=== PATIENT | male | born 1930 | race Caucasian/White ===

== ENCOUNTER 2016-12-19 16:44 | Emergency (ER) | payer OTHER ==
[~2016-12-19] VITALS: Ht 170.2 cm; Wt 72.7 kg
[~2016-12-19 16:44] MED LIST: CALC0.5C4 PO; CLOP75TA27 PO; DOCU-144 PO; GABA300C16 PO; MELO-110 PO; METO50TA16 PO; TAMS0.4C2 PO
[2016-12-19 17:08] VITALS: Ht 170.2 cm; Wt 72.7 kg
[2016-12-19] MEDS ORDERED: CARV12.579 PO (19:47)
[2016-12-19] MEDS ORDERED: CLON-379 PO (19:51)
[2016-12-19] MEDS ORDERED: ZOLP5TAB6 PO (19:51)
[2016-12-19] MEDS ORDERED: HYDR-3671 PO (19:53)
[2016-12-19] MEDS ORDERED: AMLO-147 PO (19:54)
[2016-12-19] MEDS ORDERED: FAMO20TA18 PO (19:55)
[2016-12-19] MEDS ORDERED: BICA50TA4 PO (19:55)
[2016-12-19 21:00] VITALS: BP 145/72; PULSE 77; RESP 19; TEMP 99.3
[2016-12-19] MEDS ORDERED: NITROFURANTOIN (SR) 100 MG CAP PO ONE (21:00)
[2016-12-19 21:04] LABS: ADD UMIC YES; URINE BILIRUBIN (Dip) 1+ (NEGATIVE); URINE BLOOD (Dip) 3+ (NEGATIVE); URINE GLUCOSE (Dip) NEGATIVE (NEGATIVE); URINE KETONES (Dip) NEGATIVE (NEGATIVE); URINE LEUKOCYTE ESTERASE (Dip) 2+ (NEGATIVE); URINE NITRITE (Dip) NEGATIVE (NEGATIVE); URINE TOTAL PROTEIN (Dip) 4+ (NEGATIVE); URINE UROBILINOGEN (Dip) 0.2 E.U./dL (0.1-1.0)
[2016-12-19 21:06] LABS: URINE COLOR RED (YELLOW)
--- NOTE | 2016-12-19 21:10 | ERD ---
ER Documentation Chief Complaint Date/Time DATE: 12/19/16 TIME: 21:08 Chief Complaint urine cath is loose and causing pain HPI This is an 86-year-old male who presents to the emergency room for evaluation of a malfunctioning urinary catheter. This patient does have a catheter in place for benign prostatic hypertrophy. The patient states that his catheter is "loose and causing him some pain". The patient denies any fevers, chills or back pain at this time ROS All systems reviewed and are negative except as per history of present illness. Medications Home Meds Reported Medications Bicalutamide* (Bicalutamide*) 50 Mg Tablet, 50 MG PO DAILY, TAB 12/19/16 Famotidine* (Famotidine*) 20 Mg Tablet, 20 MG PO QHS, #30 TAB 12/19/16 Amlodipine Besylate* (Amlodipine Besylate*) 10 Mg Tablet, 10 MG PO DAILY, #30 TAB 12/19/16 Hydralazine Hcl* (Hydralazine Hcl*) 25 Mg Tab, 25 MG PO TID, #90 TAB HOLD IF SBP<110 12/19/16 Zolpidem Tartrate* (Zolpidem Tartrate*) 5 Mg Tablet, 5 MG PO QHS Y for INSOMNIA , #30 TAB 12/19/16 Clonidine Hcl* (Clonidine Hcl*) 0.1 Mg Tab, 0.1 MG PO Q6, TAB 12/19/16 Carvedilol* (Carvedilol*) 12.5 Mg Tablet, 12.5 MG PO BID, #60 TAB HOLD IF SBP<110,HR<60 12/19/16 Discontinued Reported Medications Meloxicam* (Mobic*) 15 Mg Tablet, 15 MG PO DAILY, TAB 07/25/15 Docusate Sodium* (Colace*) 100 Mg Capsule, 100 MG PO BID Y for CONSTIPATION, CAP 07/25/15 Tamsulosin Hcl* (Tamsulosin Hcl*) 0.4 Mg Cap.er.24h, 0.4 MG PO HS, CAP 07/25/15 Clopidogrel Bisulfate (Clopidogrel) 75 Mg Tablet, 75 MG PO DAILY, TAB 07/25/15 Calcitriol* (Calcitriol*) 0.5 Mcg Capsule, 0.5 MCG PO DAILY, CAP 07/25/15 Gabapentin* (Gabapentin*) 300 Mg Capsule, 300 MG PO BID, CAP 07/25/15 Metoprolol Succinate* (Toprol XL*) 50 Mg Tab.er.24h, 50 MG PO DAILY, TAB 07/25/15 Allergies Allergies: Coded Allergies: No Known Allergy (Verified , 12/19/16) PMhx/Soc History of Surgery: No Anesthesia Reaction: No Hx Neurological Disorder: Yes (syncope,CVA w/ LLE residual) Hx Respiratory Disorders: Yes (COPD) Hx Cardiac Disorders: Yes (HTN) Hx Psychiatric Problems: No Hx Miscellaneous Medical Probl: Yes (CKD, anemia,BPH W/ Nascimento cath) Hx Alcohol Use: Yes (rarely) Hx Substance Use: No Hx Tobacco Use: Yes Smoking Status: Former smoker Physical Exam Vitals Vital Signs Date Time Temp Pulse Resp B/P Pulse Ox O2 Delivery O2 Flow Rate FiO2 12/19/16 19:14 87 13 165/90 99 Room Air 12/19/16 17:08 99.3 87 18 160/75 96 Physical Exam Const: No acute distress Head: Atraumatic Eyes: Normal Conjunctiva ENT: Normal External Ears, Nose and Mouth. Neck: Full range of motion..~ No meningismus. Resp: Clear to auscultation bilaterally Cardio: Regular rate and rhythm, no murmurs Abd: Soft, non tender, non distended. Normal bowel sounds Skin: No petechiae or rashes Back: No midline or flank tenderness Ext: No cyanosis, or edema : Nascimento catheter in place Neur: Awake and alert Psych: Normal Mood and Affect Results 24 hrs Laboratory Tests Test 12/19/16 20:15 Urine Bilirubin 1+ Urine Clarity CLOUDY Urine Color RED Urine Glucose NEGATIVE% Urine Hemoglobin 3+ Urine Ictotest Pending Urine Ketones NEGATIVE Urine Leukocyte Esterase 2+ Urine Microscopic RBC Pending Urine Microscopic WBC Pending Urine Nitrite NEGATIVE Urine Specific [place] 1.025 Urine Total Protein 4+ Urine Urobilinogen 0.2 E.U./dL Urine pH 5.5 Current Medications Medications (Trade) Dose Ordered Sig/Scarlet Route PRN Reason Start Time Stop Time Status Last Admin Dose Admin Nitrofurantoin Macrocrystals (Macrobid) 100 mg ONCE ONCE PO 12/19/16 21:00 12/19/16 21:01 DC Procedures/MDM This 86-year-old male presents to the ER for evaluation of malfunctioning Nascimento catheter. We evaluated the Nascimento catheter was determined that the patient's Nascimento catheter did not have enough saline in the balloon. His catheter was replaced. The patient did have cloudy urine which does show acute urinary tract infection. Urine culture was sent. This patient was given Macrobid in the emergency room will be discharged home with a prescription for Macrobid. Departure Diagnosis: Primary Impression: Acute cystitis Additional Impression: Complication of catheter Condition: Stable ADRIAN GONZALEZ DO Dec 19, 2016 21:10
[2016-12-19] MEDS ORDERED: NITR-58 PO (21:11)
[2016-12-19 21:16] LABS: URINE RBCS >200 /HPF (0)
[2016-12-19 21:17] LABS: ICTOTEST NEGATIVE (NEGATIVE); SQUAMOUS EPITHELIAL CELL,UR FEW
[2016-12-19 21:18] LABS: BACTERIA,URINE MANY
== END 2016-12-19 22:10 | disposition home or self-care (01) ==
LOC: E/R 16:44
DX: N30.00 Acute cystitis without hematuria (principal); I12.9 Hypertensive chronic kidney disease with stage 1 through stage 4 chronic kidney disease, or unspecified chronic kidney disease; J44.9 Chronic obstructive pulmonary disease, unspecified; N18.9 Chronic kidney disease, unspecified; R40.2142 Coma scale, eyes open, spontaneous, at arrival to emergency department; R40.2252 Coma scale, best verbal response, oriented, at arrival to emergency department; R40.2362 Coma scale, best motor response, obeys commands, at arrival to emergency department; Y73.3 Surgical instruments, materials and gastroenterology and urology devices (including sutures) associated with adverse incidents; Z87.891 Personal history of nicotine dependence
CPT/HCPCS: 51702; 81001; 87086; Z7502; Z7610; 81003

== ENCOUNTER 2016-12-21 08:46 | Emergency (ER) | payer OTHER ==
[~2016-12-21] VITALS: Wt 72.4 kg
[~2016-12-21 08:46] MED LIST changes: +AMLO-147 PO; +BICA50TA4 PO; -CALC0.5C4 PO; +CARV12.579 PO; +CLON-379 PO; -CLOP75TA27 PO; -DOCU-144 PO; +FAMO20TA18 PO; -GABA300C16 PO; +HYDR-3671 PO; -MELO-110 PO; -METO50TA16 PO; +NITR-58 PO; -TAMS0.4C2 PO; +ZOLP5TAB6 PO
[2016-12-21 09:36] LABS: ADD SCAN DIFF NO
[2016-12-21 09:42] LABS: BASOPHILS % 0.2 % (0.0-2.0); EOSINOPHILS % 0.4 % (0.0-7.0); HEMATOCRIT 32.2 % (42.0-52.0); HEMOGLOBIN 10.3 g/dl (14.0-18.0); LYMPHOCYTES # 1.5 10^3/ul (0.8-2.9); LYMPHOCYTES % 13.5 % (15.0-51.0); MEAN CORPUSCULAR HEMOGLOBIN 30.6 pg (29.0-33.0); MEAN CORPUSCULAR VOLUME 95.5 fl (82.0-101.0); MONOCYTE # 1.1 10^3/ul (0.3-0.9); NEUTROPHIL # 8.3 10^3/ul (1.6-7.5); NEUTROPHILS % 75.5 % (39.0-77.0); PLATELET COUNT 203 10^3/UL (140-415); RED BLOOD COUNT 3.37 10^6/ul (4.70-6.10); RED CELL DISTRIBUTION WIDTH 12.2 % (11.5-14.5); WHITE BLOOD COUNT 10.9 10^3/ul (4.8-10.8)
[2016-12-21 09:47] LABS: MEAN PLATELET VOLUME 10.2 fl (7.4-10.4)
[2016-12-21 09:48] LABS: INR 1.07; POTASSIUM 4.4 mmol/L (3.5-5.1); PROTIME 13.9 Sec (12.2-14.2); PT RATIO 1.1
[2016-12-21 09:49] LABS: PARTIAL THROMBOPLASTIN TIME 28.8 Sec (25.0-35.0)
[2016-12-21 09:51] LABS: CREATININE 2.1 mg/dl (0.61-1.24)
[2016-12-21 09:52] LABS: CALCIUM 10.7 mg/dl (8.4-10.2)
[2016-12-21 09:57] LABS: ADD UMIC YES; URINE BILIRUBIN (Dip) NEGATIVE (NEGATIVE); URINE BLOOD (Dip) 3+ (NEGATIVE); URINE GLUCOSE (Dip) NEGATIVE (NEGATIVE); URINE KETONES (Dip) NEGATIVE (NEGATIVE); URINE LEUKOCYTE ESTERASE (Dip) 3+ (NEGATIVE); URINE NITRITE (Dip) NEGATIVE (NEGATIVE); URINE TOTAL PROTEIN (Dip) 2+ (NEGATIVE); URINE UROBILINOGEN (Dip) 0.2 E.U./dL (0.1-1.0)
[2016-12-21 10:01] LABS: URINE COLOR RED (YELLOW)
[2016-12-21 10:02] LABS: BACTERIA,URINE FEW; SQUAMOUS EPITHELIAL CELL,UR FEW; URINE RBCS >200 /HPF (0)
--- NOTE | 2016-12-21 10:35 | ERD ---
ER Documentation Chief Complaint Date/Time DATE: 12/21/16 TIME: 10:32 Chief Complaint low ap with pressure , kim not draining well since last night. no n/v. HPI Pleasant 86-year-old male. 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 Patient describes lower abdominal fullness. He feels that his Kim catheter is not draining since yesterday evening. The patient has an indwelling Kim catheter. He was recently started on Macrobid for UTI 3 days ago. No fevers or chills, no flank pain, no nausea vomiting or diarrhea. ROS All systems reviewed and are negative except as per history of present illness. Medications Home Meds Active Scripts Nitrofurantoin Monohyd Macrocr* (Macrobid*) 100 Mg Capsr, 100 MG PO BID for 14 Days, CAP Prov:ADRIAN GONZALEZ DO 12/19/16 Reported Medications Bicalutamide* (Bicalutamide*) 50 Mg Tablet, 50 MG PO DAILY, TAB 12/19/16 Famotidine* (Famotidine*) 20 Mg Tablet, 20 MG PO QHS, #30 TAB 12/19/16 Amlodipine Besylate* (Amlodipine Besylate*) 10 Mg Tablet, 10 MG PO DAILY, #30 TAB 12/19/16 Hydralazine Hcl* (Hydralazine Hcl*) 25 Mg Tab, 25 MG PO TID, #90 TAB HOLD IF SBP<110 12/19/16 Zolpidem Tartrate* (Zolpidem Tartrate*) 5 Mg Tablet, 5 MG PO QHS Y for INSOMNIA , #30 TAB 12/19/16 Clonidine Hcl* (Clonidine Hcl*) 0.1 Mg Tab, 0.1 MG PO Q6, TAB 12/19/16 Carvedilol* (Carvedilol*) 12.5 Mg Tablet, 12.5 MG PO BID, #60 TAB HOLD IF SBP<110,HR<60 12/19/16 Discontinued Reported Medications Meloxicam* (Mobic*) 15 Mg Tablet, 15 MG PO DAILY, TAB 07/25/15 Docusate Sodium* (Colace*) 100 Mg Capsule, 100 MG PO BID Y for CONSTIPATION, CAP 07/25/15 Tamsulosin Hcl* (Tamsulosin Hcl*) 0.4 Mg Cap.er.24h, 0.4 MG PO HS, CAP 07/25/15 Clopidogrel Bisulfate (Clopidogrel) 75 Mg Tablet, 75 MG PO DAILY, TAB 07/25/15 Calcitriol* (Calcitriol*) 0.5 Mcg Capsule, 0.5 MCG PO DAILY, CAP 07/25/15 Gabapentin* (Gabapentin*) 300 Mg Capsule, 300 MG PO BID, CAP 07/25/15 Metoprolol Succinate* (Toprol XL*) 50 Mg Tab.er.24h, 50 MG PO DAILY, TAB 07/25/15 Allergies Allergies: Coded Allergies: No Known Allergy (Verified , 12/19/16) PMhx/Soc History of Surgery: No Anesthesia Reaction: No Hx Neurological Disorder: Yes (syncope,CVA w/ LLE residual) Hx Respiratory Disorders: Yes (COPD) Hx Cardiac Disorders: Yes (HTN) Hx Psychiatric Problems: No Hx Miscellaneous Medical Probl: Yes (CKD, anemia,BPH W/ Kim cath) Hx Alcohol Use: Yes (rarely) Hx Substance Use: No Hx Tobacco Use: Yes Smoking Status: Current every day smoker FmHx Family History: No diabetes Physical Exam Vitals Vital Signs Date Time Temp Pulse Resp B/P Pulse Ox O2 Delivery O2 Flow Rate FiO2 12/21/16 09:30 98.6 78 20 130/77 100 Room Air 12/21/16 08:49 98.6 68 20 130/77 100 Physical Exam General: Well developed, well nourished, no acute distress Head: Normocephalic, atraumatic. Eyes: Pupils equally reactive, EOM intact ENT: Moist mucous membranes Neck: Supple, no lymphadenopathy Respiratory: Lungs clear bilaterally, no distress Cardiovascular: RRR, no murmurs, rubs, or gallops Abdominal: Soft, bladder distention, no focal tenderness no pulsatile mass : Deferred MSK: No edema, no unilateral swelling, 5/5 strength Neurologic: Alert and oriented, moving all extremities, normal speech, no focal weakness, no cerebellar signs Skin: No rash Psych: Normal mood Result Diagram: 12/21/1630 12/21/16 0930 Results 24 hrs Laboratory Tests Test 12/21/16 09:25 12/21/16 09:30 Urine Bacteria FEW Urine Bilirubin NEGATIVE Urine Clarity CLOUDY Urine Color RED Urine Glucose NEGATIVE% Urine Hemoglobin 3+ Urine Ketones NEGATIVE Urine Leukocyte Esterase 3+ Urine Microscopic RBC >200/HPF Urine Microscopic WBC 25-50/HPF Urine Nitrite NEGATIVE Urine Specific [place] 1.025 Urine Squamous Epithelial Cells FEW Urine Total Protein 2+ Urine Urobilinogen 0.2 E.U./dL Urine pH 5.5 Activated Partial Thromboplast Time 28.8Sec Anion Gap 18 Basophils # 0.010^3/ul Basophils % 0.2% Blood Urea Nitrogen 32mg/dl Calcium Level 10.7mg/dl Carbon Dioxide Level 23mmol/L Chloride Level 102mmol/L Creatinine 2.10mg/dl Eosinophils # 0.010^3/ul Eosinophils % 0.4% Glucose Level 169mg/dl Hematocrit 32.2% Hemoglobin 10.3g/dl INR International Normalized Ratio 1.07 Lymphocytes # 1.510^3/ul Lymphocytes % 13.5% Mean Corpuscular Hemoglobin 30.6pg Mean Corpuscular Hemoglobin Concent 32.0g/dl Mean Corpuscular Volume 95.5fl Mean Platelet Volume 10.2fl Monocytes # 1.110^3/ul Monocytes % 10.0% Neutrophils # 8.310^3/ul Neutrophils % 75.5% Nucleated Red Blood Cells # 0.010^3/ul Nucleated Red Blood Cells % 0.0/100WBC Platelet Count 61639^3/UL Potassium Level 4.4mmol/L Prothrombin Time 13.9Sec Prothrombin Time Ratio 1.1 Red Blood Count 3.3710^6/ul Red Cell Distribution Width 12.2% Sodium Level 139mmol/L White Blood Count 10.910^3/ul Procedures/MDM LAB INTERPRETATION: No coagulopathy. Creatinine consistent with baseline MEDICAL DECISION MAKING: The patient presents to the emergency room complaining of abdominal fullness. The patient has an indwelling Kim catheter, there is likely blockage. The patient exhibits no signs or symptoms concerning for alternative acute intra- abdominal process. Given that the patient did have some hematuria with Kim catheter changed laboratory testing will be initiated. Patient is currently taking Macrobid for presumed UTI. ER COURSE: The patient had gross hematuria. A Kim catheter was changed. The patient had good output and alleviation of symptoms completely. His laboratory testing shows no evidence of coagulopathy. The patient is currently on Macrobid. Urine culture sent. The patient is safe for discharge at this point. Follow- up with primary care physician and urologist is reasonable. I kept the patient and/or family informed of laboratory and diagnostic imaging results throughout the emergency room course. DISPOSITION PLAN: We discussed follow up with the patient's primary care doctor within 24 to 48 hours as needed. We also discussed return to the emergency room for worsening symptoms or worsening condition. Departure Diagnosis: Primary Impression: Urinary retention Additional Impression: Hematuria Condition: Stable Patient Instructions: Hematuria, Urinary Retention, Male Referrals: ALEXX BAKER MD [facility] () Usted se adams hecho un examen mdico de control que le indica que no est en eduar condicin que requiera tratamiento urgente en el Departamento de Emergencia. Un estudio ms profundo y el tratamiento de lake condicin pueden esperar sin ningn riesgo hasta que usted sea atendida/o en el consultorio de lake mdico o eduar cl millie. Es responsabilidad suya arreglar eduar roberth para el seguimiento del jaspreet. MANEJO DE CONDICIONES NO URGENTES EN EL FUTURO 1) Si usted tiene un mdico de atencin primaria: Usted debera llamar a lake mdico de atencin primaria antes de venir al departamento de emergencia. Despus de las horas de consultorio, lake doctor o lake asociado/a est disponible por telfono. El mdico o enfermero de aura en el servicio telefnico puede asesorarle por aurea medio para atender el problema, o jaspreet contrario se puede programar eduar roberth. 2) Si usted no tiene un mdico de atencin primaria: Llame al mdico o clnica de referencia que aparece abajo mounika las horas de consultorio para hacer eduar roberth para que le vean. CLINICAS: [facility] [phone] [facility] [phone] [address] [facility] 166 [phone] [address] [facility] 597 [phone] [address] [facility] 326 [phone] [address] [facility] [phone] [facility] () [place] se adams hecho un examen mdico de control que le indica que no est en eduar condicin que requiera tratamiento urgente en el Departamento de Emergencia. Un estudio ms profundo y el tratamiento de lake condicin pueden esperar sin ningn riesgo hasta que usted sea atendida/o en el consultorio de lake mdico o eduar cl millie. Es responsabilidad suya arreglar eduar roberth para el seguimiento del jaspreet. MANEJO DE CONDICIONES NO URGENTES EN EL FUTURO 1) Si usted tiene un mdico de atencin primaria: Usted debera llamar a lake mdico de atencin primaria antes de venir al departamento de emergencia. Despus de las horas de consultorio, lake doctor o lake asociado/a est disponible por telfono. El mdico o enfermero de aura en el servicio telefnico puede asesorarle por aurea medio para atender el problema, o jaspreet contrario se puede programar eduar roberth. 2) Si usted no tiene un mdico de atencin primaria: Llame al mdico o condado institucions de referencia que aparece abajo mounika las horas de consultorio para hacer eduar roberth para que le vean. SI USTED NO PUEDE PAGAR PARA NATALIIA UN MEDICO puede ir a: [facility] [address] [place] [address] [facility] [address] [place] [address] [facility] [address] [place] [address] [facility] [facility] [address] [place] [address] Additional Instructions: Llame al doctor nombrado abajo (Referral Sources) MAANA y chelsea eduar ROBERTH PARA DENTRO DE EDUAR SEMANA. Dgale a la secretaria que nosotros le instruimos hacer esta roberth.Avise o llame si lake condicin se empeora antes de la roberth. ISIDORO HOWELL MD Dec 21, 2016 10:35
[2016-12-21 11:26] VITALS: BP 107/75; PULSE 75; RESP 20; TEMP 98.6
== END 2016-12-21 12:07 | disposition home or self-care (01) ==
LOC: E/R 08:46
DX: R33.9 Retention of urine, unspecified (principal); R31.9 Hematuria, unspecified; I12.9 Hypertensive chronic kidney disease with stage 1 through stage 4 chronic kidney disease, or unspecified chronic kidney disease; N18.9 Chronic kidney disease, unspecified; J44.9 Chronic obstructive pulmonary disease, unspecified; F17.210 Nicotine dependence, cigarettes, uncomplicated; R40.2142 Coma scale, eyes open, spontaneous, at arrival to emergency department; R40.2252 Coma scale, best verbal response, oriented, at arrival to emergency department; R40.2362 Coma scale, best motor response, obeys commands, at arrival to emergency department
CPT/HCPCS: 51702; 80048; 81001; 85025; 85610; 85730; 87086; Z7502; 81003

== ENCOUNTER 2016-12-30 08:18 | Emergency (ER) | END 2016-12-30 10:40 | disposition home or self-care (01) | DX: Z46.6 Encounter for fitting and adjustment of urinary device (principal); J44.9 Chronic obstructive pulmonary disease, unspecified; I12.9 Hypertensive chronic kidney disease with stage 1 through stage 4 chronic kidney disease, or unspecified chronic kidney disease; N18.9 Chronic kidney disease, unspecified; F17.210 Nicotine dependence, cigarettes, uncomplicated ==

== ENCOUNTER 2017-01-06 08:33 | Emergency (ER) | payer OTHER ==
[~2017-01-06] VITALS: Wt 69.0 kg
[2017-01-06] MEDS ORDERED: ONDANSETRON 4 MG INJ IV STA (09:04)
[2017-01-06] MEDS ORDERED: morphine 2 MG INJ IV STA (09:04)
--- NOTE | 2017-01-06 09:24 | ERD ---
ER Documentation Chief Complaint Date/Time DATE: 01/06/17 TIME: 09:14 Chief Complaint malfunctioning kim catheter since last night. mild leaking no pain HPI This is an 86-year-old Nepali-speaking male with a known history of hypertension, chronic kidney disease and congestive heart failure with an ejection fraction 45% as well as urinary retention with an indwelling Kim catheter. The patient indicates he started developing urinary retention thought to be secondary to benign prostatic hypertrophy roughly 3 months prior to arrival. He indicates since that time he has had an indwelling Kim catheter. The patient presents to the emergency department today as he noticed some leaking around the catheter site. He has had no gross hematuria. Indicates there is minimal tenderness around the Kim catheter insertion site and in both of his testicles. He had been placed on Macrobid which she states he completed roughly 1 week ago. He has not seen the urologist as he was instructed. He denies any abdominal pain. ROS All systems reviewed and are negative except as per history of present illness. Medications Home Meds Active Scripts Cephalexin* (Keflex*) 500 Mg Capsule, 500 MG PO QID for 10 Days, CAP Prov:NIRAJ TONEY 01/06/17 Reported Medications Bicalutamide* (Bicalutamide*) 50 Mg Tablet, 50 MG PO DAILY, TAB 12/19/16 Famotidine* (Famotidine*) 20 Mg Tablet, 20 MG PO QHS, #30 TAB 12/19/16 Amlodipine Besylate* (Amlodipine Besylate*) 10 Mg Tablet, 10 MG PO DAILY, #30 TAB 12/19/16 Hydralazine Hcl* (Hydralazine Hcl*) 25 Mg Tab, 25 MG PO TID, #90 TAB HOLD IF SBP<110 12/19/16 Zolpidem Tartrate* (Zolpidem Tartrate*) 5 Mg Tablet, 5 MG PO QHS Y for INSOMNIA , #30 TAB 12/19/16 Clonidine Hcl* (Clonidine Hcl*) 0.1 Mg Tab, 0.1 MG PO Q6, TAB 12/19/16 Carvedilol* (Carvedilol*) 12.5 Mg Tablet, 12.5 MG PO BID, #60 TAB HOLD IF SBP<110,HR<60 12/19/16 Discontinued Scripts Nitrofurantoin Monohyd Macrocr* (Macrobid*) 100 Mg Capsr, 100 MG PO BID for 14 Days, CAP Prov:ADRIAN GONZALEZ DO 12/19/16 Allergies Allergies: Coded Allergies: No Known Allergy (Verified , 01/06/17) PMhx/Soc History of Surgery: No Anesthesia Reaction: No Hx Neurological Disorder: Yes (syncope,CVA w/ LLE residual) Hx Respiratory Disorders: Yes (COPD) Hx Cardiac Disorders: Yes (HTN) Hx Psychiatric Problems: No Hx Miscellaneous Medical Probl: Yes (CKD, anemia,BPH W/ Kim cath) Hx Alcohol Use: Yes (rarely) Hx Substance Use: No Hx Tobacco Use: Yes Physical Exam Vitals Vital Signs Date Time Temp Pulse Resp B/P Pulse Ox O2 Delivery O2 Flow Rate FiO2 01/06/17 11:50 68 18 139/89 99 Room Air 01/06/17 08:36 98.6 83 21 155/77 97 Physical Exam Constitutional:Well-developed. Well-nourished. HEENT:Normocephalic. Atraumatic.Pupils were equal round reactive to light. Moist mucous membranes.No tonsillar exudates. Respiratory: Not using accessory muscles of respiration.Lungs were clear to auscultation bilaterally. No rhonchi. No rales. No wheezing. Cardiovascular: Regular rate regular rhythm.No murmurs. No rubs were appreciated.S1, S2 normal. Distal pulses are palpable 2+ bilaterally. GI: Abdomen was soft. Nontender. Non Distended. No pulsatile abdominal masses or bruits. No rebound. No guarding. Bowel sounds were present and normal. Bladder was not palpable : Kim catheter in place. Patient is circumcised there is no evidence of phimosis or paraphimosis. Bilateral testicular tenderness with no testicular masses. Normal light of both testicles. Cremaster reflex intact bilaterally. Swelling and tenderness of the glans penis. Urinary meatus localized on the upper right side of the penis consistent with epispadia. Purulent drainage around the urethra site with Kim catheter in place. On dorsal left aspect of the glans penis with a well-circumscribed area of granulation tissue 1 cm in diameter. No necrotic tissue and no pain out of proportion to physical exam. Muscle skeletal: Full range of motion of both the upper and lower extremities bilaterally.Normal muscle tone.No assymetrical calf tenderness or swelling. Skin: No petechia, no purpura. No lesions on the palms or the soles of the feet. No maculopapular rash. NEURO: Patient was alert, awake, orientated x3.No facial droop. Gait observed and normal with no ataxia.Speech had regular rate and rhythm. No focal neurological deficits. Result Diagram: 01/06/17 0930 01/06/17 0930 Results 24 hrs Laboratory Tests Test 01/06/17 09:30 01/06/17 10:30 White Blood Count 6.710^3/ul Red Blood Count 3.2910^6/ul Hemoglobin 10.1g/dl Hematocrit 31.1% Mean Corpuscular Volume 94.5fl Mean Corpuscular Hemoglobin 30.7pg Mean Corpuscular Hemoglobin Concent 32.5g/dl Red Cell Distribution Width 12.2% Platelet Count 26161^3/UL Mean Platelet Volume 10.3fl Neutrophils % 62.4% Lymphocytes % 25.1% Monocytes % 9.6% Eosinophils % 2.1% Basophils % 0.6% Nucleated Red Blood Cells % 0.0/100WBC Neutrophils # 4.210^3/ul Lymphocytes # 1.710^3/ul Monocytes # 0.610^3/ul Eosinophils # 0.110^3/ul Basophils # 0.010^3/ul Nucleated Red Blood Cells # 0.010^3/ul Prothrombin Time 13.2Sec Prothrombin Time Ratio 1.0 INR International Normalized Ratio 1.00 Activated Partial Thromboplast Time 27.1Sec Sodium Level 139mmol/L Potassium Level 4.0mmol/L Chloride Level 103mmol/L Carbon Dioxide Level 26mmol/L Anion Gap 14 Blood Urea Nitrogen 21mg/dl Creatinine 2.17mg/dl Glucose Level 147mg/dl Calcium Level 10.5mg/dl Total Bilirubin 0.2mg/dl Direct Bilirubin 0.00mg/dl Indirect Bilirubin 0.2mg/dl Aspartate Amino Transf (AST/SGOT) 28IU/L Alanine Aminotransferase (ALT/SGPT) 10IU/L Alkaline Phosphatase 67IU/L Total Protein 7.9g/dl Albumin 3.7g/dl Globulin 4.20g/dl Albumin/Globulin Ratio 0.88 Urine Color LT. YELLOW Urine Clarity CLEAR Urine pH 6.0 Urine Specific [place] 1.010 Urine Ketones NEGATIVE Urine Nitrite NEGATIVE Urine Bilirubin NEGATIVE Urine Urobilinogen 0.2 E.U./dL Urine Leukocyte Esterase 1+ Urine Microscopic RBC 0-2/HPF Urine Microscopic WBC 10-25/HPF Urine Epithelial Cells FEW Urine Bacteria FEW Urine Hemoglobin TRACE Urine Glucose NEGATIVE% Urine Total Protein 1+ Current Medications Medications (Trade) Dose Ordered Sig/Scarlet Route PRN Reason Start Time Stop Time Status Last Admin Dose Admin Morphine Sulfate (morphine) 2 mg ONCE STAT IV 01/06/17 09:04 01/06/17 09:07 DC 01/06/17 09:35 Ondansetron HCl (Zofran Inj) 4 mg ONCE STAT IV 01/06/17 09:04 01/06/17 09:07 DC 01/06/17 09:34 Procedures/MDM This is a very pleasant 86-year-old male with a known history of urinary retention and indwelling Kim catheter. The catheter had been replaced by nursing staff and myself in the emergency department given that it had been there for roughly 2-3 months. Urine sample had been sent from the urine obtained from the placement of new Kim catheter that indicated the patient did have a urinary tract infection. There is no leukocytosis. The patient was afebrile. Urine culture was sent and the patient was given a dose of IV ceftriaxone. 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 The patient's BUN and creatinine were elevated at 21 and 2.17 however this is improvement from his previous renal function test taken December 21, 2016 roughly 2 weeks prior to arrival with a BUN was 32 and creatinine was 2.10. The patient does have a known history of chronic kidney disease. The patient's daughter had come to pick the patient up. I indicated that they need to follow-up on an outpatient basis with the urologist. He will be sent home with Keflex. The patient was discharged home in fair condition. They were instructed to return to the emergency department at any time if there was any worsening of their condition. The patient stated they would follow up with their PCP in the next 24-48 hours to initiate a suitable medication regimen under the care of their PCP as well as to allow their PCP to monitor any drug reactions. The patient was discharged home with prescriptions after they gave informed consent to the new medication. They were also fully informed by myself on the adverse effects and adverse drug interactions in order to provide adequate safeguards to prevent possible adverse reactions to medications. Observation Note: Time: 4 hours Family Hx: No Hypertension Evaluation: Multiple exams showed improving symptoms and no evidence of urinary retention or obstructive uropathy. Was obtained a testicular ultrasound reviewed by myself and the radiologist which showed no evidence of a testicular mass or torsion Departure Diagnosis: Primary Impression: Encounter for urinary catheter Additional Impression: Urinary tract infection Urinary tract infection type: acute cystitis Hematuria presence: without hematuria Qualified Code: N30.00 - Acute cystitis without hematuria Condition: NIRAJ Mcnally Jan 06, 2017 09:24
[2017-01-06 09:52] LABS: ADD SCAN DIFF NO
[2017-01-06 09:56] LABS: BASOPHILS % 0.6 % (0.0-2.0); EOSINOPHILS # 0.1 10^3/ul (0.0-0.5); EOSINOPHILS % 2.1 % (0.0-7.0); HEMATOCRIT 31.1 % (42.0-52.0); HEMOGLOBIN 10.1 g/dl (14.0-18.0); LYMPHOCYTES # 1.7 10^3/ul (0.8-2.9); LYMPHOCYTES % 25.1 % (15.0-51.0); MEAN CORPUSCULAR HEMOGLOBIN 30.7 pg (29.0-33.0); MEAN CORPUSCULAR HGB CONC 32.5 g/dl (32.0-37.0); MEAN CORPUSCULAR VOLUME 94.5 fl (82.0-101.0); MEAN PLATELET VOLUME 10.3 fl (7.4-10.4); MONOCYTE # 0.6 10^3/ul (0.3-0.9); MONOCYTES % 9.6 % (0.0-11.0); NEUTROPHIL # 4.2 10^3/ul (1.6-7.5); NEUTROPHILS % 62.4 % (39.0-77.0); PLATELET COUNT 307 10^3/UL (140-415); RED BLOOD COUNT 3.29 10^6/ul (4.70-6.10); RED CELL DISTRIBUTION WIDTH 12.2 % (11.5-14.5); WHITE BLOOD COUNT 6.7 10^3/ul (4.8-10.8)
[2017-01-06 10:07] LABS: ALBUMIN 3.7 g/dl (3.3-4.9)
[2017-01-06 10:10] LABS: ALBUMIN/GLOBULIN RATIO 0.88; BILIRUBIN,INDIRECT 0.2 mg/dl (0-1.1); BILIRUBIN,TOTAL 0.2 mg/dl (0.2-1.3); CREATININE 2.17 mg/dl (0.61-1.24); TOTAL PROTEIN 7.9 g/dl (6.1-8.1)
[2017-01-06 10:11] LABS: CALCIUM 10.5 mg/dl (8.4-10.2)
[2017-01-06 10:16] LABS: PARTIAL THROMBOPLASTIN TIME 27.1 Sec (25.0-35.0); PROTIME 13.2 Sec (12.2-14.2)
[2017-01-06 10:50] LABS: ADD UMIC YES; URINE BILIRUBIN (Dip) NEGATIVE (NEGATIVE); URINE BLOOD (Dip) TRACE (NEGATIVE); URINE COLOR LT. YELLOW (YELLOW); URINE GLUCOSE (Dip) NEGATIVE (NEGATIVE); URINE KETONES (Dip) NEGATIVE (NEGATIVE); URINE LEUKOCYTE ESTERASE (Dip) 1+ (NEGATIVE); URINE NITRITE (Dip) NEGATIVE (NEGATIVE); URINE TOTAL PROTEIN (Dip) 1+ (NEGATIVE); URINE UROBILINOGEN (Dip) 0.2 E.U./dL (0.1-1.0)
--- NOTE | 2017-01-06 11:04 | RADRPT ---
PROCEDURE: Scrotal ultrasound CLINICAL INDICATION: Bilateral testicular tenderness TECHNIQUE: Scrotal ultrasound was performed with sagittal and transverse views. Fajardo scale and co gina imaging was performed. Images were reviewed on high resolution PACS monitors. COMPARISON: None available FINDINGS: The right testicle measures 2.9 cm in length. There is normal size and echogenicity and morphology o f the right testicle with normal blood flow. The right epididymis is normal. The left testicle measures 2.9 cm in length. There is normal size and echogenicity and morphology of the left testicle with normal blood flow. The left epididymis is normal. No hydrocele or varicocele is seen. IMPRESSION: 1. Unremarkable scrotal ultrasound. No evidence of testicular torsion or mass is identified. RPTAT: PP .Vladimir Wolfe MD, Date Time Electronically viewed and signed by .Vladimir Wolfe MD, on 01/06/2017 11:04 .R/
[2017-01-06 11:05] LABS: BACTERIA,URINE FEW; URINE RBCS 0-2 /HPF ([, 0])
[2017-01-06] MEDS ORDERED: CEPH-443 PO (12:21)
[2017-01-06] MEDS ORDERED: SOD CHLORIDE 0.9% 1,000 ML IV STA (12:38)
[2017-01-06 12:40] VITALS: BP 129/88; PULSE 68; RESP 18; TEMP 98.4
== END 2017-01-06 12:49 | disposition home or self-care (01) ==
LOC: E/R 08:33
DX: Z46.6 Encounter for fitting and adjustment of urinary device (principal); N30.00 Acute cystitis without hematuria; I12.9 Hypertensive chronic kidney disease with stage 1 through stage 4 chronic kidney disease, or unspecified chronic kidney disease; N18.9 Chronic kidney disease, unspecified; J44.9 Chronic obstructive pulmonary disease, unspecified; Z87.891 Personal history of nicotine dependence
CPT/HCPCS: 51702; 76870; 80053; 81001; 84153; 84154; 85025; 85610; 85730; 87070; 87086; J2270; J2405; 81003; 96374; 96375

== ENCOUNTER 2017-02-13 13:26 | Inpatient (IN) | payer BC, OTHER ==
[~2017-02-13] VITALS: Ht 162.6 cm; Wt 68.5 kg
[~2017-02-13 13:26] MED LIST changes: +CEPH-443 PO; -NITR-58 PO; -ZOLP5TAB6 PO; +ZOLP5TAB7 PO
[2017-02-13 17:53] LABS: ADD UMIC YES; URINE BILIRUBIN (Dip) NEGATIVE (NEGATIVE); URINE BLOOD (Dip) 3+ (NEGATIVE); URINE COLOR LT. YELLOW (YELLOW); URINE GLUCOSE (Dip) NEGATIVE (NEGATIVE); URINE KETONES (Dip) NEGATIVE (NEGATIVE); URINE LEUKOCYTE ESTERASE (Dip) 2+ (NEGATIVE); URINE NITRITE (Dip) NEGATIVE (NEGATIVE); URINE TOTAL PROTEIN (Dip) 1+ (NEGATIVE); URINE UROBILINOGEN (Dip) 0.2 E.U./dL (0.1-1.0)
[2017-02-13 18:02] LABS: ADD SCAN DIFF NO
[2017-02-13 18:16] LABS: BASOPHILS % 0.4 % (0.0-2.0); EOSINOPHILS # 0.2 10^3/ul (0.0-0.5); EOSINOPHILS % 3.4 % (0.0-7.0); HEMATOCRIT 34.7 % (42.0-52.0); HEMOGLOBIN 11.1 g/dl (14.0-18.0); LYMPHOCYTES # 1.8 10^3/ul (0.8-2.9); LYMPHOCYTES % 26.6 % (15.0-51.0); MEAN CORPUSCULAR HEMOGLOBIN 30.1 pg (29.0-33.0); MEAN PLATELET VOLUME 10.5 fl (7.4-10.4); MONOCYTE # 0.6 10^3/ul (0.3-0.9); MONOCYTES % 8.8 % (0.0-11.0); NEUTROPHILS % 60.5 % (39.0-77.0); PLATELET COUNT 287 10^3/UL (140-415); RED BLOOD COUNT 3.69 10^6/ul (4.70-6.10); WHITE BLOOD COUNT 6.7 10^3/ul (4.8-10.8)
[2017-02-13 18:22] LABS: POTASSIUM 4.3 mmol/L (3.5-5.1)
[2017-02-13 18:25] LABS: CREATININE 2.29 mg/dl (0.61-1.24)
[2017-02-13 18:26] LABS: CALCIUM 10.5 mg/dl (8.4-10.2)
[2017-02-13 18:37] LABS: URINE RBCS >200 /HPF (0)
[2017-02-13 18:38] LABS: BACTERIA,URINE MODERATE; SQUAMOUS EPITHELIAL CELL,UR FEW
[2017-02-13] MEDS ORDERED: SOD CHLORIDE 0.9% 1,000 ML IV SCH ×2 (20:39→21:19)
[2017-02-13] MEDS ORDERED: PIPER-TAZO 3.375 GM IV (PMX) 100 ML IVPB STA (20:40)
--- NOTE | 2017-02-13 20:45 | ERA ---
ER Documentation Chief Complaint Date/Time DATE: 02/13/17 TIME: 20:42 Chief Complaint URINE CATH PROBLEM STATES ITS RED AND SWOLLEN AROUND THE AREA HPI This 86-year-old male with a history of epispadias and indwelling Nascimento catheter who is here because he has decrease in urine output in his Nascimento catheter. He also is complaining of some discharge for the past 3-4 days from the penis that is very malodorous, states he has no fever or abdominal pain no vomiting or diarrhea. ROS All systems reviewed and are negative except as per history of present illness. Medications Home Meds Reported Medications Bicalutamide* (Bicalutamide*) 50 Mg Tablet, 50 MG PO DAILY, TAB 12/19/16 Famotidine* (Famotidine*) 20 Mg Tablet, 20 MG PO QHS, #30 TAB 12/19/16 Amlodipine Besylate* (Amlodipine Besylate*) 10 Mg Tablet, 10 MG PO DAILY, #30 TAB 12/19/16 Hydralazine Hcl* (Hydralazine Hcl*) 25 Mg Tab, 25 MG PO TID, #90 TAB HOLD IF SBP<110 12/19/16 Zolpidem Tartrate* (Zolpidem Tartrate*) 5 Mg Tablet, 5 MG PO QHS Y for INSOMNIA , #30 TAB 12/19/16 Clonidine Hcl* (Clonidine Hcl*) 0.1 Mg Tab, 0.1 MG PO Q6, TAB 12/19/16 Carvedilol* (Carvedilol*) 12.5 Mg Tablet, 12.5 MG PO BID, #60 TAB HOLD IF SBP<110,HR<60 12/19/16 Discontinued Scripts Cephalexin* (Keflex*) 500 Mg Capsule, 500 MG PO QID for 10 Days, CAP Prov:NIRAJ TONEY 01/06/17 Allergies Allergies: Coded Allergies: No Known Allergy (Verified , 02/13/17) PMhx/Soc History of Surgery: No Anesthesia Reaction: No Hx Neurological Disorder: Yes (syncope,CVA w/ LLE residual) Hx Respiratory Disorders: Yes (COPD) Hx Cardiac Disorders: Yes (HTN) Hx Psychiatric Problems: No Hx Miscellaneous Medical Probl: Yes (CKD, anemia,BPH W/ Nascimento cath) Hx Alcohol Use: Yes (rarely) Hx Substance Use: No Hx Tobacco Use: Yes Smoking Status: Unknown if ever smoked FmHx Family History: No coronary disease Physical Exam Vitals Vital Signs Date Time Temp Pulse Resp B/P Pulse Ox O2 Delivery O2 Flow Rate FiO2 02/13/17 19:30 98.7 80 14 145/78 98 02/13/17 13:28 98.8 66 20 150/68 98 Physical Exam Const: Well-developed, well-nourished Head: Atraumatic, normocephalic Eyes: Normal Conjunctiva, PERRLA, EOMI, normal sclera, no nystagmus ENT: Normal External Ears, Nose and Mouth, moist mucus membranes. Neck: Full range of motion. No meningismus, no lymphadenopathy. Resp: Clear to auscultation bilaterally, no wheezing, rhonchi, rales Cardio: Regular rate and rhythm, no murmurs, S1 S2 present Abd: Soft, non tender x 4, non distended. Normal bowel sounds, no guarding or rebound, no pulsitile abdominal masses or bruits : Patient has epispadias with a Nascimento catheter, the ventral surface of the penis where the glans and distal third of the penis is raw skin with a Nascimento catheter passing through the skin, there is an extensive amount of discharge in his diaper and around his penis is extremely malodorous, no signs of foreign ears or abscess, the glans of the penis has a large nearly circumferential hard/ calcified mass. The patient denies having penile cancer Skin: No petechiae or rashes, no ecchymosis , no maculopapular rash Back: No midline or flank tenderness Ext: No cyanosis, or edema, FROM x 4, normal inspection, neurovascularly intact x 4 Neur: Awake and alert, STR 5/5 x 4, sensation intact x 4, no focal findings, cerebellum intact Psych: Normal Mood and Affect Result Diagram: 02/13/17 1730 02/13/17 1730 Results 24 hrs Laboratory Tests Test 02/13/17 17:30 White Blood Count 6.710^3/ul Red Blood Count 3.6910^6/ul Hemoglobin 11.1g/dl Hematocrit 34.7% Mean Corpuscular Volume 94.0fl Mean Corpuscular Hemoglobin 30.1pg Mean Corpuscular Hemoglobin Concent 32.0g/dl Red Cell Distribution Width 12.0% Platelet Count 65358^3/UL Mean Platelet Volume 10.5fl Neutrophils % 60.5% Lymphocytes % 26.6% Monocytes % 8.8% Eosinophils % 3.4% Basophils % 0.4% Nucleated Red Blood Cells % 0.0/100WBC Neutrophils # 4.010^3/ul Lymphocytes # 1.810^3/ul Monocytes # 0.610^3/ul Eosinophils # 0.210^3/ul Basophils # 0.010^3/ul Nucleated Red Blood Cells # 0.010^3/ul Urine Color LT. YELLOW Urine Clarity CLEAR Urine pH 6.0 Urine Specific Alvin 1.015 Urine Ketones NEGATIVE Urine Nitrite NEGATIVE Urine Bilirubin NEGATIVE Urine Urobilinogen 0.2 E.U./dL Urine Leukocyte Esterase 2+ Urine Microscopic RBC >200/HPF Urine Microscopic WBC >50/HPF Urine Squamous Epithelial Cells FEW Urine Bacteria MODERATE Urine Hemoglobin 3+ Urine Glucose NEGATIVE% Urine Total Protein 1+ Sodium Level 140mmol/L Potassium Level 4.3mmol/L Chloride Level 103mmol/L Carbon Dioxide Level 25mmol/L Anion Gap 16 Blood Urea Nitrogen 22mg/dl Creatinine 2.29mg/dl Glucose Level 91mg/dl Calcium Level 10.5mg/dl Current Medications Medications (Trade) Dose Ordered Sig/Scarlet Route PRN Reason Start Time Stop Time Status Last Admin Dose Admin Sodium Chloride (NS) 1,000 ml @ 80 mls/hr [id number] IV 02/13/17 20:39 02/14/17 09:08 Ondansetron HCl (Zofran Inj) 4 mg BRIDGE ORDER PRN IV NAUSEA AND/OR VOMITING 02/13/17 21:00 02/14/17 20:59 Acetaminophen (Tylenol Tab) 650 mg ER BRIDGE PRN PO MILD PAIN/FEVER 02/13/17 21:00 02/14/17 20:59 Procedures/MDM Patient is urinary tract infection white count is normal. We will admit to the hospital for external penile infection Nascimento catheter has been changed. His receive Zosyn and vancomycin. Consult to Dr. Conway of urology Departure Diagnosis: Primary Impression: Infection of penis Additional Impression: Urinary tract infection Qualified Code: N39.0 - Urinary tract infection without hematuria, site unspecified Condition: Stable ALOK REYES DO February 13, 2017 20:45
[2017-02-13] MEDS ORDERED: ACETAMINOPHEN 325 MG TAB PO PRN ×3 (21:00→22:00)
[2017-02-13] MEDS ORDERED: VANCOMYCIN 1 GM (PMX) 250 ML IVPB SCH (21:00)
[2017-02-13] MEDS ORDERED: ONDANSETRON 4 MG INJ IV PRN ×3 (21:00→22:00)
[2017-02-13] MEDS ORDERED: NACL 0.9% 3 ML SYG IV SCH (22:00)
[2017-02-13] MEDS ORDERED: VANCOMYCIN IV PER PHARMACY XX SCH (22:00)
[2017-02-13] MEDS ORDERED: morphine 2 MG INJ IV PRN (22:00)
[2017-02-13 22:25] VITALS: TEMP 98.7
[2017-02-14] VITALS: BP 133/66; PULSE 67; RESP 18
[2017-02-14 00:24] VITALS: Ht 162.6 cm; Wt 68.5 kg
[2017-02-14] MEDS ORDERED: VANCOMYCIN 750 MG in SOD CHLORIDE 0.9% 150 ML IVPB ONE (01:30)
[2017-02-14] MEDS: PIPER-TAZO 2.25 GM (PMX) 50 ML IVPB SCH ×3 (05:24→21:25)
[2017-02-14 06:32] LABS: ADD SCAN DIFF NO
[2017-02-14 06:42] LABS: BASOPHILS % 0.7 % (0.0-2.0); EOSINOPHILS # 0.3 10^3/ul (0.0-0.5); EOSINOPHILS % 5.7 % (0.0-7.0); HEMATOCRIT 32.2 % (42.0-52.0); HEMOGLOBIN 10.3 g/dl (14.0-18.0); LYMPHOCYTES # 1.6 10^3/ul (0.8-2.9); LYMPHOCYTES % 34.4 % (15.0-51.0); MEAN CORPUSCULAR HEMOGLOBIN 29.8 pg (29.0-33.0); MEAN CORPUSCULAR VOLUME 93.1 fl (82.0-101.0); MEAN PLATELET VOLUME 9.6 fl (7.4-10.4); MONOCYTE # 0.5 10^3/ul (0.3-0.9); MONOCYTES % 11.8 % (0.0-11.0); NEUTROPHIL # 2.2 10^3/ul (1.6-7.5); NEUTROPHILS % 47.2 % (39.0-77.0); PLATELET COUNT 299 10^3/UL (140-415); RED BLOOD COUNT 3.46 10^6/ul (4.70-6.10); RED CELL DISTRIBUTION WIDTH 12.2 % (11.5-14.5); WHITE BLOOD COUNT 4.6 10^3/ul (4.8-10.8)
[2017-02-14 07:13] LABS: ALBUMIN 3.3 g/dl (3.3-4.9); ALBUMIN/GLOBULIN RATIO 0.94; BILIRUBIN,INDIRECT 0.3 mg/dl (0-1.1); BILIRUBIN,TOTAL 0.3 mg/dl (0.2-1.3); CALCIUM 9.6 mg/dl (8.4-10.2); CREATININE 2.23 mg/dl (0.61-1.24); POTASSIUM 3.9 mmol/L (3.5-5.1); TOTAL PROTEIN 6.8 g/dl (6.1-8.1)
[2017-02-14 08:05] VITALS: BP 151/84; RESP 17
[2017-02-14] MEDS: ENOXAPARIN 30 MG/0.3 ML SYG SC SCH (08:54)
[2017-02-14] MEDS ORDERED: FAMOTIDINE 20 MG INJ IV SCH (09:00)
[2017-02-14] MEDS ORDERED: ZOLPIDEM 5 MG TAB PO PRN (11:00)
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
[2017-02-14] MEDS: AMLODIPINE 10 MG TAB PO SCH (11:56)
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
[2017-02-14] MEDS: BICALUTAMIDE 50 MG TAB PO SCH (15:13)
[2017-02-14 20:54] VITALS: BP 132/66; RESP 18
[2017-02-14] MEDS: FAMOTIDINE 20 MG TAB PO SCH (21:25)
[2017-02-15 00:24] VITALS: BP 121/65; RESP 18
--- NOTE | 2017-02-15 05:24 | CONS ---
DATE OF ADMISSION: 02/13/2017 DATE OF CONSULTATION: 02/14/2017 REQUESTING PHYSICIAN: Dr. Hood. HISTORY OF PRESENT ILLNESS: This is an 86-year-old male who has a chronic indwelling Nascimento catheter and was admitted to the hospital because of discharge around the Nascimento catheter and penile edema. The patient lives at home with his daughter, Dimple. The patient was admitted to the hospital here [facility] in August of 2016. At that time, he had syncope, was found to have a stroke and positive trop onin and at that time also he had urinary retention with the bladder distended up to the umbilicus a nd bilateral hydronephrosis and renal failure. With the Nascimento catheter put in, the patient's renal function improved and therefore he was kept on the Nascimento catheter. The patient has improved from hi s stroke and is now able to walk a little bit with a walker and also he is able to move all of his e xtremities. At that time, he was aphasic and now he is able to talk. He states that since that time , he has been coming to the emergency room every month to have the Nascimento catheter changed. No attem pts have been made to discontinue the Nascimento catheter and see if he voids. When he was here in [facility] er, he had a CT scan which showed an enlarged prostate as well, but probably his retention could hav e been secondary to his stroke rather than because of his prostate. At the present, the patient is alert and is able to give history. In addition, I did call his daughter and talk to her. Basically , the reason I was concerned is that his PSA was elevated before and he has been on bicalutamide whi ch is usually given for prostate cancer. I asked his daughter if he ever had a prostate biopsy and the answer was no. Every time he came into the emergency room, they kept saying that he is on bicalu tamide and he has been taking it. PAST MEDICAL HISTORY: In addition to what is mentioned above, the patient has a history of hyperten kori and has been on medications for it that include: 1. Hydralazine. 2. Amlodipine. 3. Clonidine .4 The patient has been on Pepcid. ALLERGIES: THE PATIENT HAS NO KNOWN DRUG ALLERGIES REVIEW OF SYSTEMS: Unremarkable. PHYSICAL EXAMINATION: GENERAL: Reveals an elderly male. He weighs 68.5 kilograms, 64 inches tall. VITAL SIGNS: Temperature is 98.0, pulse 63, respiration 18, blood pressure 132/66. HEENT: The head and neck are unremarkable. ABDOMEN: Soft. There is no abdominal mass palpable. He does have a line of pigmentation across hi s abdomen, probably from somehow poor hygiene probably. EXTERNAL GENITALIA: The penis does have an indwelling Nascimento catheter. The urethra has been eroded down from the glans to the mid penis and he does have a scab on the glans penis that is dry old skin which I removed. He also does have edema of the foreskin. Apparently this patient most likel y had paraphimosis and that was never reduced, so he had a chronic swelling and edema of the foreski n and over time that became thick skin. RECTAL: Examination revealed a soft, large prostate. EXTREMITIES: Reveal no edema. LABORATORY DATA: His CBC shows a white count of 4.6, hemoglobin 10.3, hematocrit 32.2, BUN 21, crea tinine 2.23. Sodium 140, potassium 3.9, chloride 110, CO2 26. Urine culture shows Staph aureus. MEDICATIONS: He is presently on: 1. Famotidine. 2. Hydralazine. 3. Clonidine. 4. Amlodipine. 5. Bicalutamide. 6. Carvedilol. 7. Ambien p.r.n. 8. Lovenox. 9. Zosyn. 10. Tylenol. 11. Vancomycin. 12. Morphine sulfate p.r.n. IMPRESSION: 1. Urinary tract infection. 2. 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 3. Paraphimosis chronic. The foreskin became very thick and swollen and cannot reduce it now. 4. The patient questioned whether he has prostate cancer since he has been on bicalutamide.. RECOMMENDATION: To continue his antibiotic, tape the Nascimento catheter on the abdomen. Elevate the sc rotum and penis on a towel all the time to allow the swelling to subside, also to prevent further er osion of the urethra. I ordered a PSA on him to see how much is his PSA now. Once the infection is treated, one may try again to remove the Nascimento catheter and see if he voids now that he has recover ed fairly well from his stroke. If he does not urinate, then we could always insert the Nascimento cathet er in while he is here in the hospital. I will follow his urological problem with you. I do thank you for allowing me to help in his care. Dictated By: GALE SAMUEL MD BB/NTS Conf#: [id number] DID#: [id number] CC: MONTY HOOD MD;*EndCC*
[2017-02-15] MEDS: PIPER-TAZO 2.25 GM (PMX) 50 ML IVPB SCH ×2 (05:47→14:13)
[2017-02-15 07:47] VITALS: BP 123/66; RESP 19
[2017-02-15] MEDS: ENOXAPARIN 30 MG/0.3 ML SYG SC SCH (09:41)
[2017-02-15] MEDS: AMLODIPINE 10 MG TAB PO SCH (09:42)
[2017-02-15] MEDS: BICALUTAMIDE 50 MG TAB PO SCH (09:43)
--- NOTE | 2017-02-15 12:00 | PN ---
DATE: 02/15/2017 SUBJECTIVE: Penile edema, urinary tract infection, with methicillin-resistant Staphylococcus aureus . History of urinary retention, bilateral hydronephrosis and elevated PSA. The patient has been on and there was no biopsy proven CA of the prostate, but he has had an elevated PSA before. The patient himself this morning feels comfortable and denies having any pain. OBJECTIVE FINDINGS: VITAL SIGNS: Temperature is 98.0, pulse is 55, respirations 19, blood pressure 123/66. ABDOMEN: Soft. GENITALIA: The penis still has some edema, but the scrotum is less edematous. The Nascimento is draining clear urine. LABORATORY DATA: His urine culture showed 100,000 colonies per mL of methicillin-resistant Staphylo coccus aureus. It is sensitive; however, to trimethoprim sulfa, to vancomycin, rifampin, and also to doxycycline. The patient received vancomycin IV and he did receive Zosyn, which was also stopped. The PSA is 2.1. IMPRESSION: Urinary tract infection, a history of urinary retention, bilateral hydronephrosis that was at the time thought to be most likely secondary to the stroke that. He also does have an enlarge d prostate, so he was started on Flomax yesterday. The plan is to treat his urinary tract infection , continue him on the Flomax, elevate the scrotum on a towel, tape the catheter on the abdomen, and after a few days will discontinue the Nascimento catheter and see if he is able to urinate on his own. Dictated By: GALE SHEN/THOMAS Conf#: [id number] DID#: [id number]
--- NOTE | 2017-02-15 16:14 | PN ---
Date/Time of Note Date/Time of Note DATE: 02/15/17 TIME: 16:12 Assessment/Plan VTE Prophylaxis VTE Prophylaxis Intervention: other Lines/Catheters IV Catheter Type (from Nrs): Saline Lock Urinary Cath still in place: Yes Reason Cath still needed: urinary retention Assessment/Plan Assessment/Plan 1. Urinary tract infection with hematuria. We will continue patient on broad spectrum antibiotics. Follow up on urine culture. - per Dr. Shah in urology - mitzi Dr. Glass in infectious disease consultation. 2. Chronic urinary retention. 3. Benign prostatic hypertrophy. 4. Hypertension. Continue patient on amlodipine. 5. Systolic congestive heart failure. Continue patient on Coreg. 6. History of stroke with right-sided weakness. 7. Acute kidney injury on chronic kidney disease. -monitor BUN and creatinine and continue IV fluids. 8. sequential compression device for deep venous thrombosis prophylaxis 9. Pepcid for peptic ulcer disease prophylaxis. Further recommendations based on clinical course. Plan of care discussed with Dr. Hood. Exam/Review of Systems Vital Signs Vitals Vital Signs Date Time Temp Pulse Resp B/P Pulse Ox O2 Delivery O2 Flow Rate FiO2 02/15/17 07:47 98.0 55 19 123/66 98 02/14/17 00:00 Room Air Intake and Output 02/14/17 02/14/17 02/15/17 15:00 23:00 07:00 Intake Total 50 ml 690 ml 410 ml Output Total 700 ml 600 ml Balance 50 ml -10 ml -190 ml Exam Constitutional: alert Psych: nl mood/affect Eyes: nl sclera ENMT: nl external ears & nose Neck: non-tender Respiratory: clear to auscultation Cardiovascular: nl pulses Gastrointestinal: non-tender, soft Musculoskeletal: muscle weakness Extremities: normal pulses Neurological: other Skin: other Lymph: nontender Results Result Diagram: 02/14/17 0500 02/14/17 0500 Results 24 hrs Laboratory Tests Test 02/15/17 05:10 Prostate Specific Antigen 2.1 Medications Medications Current Medications Ondansetron HCl (Zofran Inj) 4 mg Q6H PRN IV NAUSEA AND/OR VOMITING; Start 02/13 at 22:00 Acetaminophen (Tylenol Tab) 650 mg Q6H PRN PO PAIN LEVEL 1-3 OR FEVER; Start at 22:00 Morphine Sulfate (morphine) 2 mg Q4H PRN IV SEVERE PAIN LEVEL 7-10; Start at 22:00 Enoxaparin Sodium 30 mg 30 mg DAILY SC Last administered on 02/15/17 09:41; Admin Dose 30 MG; Start 02/14/17 at 09:00 Piperacillin Sod/ Tazobactam Sod (Zosyn 2.25gm/ 50ml (Pmx)) 50 ml @ 200 mls/hr Q8 IVPB Last administered on 02/15/17 14:13; Admin Dose 200 MLS/HR; Start at 06:00 Amlodipine Besylate (Norvasc) 10 mg DAILY PO Last administered on 02/15/17 09: 42; Admin Dose 10 MG; Start 02/14/17 at 11:30 Bicalutamide (Casodex) 50 mg DAILY PO Last administered on 02/15/17 09:43; Admin Dose 50 MG; Start 02/14/17 at 11:30 Carvedilol (Coreg) 12.5 mg BID PO Last administered on 02/15/17 09:42; Admin Dose 12.5 MG; Start 02/14/17 at 11:30 Clonidine (Catapres) 0.1 mg Q6 PO Last administered on 02/15/17 05:47; Admin Dose 0.1 MG; Start 02/14/17 at 12:00 Famotidine (Pepcid) 20 mg QHS PO Last administered on 02/14/17 21:25; Admin Dose 20 MG; Start 02/14/17 at 21:00 Hydralazine HCl (Apresoline) 25 mg TID PO Last administered on 02/15/17 14:12; Admin Dose 25 MG; Start 02/14/17 at 13:00 Zolpidem Tartrate (Ambien) 5 mg QHS PRN PO INSOMNIA; Start 02/14/17 at 11:00 Tamsulosin HCl (Flomax) 0.4 mg HS PO ; Start 02/15/17 at 21:00 Miscellaneous Information (*Rx Drug Level Order Reminder*) RANDOM VANCOMYCIN LEVEL ... ONCE ONCE XX ; Start 02/16/17 at 05:00; Stop 02/16/17 at 05:01 EVERARDO OLIVEROS February 15, 2017 16:14
[2017-02-15] MEDS: FAMOTIDINE 20 MG TAB PO SCH (20:18)
[2017-02-15] MEDS: TAMSULOSIN (SR) 0.4 MG CAP PO SCH (20:18)
[2017-02-15 22:25] VITALS: BP 139/66; RESP 18
[2017-02-16 00:41] VITALS: BP 128/61; PULSE 57
--- NOTE | 2017-02-16 03:01 | PN ---
DATE: SUBJECTIVE: No acute changes overnight. No fevers. The patient is awake, lying comfortably in bed . No labs this morning. MICROBIOLOGY: Urine culture growing MRSA. ANTIMICROBIALS: The patient is on: 1. Zosyn. 2. Vancomycin. PHYSICAL EXAMINATION: GENERAL: This is a well-developed reaction, fragile, elderly man who is awake, in no distress. HEENT: Head atraumatic, normocephalic. Sclerae anicteric. Buccal mucosa dry. NECK: Supple, trachea midline. CHEST: Rise symmetrical. Breath sounds diminished to bases. HEART: S1, S2. ABDOMEN: Soft. Bowel tones present. EXTREMITIES: Without cyanosis. ASSESSMENT: 1. Methicillin-resistant Staphylococcus aureus urinary tract infection. 2. Systemic inflammatory response syndrome. 3. Benign prostatic hypertrophy. 4. Anemia. 5. Acute kidney injury possible on chronic kidney disease. PLAN: The patient remains stable. We are going to discontinue Zosyn, continue vancomycin, follow u rology recommendations, monitor renal function closely. Dictated By: NAYELI CASSIDY SUPERVISOR RECLAMATION for CASE ALCARAZ/THOMAS Conf#: [id number] DID#: [id number]
[2017-02-16 06:01] VITALS: BP 128/66; PULSE 57
[2017-02-16 06:08] LABS: ADD SCAN DIFF NO
[2017-02-16 06:13] LABS: BASOPHILS % 0.8 % (0.0-2.0); EOSINOPHILS # 0.3 10^3/ul (0.0-0.5); EOSINOPHILS % 6.4 % (0.0-7.0); HEMATOCRIT 31.4 % (42.0-52.0); HEMOGLOBIN 10.2 g/dl (14.0-18.0); LYMPHOCYTES # 1.6 10^3/ul (0.8-2.9); LYMPHOCYTES % 32.5 % (15.0-51.0); MEAN CORPUSCULAR HEMOGLOBIN 30.1 pg (29.0-33.0); MEAN CORPUSCULAR HGB CONC 32.5 g/dl (32.0-37.0); MEAN CORPUSCULAR VOLUME 92.6 fl (82.0-101.0); MEAN PLATELET VOLUME 9.5 fl (7.4-10.4); MONOCYTE # 0.5 10^3/ul (0.3-0.9); MONOCYTES % 10.2 % (0.0-11.0); NEUTROPHIL # 2.5 10^3/ul (1.6-7.5); NEUTROPHILS % 49.9 % (39.0-77.0); PLATELET COUNT 319 10^3/UL (140-415); RED BLOOD COUNT 3.39 10^6/ul (4.70-6.10); RED CELL DISTRIBUTION WIDTH 11.7 % (11.5-14.5)
[2017-02-16 06:35] LABS: CREATININE 2.37 mg/dl (0.61-1.24)
[2017-02-16 06:36] LABS: CALCIUM 9.5 mg/dl (8.4-10.2)
[2017-02-16 08:15] VITALS: BP 139/68; RESP 18
[2017-02-16] MEDS: BICALUTAMIDE 50 MG TAB PO SCH (08:35)
[2017-02-16] MEDS: ENOXAPARIN 30 MG/0.3 ML SYG SC SCH (08:36)
[2017-02-16] MEDS: AMLODIPINE 10 MG TAB PO SCH (08:36)
[2017-02-16] MEDS ORDERED: VANCOMYCIN 1.25 GM in SOD CHLORIDE 0.9% 250 ML IVPB SCH (12:00)
--- NOTE | 2017-02-16 16:10 | CONS ---
Date/Time of Note Date/Time of Note DATE: 02/16/17 TIME: 16:09 Assessment/Plan Assessment/Plan Chief Complaint/Hosp Course SUBJECTIVE: No acute changes overnight. No fevers. The patient is awake, lying comfortably in bed. MICROBIOLOGY: Urine culture growing MRSA. ANTIMICROBIALS: Vancomycin. PHYSICAL EXAMINATION: GENERAL: This is a well-developed reaction, fragile, elderly man who is awake, in no distress. HEENT: Head atraumatic, normocephalic. Sclerae anicteric. Buccal mucosa dry. NECK: Supple, trachea midline. CHEST: Rise symmetrical. Breath sounds diminished to bases. HEART: S1, S2. ABDOMEN: Soft. Bowel tones present. EXTREMITIES: Without cyanosis. ASSESSMENT: 1. Methicillin-resistant Staphylococcus aureus urinary tract infection. 2. Systemic inflammatory response syndrome. 3. Benign prostatic hypertrophy. 4. Anemia. 5. Acute kidney injury possible on chronic kidney disease. PLAN: The patient remains stable. We are going to change abx to oral Doxycycline, follow urology recommendations [facility] staff Problems: Consultation Date/Type/Reason Admit Date/Time February 13, 2017 at 21:20 Initial Consult Date Type of Consultation: id Exam/Review of Systems Vital Signs Vitals Vital Signs Date Time Temp Pulse Resp B/P Pulse Ox O2 Delivery O2 Flow Rate FiO2 02/16/17 08:15 98.0 55 18 139/68 97 02/14/17 00:00 Room Air Intake and Output 02/15/17 02/15/17 02/16/17 15:00 23:00 07:00 Intake Total 200 ml 680 ml 220 ml Output Total 1500 ml 1450 ml Balance 200 ml -820 ml -1230 ml Results Result Diagram: 02/16/17 0511 02/16/17 0511 Results 24 hrs Laboratory Tests Test 02/16/17 05:11 White Blood Count 5.0 Red Blood Count 3.39 L Hemoglobin 10.2 L Hematocrit 31.4 L Mean Corpuscular Volume 92.6 Mean Corpuscular Hemoglobin 30.1 Mean Corpuscular Hemoglobin Concent 32.5 Red Cell Distribution Width 11.7 Platelet Count 319 Mean Platelet Volume 9.5 Neutrophils % 49.9 Lymphocytes % 32.5 Monocytes % 10.2 Eosinophils % 6.4 Basophils % 0.8 Nucleated Red Blood Cells % 0.0 Neutrophils # 2.5 Lymphocytes # 1.6 Monocytes # 0.5 Eosinophils # 0.3 Basophils # 0.0 Nucleated Red Blood Cells # 0.0 Sodium Level 141 Potassium Level 4.0 Chloride Level 105 Carbon Dioxide Level 25 Anion Gap 15 Blood Urea Nitrogen 28 H Creatinine 2.37 H Glucose Level 98 Calcium Level 9.5 Random Vancomycin Level 8.2 Medications Medications Current Medications Ondansetron HCl (Zofran Inj) 4 mg Q6H PRN IV NAUSEA AND/OR VOMITING; Start 02/13 at 22:00 Acetaminophen (Tylenol Tab) 650 mg Q6H PRN PO PAIN LEVEL 1-3 OR FEVER; Start at 22:00 Morphine Sulfate (morphine) 2 mg Q4H PRN IV SEVERE PAIN LEVEL 7-10; Start at 22:00 Enoxaparin Sodium (Lovenox) 30 mg DAILY SC Last administered on 02/16/17 08:36 ; Admin Dose 30 MG; Start 02/14/17 at 09:00 Amlodipine Besylate (Norvasc) 10 mg DAILY PO Last administered on 02/16/17 08: 36; Admin Dose 10 MG; Start 02/14/17 at 11:30 Bicalutamide (Casodex) 50 mg DAILY PO Last administered on 02/16/17 08:35; Admin Dose 50 MG; Start 02/14/17 at 11:30 Carvedilol (Coreg) 12.5 mg BID PO Last administered on 02/15/17 20:18; Admin Dose 12.5 MG; Start 02/14/17 at 11:30 Clonidine (Catapres) 0.1 mg Q6 PO Last administered on 02/16/17 12:12; Admin Dose 0.1 MG; Start 02/14/17 at 12:00 Famotidine (Pepcid) 20 mg QHS PO Last administered on 02/15/17 20:18; Admin Dose 20 MG; Start 02/14/17 at 21:00 Hydralazine HCl (Apresoline) 25 mg TID PO Last administered on 02/16/17 14:41; Admin Dose 25 MG; Start 02/14/17 at 13:00 Zolpidem Tartrate (Ambien) 5 mg QHS PRN PO INSOMNIA; Start 02/14/17 at 11:00 Tamsulosin HCl 0.4 mg 0.4 mg HS PO Last administered on 02/15/17 20:18; Admin Dose 0.4 MG; Start 02/15/17 at 21:00 Vancomycin HCl/ Sodium Chloride (Vancocin/NS) 250 ml @ 83.333 mls/ hr Q48H IVPB Last administered on 02/16/17 12:39; Admin Dose 83.333 MLS/HR; Start at 12:00 NAYELI CASSIDY NP February 16, 2017 16:10
[2017-02-16] MEDS: FAMOTIDINE 20 MG TAB PO SCH (20:42)
[2017-02-16] MEDS: DOXYCYCLINE 100 MG TAB PO SCH (20:42)
[2017-02-16] MEDS: TAMSULOSIN (SR) 0.4 MG CAP PO SCH (20:43)
[2017-02-16 21:19] VITALS: BP 125/58; RESP 20
--- NOTE | 2017-02-17 03:23 | PN ---
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 The patient has a history of urinary retention secondary to a stroke that he sustained last year. Also, he does have an enlargement of the prostate, but I do not think that is the only reason for his urinary retention. The patient also does have swelling of the foreskin because of what appears to be a paraphimosis that was not reduced in the past and then became thick foreskin. OBJECTIVE VITAL SIGNS: His temperature is 98.0, blood pressure 139/68, pulse is 55, respiration 18. GENERAL: The patient is comfortable. GENITOURINARY: The Nascimento catheter that he has is draining clear urine. He still has some swelling and edema of the penis. LABORATORY DATA: Urine culture did show MRSA, and he is on antibiotics for that. He has received v ancomycin and now is on doxycycline. The CBC shows a white count of 5.0, hemoglobin 10.2, hematocri t 31.4. BUN is 28, creatinine 2.37. Electrolytes: Sodium 141, potassium 105, CO2 of 25. IMPRESSION: 1. Neurogenic bladder. 2. Benign prostatic hypertrophy. 3. Urinary tract infection. 4. 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 PLAN: Continue the antibiotic and the Flomax. Then, we will discontinue the Nascimento catheter and see if he is able to urinate. Hopefully he does, and then he will not need an indwelling Nascimento cathete r, and he would have less risk of infections. Dictated By: GALE SHEN/THOMAS Conf#: [id number] DID#: [id number]
[2017-02-17 07:35] VITALS: BP 147/72; RESP 18
[2017-02-17] MEDS: AMLODIPINE 10 MG TAB PO SCH (08:57)
[2017-02-17] MEDS: DOXYCYCLINE 100 MG TAB PO SCH ×2 (08:57→21:37)
[2017-02-17] MEDS: ENOXAPARIN 30 MG/0.3 ML SYG SC SCH (08:59)
--- NOTE | 2017-02-17 12:38 | CONS ---
Date/Time of Note Date/Time of Note DATE: 02/17/17 TIME: 12:37 Assessment/Plan Assessment/Plan Chief Complaint/Hosp Course SUBJECTIVE: No acute changes overnight. No fevers. The patient is awake, lying comfortably in bed. MICROBIOLOGY: Urine culture growing MRSA. ANTIMICROBIALS: Doxycycline PHYSICAL EXAMINATION: GENERAL: This is a well-developed reaction, fragile, elderly man who is awake, in no distress. HEENT: Head atraumatic, normocephalic. Sclerae anicteric. Buccal mucosa dry. NECK: Supple, trachea midline. CHEST: Rise symmetrical. Breath sounds diminished to bases. HEART: S1, S2. ABDOMEN: Soft. Bowel tones present. EXTREMITIES: Without cyanosis. ASSESSMENT: 1. Methicillin-resistant Staphylococcus aureus urinary tract infection. 2. Systemic inflammatory response syndrome. 3. Benign prostatic hypertrophy. 4. Anemia. 5. Acute kidney injury possible on chronic kidney disease. PLAN: The patient remains stable. Continue abx, follow urology recommendations [facility] staff Problems: Consultation Date/Type/Reason Admit Date/Time February 13, 2017 at 21:20 Type of Consultation: id Exam/Review of Systems Vital Signs Vitals Vital Signs Date Time Temp Pulse Resp B/P Pulse Ox O2 Delivery O2 Flow Rate FiO2 02/17/17 07:35 98.1 54 18 147/72 95 02/14/17 00:00 Room Air Intake and Output 02/16/17 02/16/17 02/17/17 15:00 23:00 07:00 Intake Total 250 ml 460 ml Output Total 1350 ml Balance 250 ml -890 ml Results Result Diagram: 02/16/17 0511 02/16/17 0511 Medications Medications Current Medications Ondansetron HCl (Zofran Inj) 4 mg Q6H PRN IV NAUSEA AND/OR VOMITING; Start 02/13 at 22:00 Acetaminophen (Tylenol Tab) 650 mg Q6H PRN PO PAIN LEVEL 1-3 OR FEVER; Start at 22:00 Morphine Sulfate (morphine) 2 mg Q4H PRN IV SEVERE PAIN LEVEL 7-10; Start at 22:00 Enoxaparin Sodium (Lovenox) 30 mg DAILY SC Last administered on 02/17/17t 08:59 ; Admin Dose 30 MG; Start 02/14/17 at 09:00 Amlodipine Besylate (Norvasc) 10 mg DAILY PO Last administered on 02/17/17 08: 57; Admin Dose 10 MG; Start 02/14/17 at 11:30 Bicalutamide (Casodex) 50 mg DAILY PO Last administered on 02/16/17 08:35; Admin Dose 50 MG; Start 02/14/17 at 11:30 Carvedilol (Coreg) 12.5 mg BID PO Last administered on 02/17/17 08:57; Admin Dose 12.5 MG; Start 02/14/17 at 11:30 Clonidine (Catapres) 0.1 mg Q6 PO Last administered on 02/17/17 05:51; Admin Dose 0.1 MG; Start 02/14/17 at 12:00 Famotidine (Pepcid) 20 mg QHS PO Last administered on 02/16/17 20:42; Admin Dose 20 MG; Start 02/14/17 at 21:00 Hydralazine HCl (Apresoline) 25 mg TID PO Last administered on 02/17/17 08:58; Admin Dose 25 MG; Start 02/14/17 at 13:00 Zolpidem Tartrate (Ambien) 5 mg QHS PRN PO INSOMNIA; Start 02/14/17 at 11:00 Tamsulosin HCl (Flomax) 0.4 mg HS PO Last administered on 02/16/17 20:43; Admin Dose 0.4 MG; Start 02/15/17 at 21:00 Doxycycline Hyclate (Vibramycin) 100 mg BID PO Last administered on 02/17/17 08 :57; Admin Dose 100 MG; Start 02/16/17 at 21:00 NAYELI CASSIDY NP February 17, 2017 12:37
[2017-02-17] MEDS: BICALUTAMIDE 50 MG TAB PO SCH (12:50)
--- NOTE | 2017-02-17 14:51 | PN ---
Date/Time of Note Date/Time of Note DATE: 02/17/17 TIME: 14:46 Assessment/Plan VTE Prophylaxis VTE Prophylaxis Intervention: SCD's Lines/Catheters [facility] Saline Lock Urinary Cath still in place: Yes Reason Cath still needed: urinary retention Assessment/Plan Chief Complaint/Hosp Course ASSESSMENT AND PLAN: 1. MRSA urinary tract infection with hematuria. Dr. Glass is following in infectious disease consultation. Continue Vibramycin 2. Chronic urinary retention. Dr. Oneil is following in urology consultation 3. Benign prostatic hypertrophy. Continue Flomax. 4. Hypertension. Continue amlodipine. 5. Systolic congestive heart failure. Continue patient on Coreg. 6. History of stroke with right-sided weakness. 7. Acute kidney injury on chronic kidney disease. Continue to monitor BUN and creatinine. Continue sequential compression device for deep venous thrombosis prophylaxis and Pepcid for peptic ulcer disease prophylaxis. Further recommendations based on clinical course. Plan of care discussed with Dr. Hood. Problems: Subjective 24 Hr Interval Summary Free Text/Dictation Patient remains hemodynamically stable, good urine output via Nascimento. Exam/Review of Systems Vital Signs Vitals Vital Signs Date Time Temp Pulse Resp B/P Pulse Ox O2 Delivery O2 Flow Rate FiO2 02/17/17 07:35 98.1 54 18 147/72 95 02/14/17 00:00 Room Air Intake and Output 02/16/17 02/16/17 02/17/17 15:00 23:00 07:00 Intake Total 250 ml 460 ml Output Total 1350 ml Balance 250 ml -890 ml Exam GENERAL: Well-developed, well-nourished gentleman, currently alert, awake. HEENT: Head is atraumatic, normocephalic. PERRLA. NECK: Supple, no cervical lymphadenopathy, no thyromegaly. LUNGS: Clear bilaterally. There are no rhonchi, wheezes, rales noted. CARDIOVASCULAR: Normal S1, S2. No murmurs, gallops, clicks, rubs noted. ABDOMEN: Round, soft, nondistended, nontender. Bowel sounds present. GENITOURINARY: Patient has a Nascimento catheter with swelling and erythema of penis with discharge. EXTREMITIES: There is no edema, clubbing, cyanosis. Pulses equal bilaterally 2 +. SKIN: There is no rash, petechiae noted. NEUROLOGIC: Patient is awake, alert and oriented x3. The patient has right- sided weakness and slightly garbled speech, which is actually improved since last admission and patient also stated that he uses a walker at home, bilateral lower extremity weakness. Results Result Diagram: 02/16/17 0511 02/16/17 0511 Medications Medications Current Medications Ondansetron HCl (Zofran Inj) 4 mg Q6H PRN IV NAUSEA AND/OR VOMITING; Start 02/13 at 22:00 Acetaminophen (Tylenol Tab) 650 mg Q6H PRN PO PAIN LEVEL 1-3 OR FEVER; Start at 22:00 Morphine Sulfate (morphine) 2 mg Q4H PRN IV SEVERE PAIN LEVEL 7-10; Start at 22:00 Enoxaparin Sodium (Lovenox) 30 mg DAILY SC Last administered on 02/17/17 08:59 ; Admin Dose 30 MG; Start 02/14/17 at 09:00 Amlodipine Besylate (Norvasc) 10 mg DAILY PO Last administered on 02/17/17 08: 57; Admin Dose 10 MG; Start 02/14/17 at 11:30 Bicalutamide (Casodex) 50 mg DAILY PO Last administered on 02/17/17 12:50; Admin Dose 50 MG; Start 02/14/17 at 11:30 Carvedilol (Coreg) 12.5 mg BID PO Last administered on 02/17/17 08:57; Admin Dose 12.5 MG; Start 02/14/17 at 11:30 Clonidine (Catapres) 0.1 mg Q6 PO Last administered on 02/17/17 12:49; Admin Dose 0.1 MG; Start 02/14/17 at 12:00 Famotidine (Pepcid) 20 mg QHS PO Last administered on 02/16/17 20:42; Admin Dose 20 MG; Start 02/14/17 at 21:00 Hydralazine HCl (Apresoline) 25 mg TID PO Last administered on 02/17/17 12:49; Admin Dose 25 MG; Start 02/14/17 at 13:00 Zolpidem Tartrate (Ambien) 5 mg QHS PRN PO INSOMNIA; Start 02/14/17 at 11:00 Tamsulosin HCl (Flomax) 0.4 mg HS PO Last administered on 02/16/17 20:43; Admin Dose 0.4 MG; Start 02/15/17 at 21:00 Doxycycline Hyclate (Vibramycin) 100 mg BID PO Last administered on 02/17/17 08 :57; Admin Dose 100 MG; Start 02/16/17 at 21:00 DEBRA PASTRANA February 17, 2017 14:51
[2017-02-17 19:59] VITALS: BP 147/65; RESP 16
[2017-02-17] MEDS: TAMSULOSIN (SR) 0.4 MG CAP PO SCH (21:37)
[2017-02-17] MEDS: FAMOTIDINE 20 MG TAB PO SCH (21:38)
--- NOTE | 2017-02-18 03:21 | PN ---
DATE: 02/17/2017 SUBJECTIVE: Urinary retention and urinary tract infection and erosion of the penile urethra from ch ronic indwelling Nascimento catheter. The patient is feeling comfortable and denies having any pain. OBJECTIVE: VITAL SIGNS: His temperature is 98.1, pulse is 54, respirations 18, blood pressure 147/72. ABDOMEN: Soft. GENITOURINARY: The Nascimento catheter is draining clear urine. The penis has erosion of the urethra be cause of the chronic indwelling Nascimento catheter, and the patient does have a history of stroke back i n July or September of last year. The patient also does have an enlarged prostate. He is on doxy cycline for his MRSA and tamsulosin for his prostate. PLAN: Discontinue the Nascimento catheter at 6:00 a.m. tomorrow and check if he does void and check the volume voided and the postvoid residual, and if hopefully he will be able to urinate and doesn't nee d a catheter, then he may continue the tamsulosin. If, however, he goes into retention again, then he is going to need the catheter again, and that will be decided based on the volume voided and the postvoid residual. Dictated By: GALE SHEN/THOMAS Conf#: [id number] DID#: [id number]
[2017-02-18 06:30] LABS: ADD SCAN DIFF NO
[2017-02-18 06:31] LABS: BASOPHILS % 0.7 % (0.0-2.0); EOSINOPHILS # 0.3 10^3/ul (0.0-0.5); EOSINOPHILS % 5.6 % (0.0-7.0); HEMOGLOBIN 10.3 g/dl (14.0-18.0); LYMPHOCYTES # 1.5 10^3/ul (0.8-2.9); MEAN CORPUSCULAR HEMOGLOBIN 30.2 pg (29.0-33.0); MEAN CORPUSCULAR HGB CONC 32.2 g/dl (32.0-37.0); MEAN CORPUSCULAR VOLUME 93.8 fl (82.0-101.0); MEAN PLATELET VOLUME 9.3 fl (7.4-10.4); MONOCYTE # 0.5 10^3/ul (0.3-0.9); MONOCYTES % 11.6 % (0.0-11.0); NEUTROPHIL # 2.2 10^3/ul (1.6-7.5); NEUTROPHILS % 48.9 % (39.0-77.0); PLATELET COUNT 301 10^3/UL (140-415); RED BLOOD COUNT 3.41 10^6/ul (4.70-6.10); RED CELL DISTRIBUTION WIDTH 11.6 % (11.5-14.5); WHITE BLOOD COUNT 4.5 10^3/ul (4.8-10.8)
[2017-02-18 07:03] LABS: POTASSIUM 4.2 mmol/L (3.5-5.1)
[2017-02-18 07:06] LABS: CALCIUM 10.1 mg/dl (8.4-10.2); CREATININE 2.23 mg/dl (0.61-1.24)
[2017-02-18 07:39] VITALS: BP 142/67; RESP 16
[2017-02-18] MEDS: DOXYCYCLINE 100 MG TAB PO SCH ×2 (08:35→21:32)
[2017-02-18] MEDS: ENOXAPARIN 30 MG/0.3 ML SYG SC SCH (08:36)
[2017-02-18] MEDS: BICALUTAMIDE 50 MG TAB PO SCH (08:36)
[2017-02-18] MEDS: AMLODIPINE 10 MG TAB PO SCH (08:38)
--- NOTE | 2017-02-18 14:06 | CONS ---
Date/Time of Note Date/Time of Note DATE: 02/18/17 TIME: 14:05 Assessment/Plan Assessment/Plan Chief Complaint/Hosp Course SUBJECTIVE: No acute changes overnight. No fevers. The patient is awake, lying comfortably in bed. MICROBIOLOGY: Urine culture growing MRSA. ANTIMICROBIALS: Doxycycline PHYSICAL EXAMINATION: GENERAL: This is a well-developed reaction, fragile, elderly man who is awake, in no distress. HEENT: Head atraumatic, normocephalic. Sclerae anicteric. Buccal mucosa dry. NECK: Supple, trachea midline. CHEST: Rise symmetrical. Breath sounds diminished to bases. HEART: S1, S2. ABDOMEN: Soft. Bowel tones present. EXTREMITIES: Without cyanosis. ASSESSMENT: 1. Methicillin-resistant Staphylococcus aureus urinary tract infection. 2. Systemic inflammatory response syndrome. 3. Benign prostatic hypertrophy. 4. Anemia. 5. Acute kidney injury possible on chronic kidney disease. PLAN: The patient remains stable. Continue abx, follow urology recommendations , monitor PVR [facility] staff Problems: Consultation Date/Type/Reason Admit Date/Time February 13, 2017 at 21:20 Type of Consultation: id Exam/Review of Systems Vital Signs Vitals Vital Signs Date Time Temp Pulse Resp B/P Pulse Ox O2 Delivery O2 Flow Rate FiO2 02/18/17 07:39 98.2 58 16 142/67 99 Intake and Output 02/17/17 02/17/17 02/18/17 15:00 23:00 07:00 Intake Total 1560 ml 430 ml Output Total 1000 ml 1400 ml Balance 560 ml -970 ml Results Result Diagram: 02/18/17 0600 02/18/17 0600 Results 24 hrs Laboratory Tests Test 02/18/17 06:00 White Blood Count 4.5 L Red Blood Count 3.41 L Hemoglobin 10.3 L Hematocrit 32.0 L Mean Corpuscular Volume 93.8 Mean Corpuscular Hemoglobin 30.2 Mean Corpuscular Hemoglobin Concent 32.2 Red Cell Distribution Width 11.6 Platelet Count 301 Mean Platelet Volume 9.3 Neutrophils % 48.9 Lymphocytes % 33.0 Monocytes % 11.6 H Eosinophils % 5.6 Basophils % 0.7 Nucleated Red Blood Cells % 0.0 Neutrophils # 2.2 Lymphocytes # 1.5 Monocytes # 0.5 Eosinophils # 0.3 Basophils # 0.0 Nucleated Red Blood Cells # 0.0 Sodium Level 139 Potassium Level 4.2 Chloride Level 104 Carbon Dioxide Level 24 Anion Gap 15 Blood Urea Nitrogen 27 H Creatinine 2.23 H Glucose Level 101 Calcium Level 10.1 Medications Medications Current Medications Ondansetron HCl (Zofran Inj) 4 mg Q6H PRN IV NAUSEA AND/OR VOMITING; Start 02/13 at 22:00 Acetaminophen (Tylenol Tab) 650 mg Q6H PRN PO PAIN LEVEL 1-3 OR FEVER; Start at 22:00 Morphine Sulfate (morphine) 2 mg Q4H PRN IV SEVERE PAIN LEVEL 7-10; Start at 22:00 Enoxaparin Sodium (Lovenox) 30 mg DAILY SC Last administered on 02/18/17 08:36 ; Admin Dose 30 MG; Start 02/14/17 at 09:00 Amlodipine Besylate (Norvasc) 10 mg DAILY PO Last administered on 02/18/17 08: 38; Admin Dose 10 MG; Start 02/14/17 at 11:30 Bicalutamide (Casodex) 50 mg DAILY PO Last administered on 02/18/17 08:36; Admin Dose 50 MG; Start 02/14/17 at 11:30 Carvedilol (Coreg) 12.5 mg BID PO Last administered on 02/18/17 08:38; Admin Dose 12.5 MG; Start 02/14/17 at 11:30 Clonidine (Catapres) 0.1 mg Q6 PO Last administered on 02/18/17 12:02; Admin Dose 0.1 MG; Start 02/14/17 at 12:00 Famotidine (Pepcid) 20 mg QHS PO Last administered on 02/17/17 21:38; Admin Dose 20 MG; Start 02/14/17 at 21:00 Hydralazine HCl (Apresoline) 25 mg TID PO Last administered on 02/18/17 12:23; Admin Dose 25 MG; Start 02/14/17 at 13:00 Zolpidem Tartrate (Ambien) 5 mg QHS PRN PO INSOMNIA; Start 02/14/17 at 11:00 Tamsulosin HCl (Flomax) 0.4 mg HS PO Last administered on 02/17/17 21:37; Admin Dose 0.4 MG; Start 02/15/17 at 21:00 Doxycycline Hyclate (Vibramycin) 100 mg BID PO Last administered on 02/18/17t 08 :35; Admin Dose 100 MG; Start 02/16/17 at 21:00 NAYELI CASSIDY NP February 18, 2017 14:05
--- NOTE | 2017-02-18 19:41 | PN ---
Date/Time of Note Date/Time of Note DATE: 02/18/17 TIME: 19:39 Assessment/Plan VTE Prophylaxis VTE Prophylaxis Intervention: SCD's Lines/Catheters IV [facility]ter Type (from [facility] Saline Lock Urinary Cath still in place: No Assessment/Plan Chief Complaint/Hosp Course ASSESSMENT AND PLAN: 1. MRSA urinary tract infection with hematuria. Dr. Glass is following in infectious disease consultation. Continue Vibramycin 2. Chronic urinary retention. Dr. Oneil is following in urology consultation 3. Benign prostatic hypertrophy. Continue Flomax. 4. Hypertension. Continue amlodipine. 5. Systolic congestive heart failure. Continue patient on Coreg. 6. History of stroke with right-sided weakness. 7. Acute kidney injury on chronic kidney disease. Continue to monitor BUN and creatinine. Continue sequential compression device for deep venous thrombosis prophylaxis and Pepcid for peptic ulcer disease prophylaxis. Further recommendations based on clinical course. Plan of care discussed with Dr. Hood. Problems: Subjective 24 Hr Interval Summary Free Text/Dictation Nascimento catheter was DC'd, patient is able to void, continue to monitor postvoid residual, patient remained afebrile. Exam/Review of Systems Vital Signs Vitals Vital Signs Date Time Temp Pulse Resp B/P Pulse Ox O2 Delivery O2 Flow Rate FiO2 02/18/17 07:39 98.2 58 16 142/67 99 Intake and Output 02/17/17 02/17/17 02/18/17 15:00 23:00 07:00 Intake Total 1560 ml 430 ml Output Total 1000 ml 1400 ml Balance 560 ml -970 ml Exam GENERAL: Well-developed, well-nourished gentleman, currently alert, awake. HEENT: Head is atraumatic, normocephalic. PERRLA. NECK: Supple, no cervical lymphadenopathy, no thyromegaly. LUNGS: Clear bilaterally. There are no rhonchi, wheezes, rales noted. CARDIOVASCULAR: Normal S1, S2. No murmurs, gallops, clicks, rubs noted. ABDOMEN: Round, soft, nondistended, nontender. Bowel sounds present. EXTREMITIES: There is no edema, clubbing, cyanosis. Pulses equal bilaterally 2 +. SKIN: There is no rash, petechiae noted. NEUROLOGIC: Patient is awake, alert and oriented x3. The patient has right- sided weakness and slightly garbled speech, which is actually improved since last admission and patient also stated that he uses a walker at home, bilateral lower extremity weakness. Results Result Diagram: 02/18/17 0600 02/18/17 0600 Results 24 hrs Laboratory Tests Test 02/18/17 06:00 White Blood Count 4.5 L Red Blood Count 3.41 L Hemoglobin 10.3 L Hematocrit 32.0 L Mean Corpuscular Volume 93.8 Mean Corpuscular Hemoglobin 30.2 Mean Corpuscular Hemoglobin Concent 32.2 Red Cell Distribution Width 11.6 Platelet Count 301 Mean Platelet Volume 9.3 Neutrophils % 48.9 Lymphocytes % 33.0 Monocytes % 11.6 H Eosinophils % 5.6 Basophils % 0.7 Nucleated Red Blood Cells % 0.0 Neutrophils # 2.2 Lymphocytes # 1.5 Monocytes # 0.5 Eosinophils # 0.3 Basophils # 0.0 Nucleated Red Blood Cells # 0.0 Sodium Level 139 Potassium Level 4.2 Chloride Level 104 Carbon Dioxide Level 24 Anion Gap 15 Blood Urea Nitrogen 27 H Creatinine 2.23 H Glucose Level 101 Calcium Level 10.1 Medications Medications Current Medications Ondansetron HCl (Zofran Inj) 4 mg Q6H PRN IV NAUSEA AND/OR VOMITING; Start 02/13 at 22:00 Acetaminophen (Tylenol Tab) 650 mg Q6H PRN PO PAIN LEVEL 1-3 OR FEVER; Start at 22:00 Morphine Sulfate (morphine) 2 mg Q4H PRN IV SEVERE PAIN LEVEL 7-10; Start at 22:00 Enoxaparin Sodium (Lovenox) 30 mg DAILY SC Last administered on 02/18/17 08:36 ; Admin Dose 30 MG; Start 02/14/17 at 09:00 Amlodipine Besylate (Norvasc) 10 mg DAILY PO Last administered on 02/18/17 08: 38; Admin Dose 10 MG; Start 02/14/17 at 11:30 Bicalutamide (Casodex) 50 mg DAILY PO Last administered on 02/18/17 08:36; Admin Dose 50 MG; Start 02/14/17 at 11:30 Carvedilol (Coreg) 12.5 mg BID PO Last administered on 02/18/17 08:38; Admin Dose 12.5 MG; Start 02/14/17 at 11:30 Clonidine (Catapres) 0.1 mg Q6 PO Last administered on 02/18/17 18:41; Admin Dose 0.1 MG; Start 02/14/17 at 12:00 Famotidine (Pepcid) 20 mg QHS PO Last administered on 02/17/17 21:38; Admin Dose 20 MG; Start 02/14/17 at 21:00 Hydralazine HCl (Apresoline) 25 mg TID PO Last administered on 02/18/17 12:23; Admin Dose 25 MG; Start 02/14/17 at 13:00 Zolpidem Tartrate (Ambien) 5 mg QHS PRN PO INSOMNIA; Start 02/14/17 at 11:00 Tamsulosin HCl (Flomax) 0.4 mg HS PO Last administered on 02/17/17 21:37; Admin Dose 0.4 MG; Start 02/15/17 at 21:00 Doxycycline Hyclate (Vibramycin) 100 mg BID PO Last administered on 02/18/17 08 :35; Admin Dose 100 MG; Start 02/16/17 at 21:00 DEBRA PASTRANA February 18, 2017 19:41
[2017-02-18 19:58] VITALS: BP 152/67; RESP 16
[2017-02-18] MEDS: TAMSULOSIN (SR) 0.4 MG CAP PO SCH (21:32)
[2017-02-18] MEDS: FAMOTIDINE 20 MG TAB PO SCH (21:32)
--- NOTE | 2017-02-19 02:06 | PN ---
DATE: 02/18/2017 SUBJECTIVE: History of urinary retention and neurogenic bladder and urinary tract infection. The p mary did have an indwelling Nascimento catheter and he was treated for the infection, and also has an e rosion of the urethra from chronic indwelling Nascimento catheter. The Nascimento catheter was removed this m orning and patient has been feeling well, and he states that he has been voiding. OBJECTIVE: VITAL SIGNS: His temperature is 98.2, respirations 16, blood pressure 142/67 and the pulse is 58. ABDOMEN: Soft. The patient has voided about 750 mL during the day today; however, there is no dave rd of how much the postvoid residual was by the bladder scan as ordered. I did talk to his present nurse and she will do postvoid residual using the bladder scan during the night, and therefore we wi ll have a better idea whether he is emptying his bladder or not. In the meantime, he should be cont inued on the antibiotic, and on the tamsulosin. LABORATORY DATA: His CBC shows a white count of 4.5, hemoglobin 10.3, hematocrit 32.0, BUN is 27, c reatinine 2.23. Electrolytes are normal. IMPRESSION: History of urinary retention secondary to neurogenic bladder, secondary to stroke. The patient had a urinary tract infection and that was treated, and is still being treated. 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 PLAN: To continue the antibiotic, continue the Flomax. Check his voiding and his postvoid residual , and if the PVR is over 300, do straight cath on him, or if he does not void and the bladder volume is over 500, do a straight cath as well. Dictated By: GALE SHEN/THOMAS Conf#: [id number] DID#: [id number] CC: BEBE BOSCH MD;*EndCC*
[2017-02-19 06:57] LABS: CALCIUM 10.2 mg/dl (8.4-10.2); CREATININE 2.21 mg/dl (0.61-1.24); POTASSIUM 4.5 mmol/L (3.5-5.1)
[2017-02-19 08:05] VITALS: BP 135/65; RESP 18
[2017-02-19] MEDS: AMLODIPINE 10 MG TAB PO SCH (09:36)
[2017-02-19] MEDS: DOXYCYCLINE 100 MG TAB PO SCH ×2 (09:39→21:40)
[2017-02-19] MEDS: BICALUTAMIDE 50 MG TAB PO SCH (09:41)
[2017-02-19] MEDS: ENOXAPARIN 30 MG/0.3 ML SYG SC SCH (09:42)
--- NOTE | 2017-02-19 13:47 | CONS ---
Date/Time of Note Date/Time of Note DATE: 02/19/17 TIME: 13:46 Assessment/Plan Assessment/Plan Chief Complaint/Hosp Course SUBJECTIVE: No acute changes overnight. No fevers. The patient is alert, denies pain, nad. MICROBIOLOGY: Urine culture growing MRSA. ANTIMICROBIALS: Doxycycline PHYSICAL EXAMINATION: GENERAL: This is a well-developed reaction, fragile, elderly man who is awake, in no distress. HEENT: Head atraumatic, normocephalic. Sclerae anicteric. Buccal mucosa dry. NECK: Supple, trachea midline. CHEST: Rise symmetrical. Breath sounds diminished to bases. HEART: S1, S2. ABDOMEN: Soft. Bowel tones present. EXTREMITIES: Without cyanosis. ASSESSMENT: 1. Methicillin-resistant Staphylococcus aureus urinary tract infection. 2. Systemic inflammatory response syndrome. 3. Benign prostatic hypertrophy. 4. Anemia. 5. Acute kidney injury possible on chronic kidney disease. PLAN: The patient remains stable. Continue abx, follow urology recommendations , monitor [facility] staff Problems: Consultation Date/Type/Reason Admit Date/Time February 13, 2017 at 21:20 Type of Consultation: id Exam/Review of Systems Vital Signs Vitals Vital Signs Date Time Temp Pulse Resp B/P Pulse Ox O2 Delivery O2 Flow Rate FiO2 02/19/17 08:05 98.1 53 18 135/65 97 Intake and Output 02/18/17 02/18/17 02/19/17 15:00 23:00 07:00 Intake Total 1000 ml 500 ml Output Total 750 ml 725 ml Balance 250 ml -225 ml Results Result Diagram: 02/18/17 0600 02/19/17 0500 Results 24 hrs Laboratory Tests Test 02/19/17 05:00 Sodium Level 138 Potassium Level 4.5 Chloride Level 106 Carbon Dioxide Level 25 Anion Gap 12 Blood Urea Nitrogen 33 H Creatinine 2.21 H Glucose Level 104 Calcium Level 10.2 Medications Medications Current Medications Ondansetron HCl (Zofran Inj) 4 mg Q6H PRN IV NAUSEA AND/OR VOMITING; Start 02/13 at 22:00 Acetaminophen (Tylenol Tab) 650 mg Q6H PRN PO PAIN LEVEL 1-3 OR FEVER; Start at 22:00 Morphine Sulfate (morphine) 2 mg Q4H PRN IV SEVERE PAIN LEVEL 7-10; Start at 22:00 Enoxaparin Sodium (Lovenox) 30 mg DAILY SC Last administered on 02/19/17 09:42 ; Admin Dose 30 MG; Start 02/14/17 at 09:00 Amlodipine Besylate (Norvasc) 10 mg DAILY PO Last administered on 02/19/17 09: 36; Admin Dose 10 MG; Start 02/14/17 at 11:30 Bicalutamide (Casodex) 50 mg DAILY PO Last administered on 02/19/17 09:41; Admin Dose 50 MG; Start 02/14/17 at 11:30 Carvedilol (Coreg) 12.5 mg BID PO Last administered on 02/19/17 09:37; Admin Dose 12.5 MG; Start 02/14/17 at 11:30 Clonidine (Catapres) 0.1 mg Q6 PO Last administered on 02/19/17 11:10; Admin Dose 0.1 MG; Start 02/14/17 at 12:00 Famotidine (Pepcid) 20 mg QHS PO Last administered on 02/18/17 21:32; Admin Dose 20 MG; Start 02/14/17 at 21:00 Hydralazine HCl (Apresoline) 25 mg TID PO Last administered on 02/19/17 12:32 ; Admin Dose 25 MG; Start 02/14/17 at 13:00 Zolpidem Tartrate (Ambien) 5 mg QHS PRN PO INSOMNIA; Start 02/14/17 at 11:00 Tamsulosin HCl (Flomax) 0.4 mg HS PO Last administered on 02/18/17 21:32; Admin Dose 0.4 MG; Start 02/15/17 at 21:00 Doxycycline Hyclate (Vibramycin) 100 mg BID PO Last administered on 02/19/17 09:39; Admin Dose 100 MG; Start 02/16/17 at 21:00 NAYELI CASSIDY NP February 19, 2017 13:47
--- NOTE | 2017-02-19 18:06 | PN ---
Date/Time of Note Date/Time of Note DATE: 02/19/17 TIME: 18:02 Assessment/Plan VTE Prophylaxis VTE Prophylaxis Intervention: SCD's Lines/Catheters IV [facility]ter Type (from [facility] Saline Lock Urinary Cath still in place: Yes Reason Cath still needed: urinary retention Assessment/Plan Chief Complaint/Hosp Course ASSESSMENT AND PLAN: 1. MRSA urinary tract infection with hematuria. Dr. Glass is following in infectious disease consultation. Continue Vibramycin 2. Chronic urinary retention. Dr. Oneil is following in urology consultation 3. Benign prostatic hypertrophy. Continue Flomax. 4. Hypertension. Continue amlodipine. 5. Systolic congestive heart failure. Continue patient on Coreg. 6. History of stroke with right-sided weakness. 7. Acute kidney injury on chronic kidney disease. Continue to monitor BUN and creatinine. Continue sequential compression device for deep venous thrombosis prophylaxis and Pepcid for peptic ulcer disease prophylaxis. Further recommendations based on clinical course. Plan of care discussed with Dr. Hood. Problems: Subjective 24 Hr Interval Summary Free Text/Dictation No complaints, postvoid residual is less than 300 cc per nurse, however overall urinary output is still within normal limits, however decreased to compare when patient had a Nascimento, continue to monitor postvoid residual, pending renal and pelvic ultrasound. Exam/Review of Systems Vital Signs Vitals Vital Signs Date Time Temp Pulse Resp B/P Pulse Ox O2 Delivery O2 Flow Rate FiO2 02/19/17 08:05 98.1 53 18 135/65 97 Intake and Output 02/18/17 02/18/17 02/19/17 15:00 23:00 07:00 Intake Total 1000 ml 500 ml Output Total 750 ml 725 ml Balance 250 ml -225 ml Exam GENERAL: Well-developed, well-nourished gentleman, currently alert, awake. HEENT: Head is atraumatic, normocephalic. PERRLA. NECK: Supple, no cervical lymphadenopathy, no thyromegaly. LUNGS: Clear bilaterally. There are no rhonchi, wheezes, rales noted. CARDIOVASCULAR: Normal S1, S2. No murmurs, gallops, clicks, rubs noted. ABDOMEN: Round, soft, nondistended, nontender. Bowel sounds present. EXTREMITIES: There is no edema, clubbing, cyanosis. Pulses equal bilaterally 2 +. SKIN: There is no rash, petechiae noted. NEUROLOGIC: Patient is awake, alert and oriented x3. The patient has right- sided weakness and slightly garbled speech, which is actually improved since last admission and patient also stated that he uses a walker at home, bilateral lower extremity weakness. Results Result Diagram: 02/18/17 0600 02/19/17 0500 Results 24 hrs Laboratory Tests Test 02/19/17 05:00 Sodium Level 138 Potassium Level 4.5 Chloride Level 106 Carbon Dioxide Level 25 Anion Gap 12 Blood Urea Nitrogen 33 H Creatinine 2.21 H Glucose Level 104 Calcium Level 10.2 Medications Medications Current Medications Ondansetron HCl (Zofran Inj) 4 mg Q6H PRN IV NAUSEA AND/OR VOMITING; Start 02/13 at 22:00 Acetaminophen (Tylenol Tab) 650 mg Q6H PRN PO PAIN LEVEL 1-3 OR FEVER; Start at 22:00 Morphine Sulfate (morphine) 2 mg Q4H PRN IV SEVERE PAIN LEVEL 7-10; Start at 22:00 Enoxaparin Sodium (Lovenox) 30 mg DAILY SC Last administered on 02/19/17 09:42 ; Admin Dose 30 MG; Start 02/14/17 at 09:00 Amlodipine Besylate (Norvasc) 10 mg DAILY PO Last administered on 02/19/17 09: 36; Admin Dose 10 MG; Start 02/14/17 at 11:30 Bicalutamide (Casodex) 50 mg DAILY PO Last administered on 02/19/17 09:41; Admin Dose 50 MG; Start 02/14/17 at 11:30 Carvedilol (Coreg) 12.5 mg BID PO Last administered on 02/19/17 09:37; Admin Dose 12.5 MG; Start 02/14/17 at 11:30 Clonidine (Catapres) 0.1 mg Q6 PO Last administered on 02/19/17 17:21; Admin Dose 0.1 MG; Start 02/14/17 at 12:00 Famotidine (Pepcid) 20 mg QHS PO Last administered on 02/18/17 21:32; Admin Dose 20 MG; Start 02/14/17 at 21:00 Hydralazine HCl (Apresoline) 25 mg TID PO Last administered on 5/10/17at 12:32 ; Admin Dose 25 MG; Start 02/14/17 at 13:00 Zolpidem Tartrate (Ambien) 5 mg QHS PRN PO INSOMNIA; Start 02/14/17 at 11:00 Tamsulosin HCl (Flomax) 0.4 mg HS PO Last administered on 02/18/17 21:32; Admin Dose 0.4 MG; Start 02/15/17 at 21:00 Doxycycline Hyclate (Vibramycin) 100 mg BID PO Last administered on 02/19/17 09:39; Admin Dose 100 MG; Start 02/16/17 at 21:00 DEBRA PASTRANA February 19, 2017 18:06
--- NOTE | 2017-02-19 19:21 | RADRPT ---
PROCEDURE: Renal US. CLINICAL INDICATION: Renal dysfunction. TECHNIQUE: Multiple sonographic images of the kidneys and urinary bladder were obtained. The imag es were reviewed on a PACS workstation. COMPARISON: CT scan of the abdomen and pelvis dated 08/15/2016. FINDINGS: The right kidney measures 10.4 x 5.0 x 5.5 cm. The left kidney measures 11.7 x 5.8 x 4.5 cm. There are small benign bilateral renal cysts. There is a cyst with internal debris or a possible deven id mass in the upper right kidney measuring 2.1 x 2.2 x 2.4 cm. There is no hydronephrosis. There are possible small bilateral nonobstructing renal calculi. Renal parenchymal thickness is normal bilaterally. Both kidneys are hyperechoic consistent with medical renal disease. The perirenal regions are normal with no fluid collection or mass. The urinary bladder is unremarkable with no mass or calculus. Incidental note is made of a sludge ball in the gallbladder measuring 1.6 x 1.4 cm. IMPRESSION: 1. Small benign bilateral renal cysts. 2. Cyst with internal debris or possible solid mass in the upper right kidney measuring 2.1 x 2.2 x 2.4 cm. 3. Possible small bilateral nonobstructing renal calculi. 4. Bilateral hyperechoic kidneys consistent with medical renal disease. 5. Sludge ball in the gallbladder. 6. No hydronephrosis. 7. Otherwise unremarkable study. RPTAT: QQ .Luis Murrell MD, MD Date Time Electronically viewed and signed by .Luis Murrell MD, MD on 02/19/2017 19:20 .R/
--- NOTE | 2017-02-19 19:22 | RADRPT ---
PROCEDURE: US Bladder. CLINICAL INDICATION: Enlarged prostate. TECHNIQUE: Multiple sonographic of the bladder were obtained in the pre-void and postvoid phases. The images were reviewed on a PACS workstation. COMPARISON: No prior studies are available for comparison. FINDINGS: The bladder is normal. There is no calculus or mass. The pre-void volume is 162 cc. The post void volume is 44 cc. The prostate volume is 18 cc. IMPRESSION: 1. Postvoid bladder volume is 44 cc. 2. Prostate volume is 18 cc.. RPTAT: QQ .Luis Murrell MD, Date Time Electronically viewed and signed by .Luis Murrell MD, on 02/19/2017 19:22 .R/
--- NOTE | 2017-02-19 20:40 | PN ---
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 The patient had the Nascimento catheter removed yest erday, has been voiding, and at the present, he is feeling comfortable. He denies any pain. OBJECTIVE: VITAL SIGNS: His temperature is 98.1, pulse 53, respiration 18, blood pressure 135/65. ABDOMEN: Soft. There is no abdominal mass palpable. LABORATORY DATA: The CBC from yesterday shows a white count of 4.5, hemoglobin 10.3. The BUN is 33 , creatinine 2.21, unchanged from before. Electrolytes are normal. The nurses have been checking his postvoid residual. Yesterday the postvoid residual was high and t herefore that was concerning to me, and I was concerned about the accuracy of the bladder scanner. Therefore, I ordered a pelvic ultrasound for him today to check the pre and postvoid bladder volume and the prostate size as well as renal ultrasound to see if he has any hydronephrosis, as when he ca me in before in the last year with the urinary retention, he did have severe bilateral hydronephrosi s. The patient underwent the pelvic ultrasound and that showed a prevoid bladder volume of 162, the postvoid volume was 44 mL and the prostate size was about 18, which is normal size. Therefore, the patient is voiding and keeping a small postvoid residual, and therefore he does not need to have th e Nascimento catheter. Therefore we just shall continue him on the doxycycline antibiotic and the tamsul osin to help him urinate. Therefore, tomorrow he could go home and continue the tamsulosin. Dictated By: GALE SHEN/THOMAS Conf#: [id number] DID#: [id number] CC: BEBE BOSCH MD;*End*
[2017-02-19 21:00] VITALS: BP 137/67; RESP 20
[2017-02-19] MEDS: FAMOTIDINE 20 MG TAB PO SCH (21:40)
[2017-02-19] MEDS: TAMSULOSIN (SR) 0.4 MG CAP PO SCH (21:40)
[2017-02-20 05:32] LABS: ADD SCAN DIFF NO
[2017-02-20 05:40] LABS: BASOPHILS % 0.4 % (0.0-2.0); EOSINOPHILS # 0.3 10^3/ul (0.0-0.5); EOSINOPHILS % 6.8 % (0.0-7.0); HEMATOCRIT 32.4 % (42.0-52.0); HEMOGLOBIN 10.4 g/dl (14.0-18.0); LYMPHOCYTES # 1.6 10^3/ul (0.8-2.9); LYMPHOCYTES % 33.8 % (15.0-51.0); MEAN CORPUSCULAR HEMOGLOBIN 29.8 pg (29.0-33.0); MEAN CORPUSCULAR HGB CONC 32.1 g/dl (32.0-37.0); MEAN CORPUSCULAR VOLUME 92.8 fl (82.0-101.0); MEAN PLATELET VOLUME 9.5 fl (7.4-10.4); MONOCYTE # 0.6 10^3/ul (0.3-0.9); MONOCYTES % 12.2 % (0.0-11.0); NEUTROPHIL # 2.1 10^3/ul (1.6-7.5); NEUTROPHILS % 46.6 % (39.0-77.0); PLATELET COUNT 267 10^3/UL (140-415); RED BLOOD COUNT 3.49 10^6/ul (4.70-6.10); RED CELL DISTRIBUTION WIDTH 11.5 % (11.5-14.5); WHITE BLOOD COUNT 4.6 10^3/ul (4.8-10.8)
[2017-02-20 06:42] LABS: POTASSIUM 4.3 mmol/L (3.5-5.1)
[2017-02-20 06:45] LABS: CREATININE 2.16 mg/dl (0.61-1.24)
[2017-02-20 06:46] LABS: CALCIUM 10.1 mg/dl (8.4-10.2)
[2017-02-20 07:42] VITALS: BP 133/79; RESP 20
[2017-02-20] MEDS: AMLODIPINE 10 MG TAB PO SCH (08:39)
[2017-02-20] MEDS: BICALUTAMIDE 50 MG TAB PO SCH (08:39)
[2017-02-20] MEDS: DOXYCYCLINE 100 MG TAB PO SCH ×2 (08:39→20:31)
[2017-02-20] MEDS: ENOXAPARIN 30 MG/0.3 ML SYG SC SCH (08:41)
--- NOTE | 2017-02-20 13:58 | CONS ---
Date/Time of Note Date/Time of Note DATE: 02/20/17 TIME: 13:57 Assessment/Plan Assessment/Plan Chief Complaint/Hosp Course SUBJECTIVE: No acute changes overnight. No fevers. MICROBIOLOGY: Urine culture grew MRSA. ANTIMICROBIALS: Doxycycline PHYSICAL EXAMINATION: GENERAL: This is a well-developed reaction, fragile, elderly man who is awake, in no distress. HEENT: Head atraumatic, normocephalic. Sclerae anicteric. Buccal mucosa dry. NECK: Supple, trachea midline. CHEST: Rise symmetrical. Breath sounds diminished to bases. HEART: S1, S2. ABDOMEN: Soft. Bowel tones present. EXTREMITIES: Without cyanosis. ASSESSMENT: 1. Methicillin-resistant Staphylococcus aureus urinary tract infection. 2. Systemic inflammatory response syndrome. 3. Benign prostatic hypertrophy. 4. Anemia. 5. Acute kidney injury possible on chronic kidney disease. PLAN: The patient remains stable. Continue abx for couple more days, follow urology recommendations, monitor [facility] staff Problems: Consultation Date/Type/Reason Admit Date/Time February 13, 2017 at 21:20 Type of Consultation: id Exam/Review of Systems Vital Signs Vitals Vital Signs Date Time Temp Pulse Resp B/P Pulse Ox O2 Delivery O2 Flow Rate FiO2 02/20/17 07:42 98.1 70 20 133/79 97 Intake and Output 02/19/17 02/19/17 02/20/17 15:00 23:00 07:00 Intake Total 1100 ml 440 ml Output Total 825 ml 600 ml Balance 275 ml -160 ml Results Result Diagram: 02/20/17 0515 02/20/17 0515 Results 24 hrs Laboratory Tests Test 02/20/17 05:15 White Blood Count 4.6 L Red Blood Count 3.49 L Hemoglobin 10.4 L Hematocrit 32.4 L Mean Corpuscular Volume 92.8 Mean Corpuscular Hemoglobin 29.8 Mean Corpuscular Hemoglobin Concent 32.1 Red Cell Distribution Width 11.5 Platelet Count 267 Mean Platelet Volume 9.5 Neutrophils % 46.6 Lymphocytes % 33.8 Monocytes % 12.2 H Eosinophils % 6.8 Basophils % 0.4 Nucleated Red Blood Cells % 0.0 Neutrophils # 2.1 Lymphocytes # 1.6 Monocytes # 0.6 Eosinophils # 0.3 Basophils # 0.0 Nucleated Red Blood Cells # 0.0 Sodium Level 138 Potassium Level 4.3 Chloride Level 103 Carbon Dioxide Level 23 Anion Gap 16 Blood Urea Nitrogen 40 H Creatinine 2.16 H Glucose Level 107 Calcium Level 10.1 Medications Medications Current Medications Ondansetron HCl (Zofran Inj) 4 mg Q6H PRN IV NAUSEA AND/OR VOMITING; Start 02/13 at 22:00 Acetaminophen (Tylenol Tab) 650 mg Q6H PRN PO PAIN LEVEL 1-3 OR FEVER; Start at 22:00 Morphine Sulfate (morphine) 2 mg Q4H PRN IV SEVERE PAIN LEVEL 7-10; Start at 22:00 Enoxaparin Sodium (Lovenox) 30 mg DAILY SC Last administered on 02/20/17 08:41 ; Admin Dose 30 MG; Start 02/14/17 at 09:00 Amlodipine Besylate (Norvasc) 10 mg DAILY PO Last administered on 02/20/17 08: 39; Admin Dose 10 MG; Start 02/14/17 at 11:30 Bicalutamide (Casodex) 50 mg DAILY PO Last administered on 02/20/17 08:39; Admin Dose 50 MG; Start 02/14/17 at 11:30 Carvedilol (Coreg) 12.5 mg BID PO Last administered on 02/20/17 08:40; Admin Dose 12.5 MG; Start 02/14/17 at 11:30 Clonidine (Catapres) 0.1 mg Q6 PO Last administered on 02/20/17 12:21; Admin Dose 0.1 MG; Start 02/14/17 at 12:00 Famotidine (Pepcid) 20 mg QHS PO Last administered on 02/19/17 21:40; Admin Dose 20 MG; Start 02/14/17 at 21:00 Hydralazine HCl (Apresoline) 25 mg TID PO Last administered on 02/20/17 08:38 ; Admin Dose 25 MG; Start 02/14/17 at 13:00 Zolpidem Tartrate (Ambien) 5 mg QHS PRN PO INSOMNIA; Start 02/14/17 at 11:00 Tamsulosin HCl (Flomax) 0.4 mg HS PO Last administered on 02/19/17 21:40; Admin Dose 0.4 MG; Start 02/15/17 at 21:00 Doxycycline Hyclate (Vibramycin) 100 mg BID PO Last administered on 02/20/17t 08:39; Admin Dose 100 MG; Start 02/16/17 at 21:00 NAYELI CASSIDY NP February 20, 2017 13:58
--- NOTE | 2017-02-20 15:20 | PN ---
Date/Time of Note Date/Time of Note DATE: 02/20/17 TIME: 15:19 Assessment/Plan VTE Prophylaxis VTE Prophylaxis Intervention: other Lines/Catheters [facility] Type [facility]from [facility] Saline Lock Urinary Cath still in place: Yes Reason Cath still needed: urinary retention Assessment/Plan Assessment/Plan 1. MRSA urinary tract infection with hematuria. - per Dr. Glass is following in infectious disease consultation. Continue Vibramycin 2. Chronic urinary retention. - per Dr. Oneil is following in urology consultation 3. Benign prostatic hypertrophy. Continue Flomax. 4. Hypertension. Continue amlodipine. 5. Systolic congestive heart failure. Continue patient on Coreg. 6. History of stroke with right-sided weakness. 7. Acute kidney injury on chronic kidney disease. Continue to monitor BUN and creatinine. - per nephrology Continue sequential compression device for deep venous thrombosis prophylaxis and Pepcid for peptic ulcer disease prophylaxis. Further recommendations based on clinical course. Plan of care discussed with Dr. Hood. Subjective 24 Hr Interval Summary Free Text/Dictation resting in bed, nad, feels better, dw staff- no new issues reported Eyes: no complaints ENT: no complaints Respiratory: no complaints Cardiovascular: no complaints Gastrointestinal: no complaints Exam/Review of Systems Vital Signs Vitals Vital Signs Date Time Temp Pulse Resp B/P Pulse Ox O2 Delivery O2 Flow Rate FiO2 02/20/17 07:42 98.1 70 20 133/79 97 Intake and Output 02/19/17 02/19/17 02/20/17 15:00 23:00 07:00 Intake Total 1100 ml 440 ml Output Total 825 ml 600 ml Balance 275 ml -160 ml Exam Constitutional: alert, oriented Psych: nl mood/affect Head: normocephalic Eyes: nl sclera ENMT: nl external ears & nose Neck: non-tender Respiratory: clear to auscultation Cardiovascular: nl pulses Gastrointestinal: non-tender, soft Musculoskeletal: nl extremities to inspection Neurological: nl speech Skin: nl turgor Lymph: nontender Results Result Diagram: 02/20/17 0515 02/20/17 0515 Results 24 hrs Laboratory Tests Test 02/20/17 05:15 White Blood Count 4.6 L Red Blood Count 3.49 L Hemoglobin 10.4 L Hematocrit 32.4 L Mean Corpuscular Volume 92.8 Mean Corpuscular Hemoglobin 29.8 Mean Corpuscular Hemoglobin Concent 32.1 Red Cell Distribution Width 11.5 Platelet Count 267 Mean Platelet Volume 9.5 Neutrophils % 46.6 Lymphocytes % 33.8 Monocytes % 12.2 H Eosinophils % 6.8 Basophils % 0.4 Nucleated Red Blood Cells % 0.0 Neutrophils # 2.1 Lymphocytes # 1.6 Monocytes # 0.6 Eosinophils # 0.3 Basophils # 0.0 Nucleated Red Blood Cells # 0.0 Sodium Level 138 Potassium Level 4.3 Chloride Level 103 Carbon Dioxide Level 23 Anion Gap 16 Blood Urea Nitrogen 40 H Creatinine 2.16 H Glucose Level 107 Calcium Level 10.1 Medications Medications Current Medications Ondansetron HCl (Zofran Inj) 4 mg Q6H PRN IV NAUSEA AND/OR VOMITING; Start 02/13 at 22:00 Acetaminophen (Tylenol Tab) 650 mg Q6H PRN PO PAIN LEVEL 1-3 OR FEVER; Start at 22:00 Morphine Sulfate (morphine) 2 mg Q4H PRN IV SEVERE PAIN LEVEL 7-10; Start at 22:00 Enoxaparin Sodium (Lovenox) 30 mg DAILY SC Last administered on 02/20/17 08:41 ; Admin Dose 30 MG; Start 02/14/17 at 09:00 Amlodipine Besylate (Norvasc) 10 mg DAILY PO Last administered on 02/20/17 08: 39; Admin Dose 10 MG; Start 02/14/17 at 11:30 Bicalutamide (Casodex) 50 mg DAILY PO Last administered on 02/20/17 08:39; Admin Dose 50 MG; Start 02/14/17 at 11:30 Carvedilol (Coreg) 12.5 mg BID PO Last administered on 02/20/17 08:40; Admin Dose 12.5 MG; Start 02/14/17 at 11:30 Clonidine (Catapres) 0.1 mg Q6 PO Last administered on 02/20/17 12:21; Admin Dose 0.1 MG; Start 02/14/17 at 12:00 Famotidine (Pepcid) 20 mg QHS PO Last administered on 02/19/17 21:40; Admin Dose 20 MG; Start 02/14/17 at 21:00 Hydralazine HCl (Apresoline) 25 mg TID PO Last administered on 02/20/17 14:04 ; Admin Dose 25 MG; Start 02/14/17 at 13:00 Zolpidem Tartrate (Ambien) 5 mg QHS PRN PO INSOMNIA; Start 02/14/17 at 11:00 Tamsulosin HCl (Flomax) 0.4 mg HS PO Last administered on 02/19/17 21:40; Admin Dose 0.4 MG; Start 02/15/17 at 21:00 Doxycycline Hyclate (Vibramycin) 100 mg BID PO Last administered on 02/20/17 08:39; Admin Dose 100 MG; Start 02/16/17 at 21:00 EVERARDO OLIVEROS February 20, 2017 15:20
--- NOTE | 2017-02-20 18:07 | CONS ---
Date/Time of Note Date/Time of Note DATE: 02/20/17 TIME: 18:02 Assessment/Plan Assessment/Plan Additional Assessment/Plan 1.. MRSA urinary tract infection with hematuria. 2. Chronic urinary retention. 3. Benign prostatic hypertrophy. 4. Hypertension. 5. Systolic congestive heart failure. 6. History of stroke with right-sided weakness. 7. Most likely stable Chronic Kidney disease Stage IV HTN controlled Seen by Urology PVR Noted US reviewed, Chronic disease Stable renal function Consultation Date/Type/Reason Admit Date/Time February 13, 2017 at 21:20 Date of Consultation: February 20, 2017 Type of Consultation: Renal Reason for Consultation Jeana, CKD Referring Provider: EVERARDO OLIVEROS Eyes: no complaints ENT: no complaints Respiratory: no complaints Cardiovascular: no complaints Gastrointestinal: no complaints Psychological: nl mood/affect Past Surgical History Past Surgical Hx: other Social History Smoking Status: Former smoker Exam/Review of Systems Vital Signs Vitals Vital Signs Date Time Temp Pulse Resp B/P Pulse Ox O2 Delivery O2 Flow Rate FiO2 02/20/17 07:42 98.1 70 20 133/79 97 Intake and Output 02/19/17 02/19/17 02/20/17 15:00 23:00 07:00 Intake Total 1100 ml 440 ml Output Total 825 ml 600 ml Balance 275 ml -160 ml Exam Constitutional: No distress Psych: nl mood/affect Head: atraumatic, normocephalic Eyes: EOMI Neck: No jvd Respiratory: clear to auscultation, No diminished breath sounds, No labored breathing Cardiovascular: regular rate and rhythm, No edema Gastrointestinal: non-tender, soft, No rebound or guarding Neurological: nl mental status, No lethargic Skin: No diaphoresis, No rash or lesions Results Result Diagram: 02/20/1715 02/20/1715 Results 24 hrs Laboratory Tests Test 02/20/17 05:15 White Blood Count 4.6 L Red Blood Count 3.49 L Hemoglobin 10.4 L Hematocrit 32.4 L Mean Corpuscular Volume 92.8 Mean Corpuscular Hemoglobin 29.8 Mean Corpuscular Hemoglobin Concent 32.1 Red Cell Distribution Width 11.5 Platelet Count 267 Mean Platelet Volume 9.5 Neutrophils % 46.6 Lymphocytes % 33.8 Monocytes % 12.2 H Eosinophils % 6.8 Basophils % 0.4 Nucleated Red Blood Cells % 0.0 Neutrophils # 2.1 Lymphocytes # 1.6 Monocytes # 0.6 Eosinophils # 0.3 Basophils # 0.0 Nucleated Red Blood Cells # 0.0 Sodium Level 138 Potassium Level 4.3 Chloride Level 103 Carbon Dioxide Level 23 Anion Gap 16 Blood Urea Nitrogen 40 H Creatinine 2.16 H Glucose Level 107 Calcium Level 10.1 Medications Medications Current Medications Ondansetron HCl (Zofran Inj) 4 mg Q6H PRN IV NAUSEA AND/OR VOMITING; Start 02/13 at 22:00 Acetaminophen (Tylenol Tab) 650 mg Q6H PRN PO PAIN LEVEL 1-3 OR FEVER; Start at 22:00 Morphine Sulfate (morphine) 2 mg Q4H PRN IV SEVERE PAIN LEVEL 7-10; Start at 22:00 Enoxaparin Sodium (Lovenox) 30 mg DAILY SC Last administered on 02/20/17 08:41 ; Admin Dose 30 MG; Start 02/14/17 at 09:00 Amlodipine Besylate (Norvasc) 10 mg DAILY PO Last administered on 02/20/17 08: 39; Admin Dose 10 MG; Start 02/14/17 at 11:30 Bicalutamide (Casodex) 50 mg DAILY PO Last administered on 02/20/17 08:39; Admin Dose 50 MG; Start 02/14/17 at 11:30 Carvedilol (Coreg) 12.5 mg BID PO Last administered on 02/20/17 08:40; Admin Dose 12.5 MG; Start 02/14/17 at 11:30 Clonidine (Catapres) 0.1 mg Q6 PO Last administered on 02/20/17 17:32; Admin Dose 0.1 MG; Start 02/14/17 at 12:00 Famotidine (Pepcid) 20 mg QHS PO Last administered on 02/19/17 21:40; Admin Dose 20 MG; Start 02/14/17 at 21:00 Hydralazine HCl (Apresoline) 25 mg TID PO Last administered on 02/20/17 14:04 ; Admin Dose 25 MG; Start 02/14/17 at 13:00 Zolpidem Tartrate (Ambien) 5 mg QHS PRN PO INSOMNIA; Start 02/14/17 at 11:00 Tamsulosin HCl (Flomax) 0.4 mg HS PO Last administered on 02/19/17 21:40; Admin Dose 0.4 MG; Start 02/15/17 at 21:00 Doxycycline Hyclate (Vibramycin) 100 mg BID PO Last administered on 02/20/17 08:39; Admin Dose 100 MG; Start 02/16/17 at 21:00 Procedures Procedures PROCEDURE: Renal US. CLINICAL INDICATION: Renal dysfunction. TECHNIQUE: Multiple sonographic images of the kidneys and urinary bladder were obtained. The images were reviewed on a PACS workstation. COMPARISON: CT scan of the abdomen and pelvis dated 08/15/2016. FINDINGS: The right kidney measures 10.4 x 5.0 x 5.5 cm. The left kidney measures 11.7 x 5.8 x 4.5 cm. There are small benign bilateral renal cysts. There is a cyst with internal debris or a possible solid mass in the upper right kidney measuring 2.1 x 2.2 x 2.4 cm. There is no hydronephrosis. There are possible small bilateral nonobstructing renal calculi. Renal parenchymal thickness is normal bilaterally. Both kidneys are hyperechoic consistent with medical renal disease. The perirenal regions are normal with no fluid collection or mass. The urinary bladder is unremarkable with no mass or calculus. Incidental note is made of a sludge ball in the gallbladder measuring 1.6 x 1.4 cm. IMPRESSION: 1. Small benign bilateral renal cysts. 2. Cyst with internal debris or possible solid mass in the upper right kidney measuring 2.1 x 2.2 x 2.4 cm. 3. Possible small bilateral nonobstructing renal calculi. 4. Bilateral hyperechoic kidneys consistent with medical renal disease. 5. Sludge ball in the gallbladder. 6. No hydronephrosis. 7. Otherwise unremarkable study. RPTAT: QQ .Luis Murrell MD, Date Time Electronically viewed and signed by .Luis Murrell MD, on 02/19/2017 19:20 IMPRESSION: 1. Postvoid bladder volume is 44 cc. 2. Prostate volume is 18 cc.. RPTAT: QQ .Luis Murrell MD, MD Date Time OSMAR MIDDLETON MD February 20, 2017 18:06
[2017-02-20 19:56] VITALS: BP 121/67; RESP 18
[2017-02-20] MEDS: FAMOTIDINE 20 MG TAB PO SCH (20:31)
[2017-02-20] MEDS: TAMSULOSIN (SR) 0.4 MG CAP PO SCH (20:31)
--- NOTE | 2017-02-21 00:02 | PN ---
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 The patient has responded well to the antibiotic. Also, he was started on tamsulosin. He does have a history of urinary retention before and an enlarged prostate; however, the patient had a pelvic ultrasound done yesterday and the pelvic ultrasound showed that the prostate size is estimated at about 18ml which is normal size and the prevoid volume was 162 mL. Postvoid residual was 42 mL. Therefore, the patient is emptying his bladder reasonably well. The urine culture again did show initially MRSA in the urine; however, the urine culture was repeated 2 days later and it showed no growth after 48 hours, that is when he was on antibiotic and that probably is taking care of the problem. IMPRESSION: History of urinary retention which appeared to be resolving. The prostate is normal size. The retention that he has had in the past most likely secondary to his stroke from which he is recovering. Also the patient does have erosion of the distal urethra and that is from chronic indwelling Nascimento catheter. However, since the patient now is voiding well he would not need an indwelling Nascimento catheter and therefore the erosion should not increase as it stands today. If the patient is to be discharged home he could be discharged without a catheter and he has to continue the antibiotic for about 10 days. Dictated By: GALE SHEN/THOMAS Conf#: [id number] DID#: [id number] CC: BEBE BOSCH MD;*EndCC* MTDD
[2017-02-21 05:52] LABS: ADD SCAN DIFF NO
[2017-02-21 05:59] LABS: BASOPHILS % 0.7 % (0.0-2.0); EOSINOPHILS # 0.3 10^3/ul (0.0-0.5); EOSINOPHILS % 7.3 % (0.0-7.0); HEMATOCRIT 34.1 % (42.0-52.0); HEMOGLOBIN 10.7 g/dl (14.0-18.0); LYMPHOCYTES # 1.4 10^3/ul (0.8-2.9); MEAN CORPUSCULAR HEMOGLOBIN 29.1 pg (29.0-33.0); MEAN CORPUSCULAR HGB CONC 31.4 g/dl (32.0-37.0); MEAN CORPUSCULAR VOLUME 92.7 fl (82.0-101.0); MEAN PLATELET VOLUME 9.7 fl (7.4-10.4); MONOCYTE # 0.6 10^3/ul (0.3-0.9); NEUTROPHILS % 45.8 % (39.0-77.0); PLATELET COUNT 295 10^3/UL (140-415); RED BLOOD COUNT 3.68 10^6/ul (4.70-6.10); RED CELL DISTRIBUTION WIDTH 11.6 % (11.5-14.5); WHITE BLOOD COUNT 4.4 10^3/ul (4.8-10.8)
[2017-02-21 07:02] LABS: CALCIUM 10.1 mg/dl (8.4-10.2); CREATININE 2.23 mg/dl (0.61-1.24); POTASSIUM 4.6 mmol/L (3.5-5.1)
[2017-02-21 08:24] VITALS: BP 143/74; RESP 17
[2017-02-21] MEDS: DOXYCYCLINE 100 MG TAB PO SCH (08:47)
[2017-02-21] MEDS: AMLODIPINE 10 MG TAB PO SCH (08:48)
[2017-02-21] MEDS: ENOXAPARIN 30 MG/0.3 ML SYG SC SCH (08:50)
[2017-02-21] MEDS: BICALUTAMIDE 50 MG TAB PO SCH (08:52)
--- NOTE | 2017-02-21 14:31 | CONS ---
Date/Time of Note Date/Time of Note DATE: 02/21/17 TIME: 14:30 Assessment/Plan Assessment/Plan Chief Complaint/Hosp Course SUBJECTIVE: No acute changes overnight. Awake, denies pain, nad. MICROBIOLOGY: Urine culture grew MRSA. ANTIMICROBIALS: Doxycycline PHYSICAL EXAMINATION: GENERAL: This is a well-developed reaction, fragile, elderly man who is awake, in no distress. HEENT: Head atraumatic, normocephalic. Sclerae anicteric. Buccal mucosa dry. NECK: Supple, trachea midline. CHEST: Rise symmetrical. Breath sounds diminished to bases. HEART: S1, S2. ABDOMEN: Soft. Bowel tones present. EXTREMITIES: Without cyanosis. ASSESSMENT: 1. Methicillin-resistant Staphylococcus aureus urinary tract infection. 2. Systemic inflammatory response syndrome. 3. Benign prostatic hypertrophy. 4. Anemia. 5. Acute kidney injury possible on chronic kidney disease. PLAN: The patient remains stable. Completing abx, dc isolation [facility] staff Problems: Consultation Date/Type/Reason Admit Date/Time February 13, 2017 at 21:20 Type of Consultation: ID Referring Provider: EVERARDO OLIVEROS Exam/Review of Systems Vital Signs Vitals Vital Signs Date Time Temp Pulse Resp B/P Pulse Ox O2 Delivery O2 Flow Rate FiO2 02/21/17 08:24 98.1 75 17 143/74 98 Intake and Output 02/20/17 02/20/17 02/21/17 15:00 23:00 07:00 Intake Total 1540 ml 100 ml Output Total 100 ml 260 ml 500 ml Balance -100 ml 1280 ml -400 ml Results Result Diagram: 02/21/17 0505 02/21/17 0505 Results 24 hrs Laboratory Tests Test 02/21/17 05:05 White Blood Count 4.4 L Red Blood Count 3.68 L Hemoglobin 10.7 L Hematocrit 34.1 L Mean Corpuscular Volume 92.7 Mean Corpuscular Hemoglobin 29.1 Mean Corpuscular Hemoglobin Concent 31.4 L Red Cell Distribution Width 11.6 Platelet Count 295 Mean Platelet Volume 9.7 Neutrophils % 45.8 Lymphocytes % 33.0 Monocytes % 13.0 H Eosinophils % 7.3 H Basophils % 0.7 Nucleated Red Blood Cells % 0.0 Neutrophils # 2.0 Lymphocytes # 1.4 Monocytes # 0.6 Eosinophils # 0.3 Basophils # 0.0 Nucleated Red Blood Cells # 0.0 Sodium Level 134 L Potassium Level 4.6 Chloride Level 104 Carbon Dioxide Level 22 Anion Gap 13 Blood Urea Nitrogen 42 H Creatinine 2.23 H Glucose Level 108 Calcium Level 10.1 Medications Medications Current Medications Ondansetron HCl (Zofran Inj) 4 mg Q6H PRN IV NAUSEA AND/OR VOMITING; Start 02/13 at 22:00 Acetaminophen (Tylenol Tab) 650 mg Q6H PRN PO PAIN LEVEL 1-3 OR FEVER; Start at 22:00 Morphine Sulfate (morphine) 2 mg Q4H PRN IV SEVERE PAIN LEVEL 7-10; Start at 22:00 Enoxaparin Sodium (Lovenox) 30 mg DAILY SC Last administered on 02/21/17 08:50 ; Admin Dose 30 MG; Start 02/14/17 at 09:00 Amlodipine Besylate (Norvasc) 10 mg DAILY PO Last administered on 02/21/17 08: 48; Admin Dose 10 MG; Start 02/14/17 at 11:30 Bicalutamide (Casodex) 50 mg DAILY PO Last administered on 02/21/17 08:52; Admin Dose 50 MG; Start 02/14/17 at 11:30 Carvedilol (Coreg) 12.5 mg BID PO Last administered on 02/21/17 08:49; Admin Dose 12.5 MG; Start 02/14/17 at 11:30 Clonidine (Catapres) 0.1 mg Q6 PO Last administered on 02/21/17 12:28; Admin Dose 0.1 MG; Start 02/14/17 at 12:00 Famotidine (Pepcid) 20 mg QHS PO Last administered on 02/20/17 20:31; Admin Dose 20 MG; Start 02/14/17 at 21:00 Hydralazine HCl (Apresoline) 25 mg TID PO Last administered on 02/21/17 14:20 ; Admin Dose 25 MG; Start 02/14/17 at 13:00 Zolpidem Tartrate (Ambien) 5 mg QHS PRN PO INSOMNIA; Start 02/14/17 at 11:00 Tamsulosin HCl (Flomax) 0.4 mg HS PO Last administered on 02/20/17 20:31; Admin Dose 0.4 MG; Start 02/15/17 at 21:00 Doxycycline Hyclate (Vibramycin) 100 mg BID PO Last administered on 02/21/17t 08:47; Admin Dose 100 MG; Start 02/16/17 at 21:00 NAYELI CASSIDY NP February 21, 2017 14:30
--- NOTE | 2017-02-21 15:47 | CONS ---
Date/Time of Note Date/Time of Note DATE: 02/21/17 TIME: 15:47 Assessment/Plan Assessment/Plan Additional Assessment/Plan 1.. MRSA urinary tract infection with hematuria. 2. Chronic urinary retention. 3. Benign prostatic hypertrophy. 4. Hypertension. 5. Systolic congestive heart failure. 6. History of stroke with right-sided weakness. 7. Most likely stable Chronic Kidney disease Stage IV HTN controlled Seen by Urology PVR Noted US reviewed, Chronic disease Stable renal function Ok for DC from renal standpoint Consultation Date/Type/Reason Admit Date/Time February 13, 2017 at 21:20 Initial Consult Date 02/20/17 Type of Consultation: Renal Referring Provider: EVERARDO OLIVEROS Exam/Review of Systems Vital Signs Vitals Vital Signs Date Time Temp Pulse Resp B/P Pulse Ox O2 Delivery O2 Flow Rate FiO2 02/21/17 08:24 98.1 75 17 143/74 98 Intake and Output 02/20/17 02/20/17 02/21/17 15:00 23:00 07:00 Intake Total 1540 ml 100 ml Output Total 100 ml 260 ml 500 ml Balance -100 ml 1280 ml -400 ml Exam Constitutional: No distress Respiratory: No labored breathing Neurological: No lethargic Skin: No diaphoresis Results Result Diagram: 02/21/17 0505 02/21/17 0505 Results 24 hrs Laboratory Tests Test 02/21/17 05:05 White Blood Count 4.4 L Red Blood Count 3.68 L Hemoglobin 10.7 L Hematocrit 34.1 L Mean Corpuscular Volume 92.7 Mean Corpuscular Hemoglobin 29.1 Mean Corpuscular Hemoglobin Concent 31.4 L Red Cell Distribution Width 11.6 Platelet Count 295 Mean Platelet Volume 9.7 Neutrophils % 45.8 Lymphocytes % 33.0 Monocytes % 13.0 H Eosinophils % 7.3 H Basophils % 0.7 Nucleated Red Blood Cells % 0.0 Neutrophils # 2.0 Lymphocytes # 1.4 Monocytes # 0.6 Eosinophils # 0.3 Basophils # 0.0 Nucleated Red Blood Cells # 0.0 Sodium Level 134 L Potassium Level 4.6 Chloride Level 104 Carbon Dioxide Level 22 Anion Gap 13 Blood Urea Nitrogen 42 H Creatinine 2.23 H Glucose Level 108 Calcium Level 10.1 Medications Medications Current Medications Ondansetron HCl (Zofran Inj) 4 mg Q6H PRN IV NAUSEA AND/OR VOMITING; Start 02/13 at 22:00 Acetaminophen (Tylenol Tab) 650 mg Q6H PRN PO PAIN LEVEL 1-3 OR FEVER; Start at 22:00 Morphine Sulfate (morphine) 2 mg Q4H PRN IV SEVERE PAIN LEVEL 7-10; Start at 22:00 Enoxaparin Sodium (Lovenox) 30 mg DAILY SC Last administered on 02/21/17 08:50 ; Admin Dose 30 MG; Start 02/14/17 at 09:00 Amlodipine Besylate (Norvasc) 10 mg DAILY PO Last administered on 02/21/17 08: 48; Admin Dose 10 MG; Start 02/14/17 at 11:30 Bicalutamide (Casodex) 50 mg DAILY PO Last administered on 02/21/17 08:52; Admin Dose 50 MG; Start 02/14/17 at 11:30 Carvedilol (Coreg) 12.5 mg BID PO Last administered on 02/21/17 08:49; Admin Dose 12.5 MG; Start 02/14/17 at 11:30 Clonidine (Catapres) 0.1 mg Q6 PO Last administered on 02/21/17 12:28; Admin Dose 0.1 MG; Start 02/14/17 at 12:00 Famotidine (Pepcid) 20 mg QHS PO Last administered on 02/20/17 20:31; Admin Dose 20 MG; Start 02/14/17 at 21:00 Hydralazine HCl (Apresoline) 25 mg TID PO Last administered on 02/21/17 14:20 ; Admin Dose 25 MG; Start 02/14/17 at 13:00 Zolpidem Tartrate (Ambien) 5 mg QHS PRN PO INSOMNIA; Start 02/14/17 at 11:00 Tamsulosin HCl (Flomax) 0.4 mg HS PO Last administered on 02/20/17 20:31; Admin Dose 0.4 MG; Start 02/15/17 at 21:00 Doxycycline Hyclate (Vibramycin) 100 mg BID PO Last administered on 02/21/17 08:47; Admin Dose 100 MG; Start 02/16/17 at 21:00 OSMAR MIDDLETON MD February 21, 2017 15:47
--- NOTE | 2017-02-21 16:00 | PN ---
DATE: 02/21/2017 SUBJECTIVE: History of urinary retention. The patient is voiding and he is comfortable and denies having any pain. The Nascimento catheter was removed yesterday and he has been voiding well and his post void residual has not been significant to where he needs Nascimento catheter. OBJECTIVE VITAL SIGNS: His temperature is 98.1, respirations 17, blood pressure 143/74, pulse is 75. ABDOMEN: Soft. GENITOURINARY: The external genitalia. He does have erosion of his urethra from prior longstanding chronic indwelling Nascimento catheter and he has some edema of the foreskin from the paraphimosis that he has had before. The patient has been urinating and he voided 200 mL, PVR was 42. He voided 100 mL and PVR was 34 and therefore he is voiding well. LABORATORY DATA: His CBC shows a white count of 4.4, hemoglobin 10.7, hematocrit 34.1, platelet cou nt 295,000. BUN is 42, creatinine 2.23, sodium 134, potassium 4.6, chloride 104, CO2 of 22. The [facility] urine culture from 02/15/2017 showed no growth in 48 hours. The patient initially did have MRSA in his urine and he was treated for that. IMPRESSION: Urinary retention that has resolved. The patient may be discharged from a urological s [facility] and he could continue the tamsulosin at home and he could be followed up in the office in about 2 to 3 weeks. Dictated By: GALE SHEN/THOMAS Conf#: [id number] DID#: [id number]
[2017-02-21] MEDS ORDERED: TAMS-14 PO (17:39)
[2017-02-21] MEDS ORDERED: DOXY100T2 PO (17:39)
[2017-02-21 20:06] VITALS: BP 126/68; RESP 18
--- NOTE | 2017-02-23 23:44 | DS ---
DATE OF ADMISSION: 02/13/2017 DATE OF DISCHARGE: 02/21/2017 FINAL DIAGNOSES: 1. Methicillin-resistant Staphylococcus aureus urinary tract infection with hematuria. 2. Chronic urinary retention. 3. Benign prostatic hypertrophy. 4. Hypertension. 5. Systolic congestive heart failure. 6. History of stroke with right-sided weakness. 7. Acute kidney injury on chronic kidney disease. BRIEF HISTORY: The patient is an 86-year-old gentleman known to [facility] from previous admission . The patient with history of stroke with right-sided weakness and history of previous stroke, gait instability, BPH, chronic urinary retention with Nascimento catheter and chronic kidney disease and syst olic congestive heart failure, hyperlipidemia, hypertension and COPD. [facility] from penis and malodors. The patient had chronic Nascimento catheter. Th e patient was evaluated in emergency room and started on broad spectrum antibiotics for urinary trac t infection that diagnosed on urinalysis, and the patient was admitted for further evaluation and ma nagement. HOSPITAL COURSE: The patient's urinate culture grew MRSA, and patient was continued on vancomycin. The patient was evaluated and followed by Dr. Glass in infectious disease consultation. The patie nt was also evaluated by Dr. Shah in urology consultation. The patient's urinary infection has g radually resolved. The patient has completed the treatment. The patient was also followed by Dr. Yue rene and Dr. Vieira in nephrology consultation. BUN and creatinine were monitored and were at the pa tient's baseline, creatinine about 2.2. The patient was followed by urologist, Dr. Shah, and pat ient was continued on Flomax, and after urinary infection result, patient's Nascimento catheter was remov ed, and the patient was able to void. Postvoid residual was closely monitored, and patient underwen t pelvic ultrasound, and postvoid bladder volume was 44 mL which is most consistent with nursing mon itoring, and patient's condition improved and patient was discharged home. CONDITION ON DISCHARGE: Hemodynamically stable. ACTIVITY: As patient tolerates. DIET: Two gram sodium, low-fat, low-cholesterol diet. MEDICATION ON DISCHARGE: The patient was given prescription for Flomax, given prescription for doxy cycline to complete the treatment for his urinary tract infection for 2 more days. The patient is to continue on: 1. Amlodipine. 2. Bicalutamide. 3. Carvedilol. 4. Clonidine. 5. Pepcid. 6. Hydralazine. 7. Ambien p.r.n. The patient is instructed to follow with primary care physician and to follow up with Dr. Shah in 1 to 2 weeks. Interdisciplinary plan of care was established for this patient. Plan of care was discussed with Dr Angela Lennon. Dictated By: DEBRA PASTRANA MANAGER TRANSPORT for MONTY LENNON MD SR/NTS Conf#: [id number] DID#: [id number]
== END 2017-02-21 21:33 | disposition home or self-care (01) | DRG 699 ==
LOC: E/R 13:26 → PP2 21:20
PROVIDERS: ADMIT Internal Medicine; ATTEND Internal Medicine
DX: T83.511A Infection and inflammatory reaction due to indwelling urethral catheter, initial encounter (principal); N17.9 Acute kidney failure, unspecified; I69.951 Hemiplegia and hemiparesis following unspecified cerebrovascular disease affecting right dominant side; I13.0 Hypertensive heart and chronic kidney disease with heart failure and stage 1 through stage 4 chronic kidney disease, or unspecified chronic kidney disease; I50.30 Unspecified diastolic (congestive) heart failure; N13.30 Unspecified hydronephrosis; N39.0 Urinary tract infection, site not specified; N48.29 Other inflammatory disorders of penis; Q64.0 Epispadias; R31.9 Hematuria, unspecified; R33.8 Other retention of urine; N18.9 Chronic kidney disease, unspecified; E78.5 Hyperlipidemia, unspecified; J44.9 Chronic obstructive pulmonary disease, unspecified; I69.922 Dysarthria following unspecified cerebrovascular disease; Q54.1 Hypospadias, penile; N47.2 Paraphimosis; B95.62 Methicillin resistant Staphylococcus aureus infection as the cause of diseases classified elsewhere; I69.998 Other sequelae following unspecified cerebrovascular disease; N31.9 Neuromuscular dysfunction of bladder, unspecified
CPT/HCPCS: 76775; 76856; 80048; 80053; 80202; 81001; 81003; 84153; 84154; 85025; 87086; 96365; 96375; J1650; J2405; J2543; J3370; J7030; J7050

== ENCOUNTER 2018-08-16 13:27 | Inpatient (IN) | END 2018-09-13 16:15 | disposition home or self-care (01) | DRG 988 ==

== ENCOUNTER 2019-03-17 12:38 | Inpatient (IN) | payer BC ==
[~2019-03-17] VITALS: Ht 170.2 cm; Wt 79.0 kg
[~2019-03-17 12:38] MED LIST changes: +ASPI-799 PO; -BICA50TA4 PO; -CEPH-443 PO; -CLON-379 PO; -FAMO20TA18 PO; +FER325 PO; +GABA-526 PO; -HYDR-3671 PO; +METF850T13 PO; +SIMV20TA2 PO; +TAMS0.4C2 PO; -ZOLP5TAB7 PO
[2019-03-17] MEDS ORDERED: FER325 PO (17:25)
[2019-03-17] MEDS ORDERED: AMLO-147 PO (17:25)
[2019-03-17] MEDS ORDERED: METF850T13 PO (17:26)
[2019-03-17] MEDS ORDERED: CARV12.579 PO (17:26)
[2019-03-17] MEDS ORDERED: TAMS-14 PO (17:26)
[2019-03-17] MEDS ORDERED: ASPI325T32 PO (17:27)
[2019-03-17] MEDS ORDERED: SIMV20TA PO (17:28)
[2019-03-17] MEDS ORDERED: ONDANSETRON 4 MG INJ IV PRN (17:30)
[2019-03-17] MEDS ORDERED: ACETAMINOPHEN 325 MG TAB PO PRN (17:30)
--- NOTE | 2019-03-17 17:56 | ERD ---
ER Documentation Chief Complaint Chief Complaint PAIN @ LEFT CHEST AREA HPI 88-year-old male presenting with 2 weeks of intermittent chest pain associated with shortness of breath. He saw his primary care doctor today who sent him i nto the ER for evaluation. Patient has been complaining about chest pain and palpitations for the past 2 weeks. He does have a history of hypertension, diabetes, CKD, and history of CVA with left lower extremity weakness. No fevers or chills. No hemoptysis. He does also complain of abdominal distention with constipation but no abdominal pain. He is urinating normally and frequently ROS All systems reviewed and are negative except as per history of present illness. Medications Home Meds Reported Medications Simvastatin* (Zocor*) 20 Mg Tablet, 20 MG PO QHS, #30 TAB 03/17/19 Aspirin* (Aspirin* EC) 325 Mg Tab, 325 MG PO DAILY, TAB 03/17/19 Metformin Hcl* (Metformin Hcl*) 850 Mg Tablet, 850 MG PO WITH BREAKFAST DINNE, #60 TAB 03/17/19 Tamsulosin Hcl* (Flomax*) 0.4 Mg Cap.er.24h, 0.4 MG PO HS, CAP 03/17/19 Carvedilol* (Carvedilol*) 12.5 Mg Tablet, 12.5 MG PO BID, #60 TAB 03/17/19 Ferrous Sulfate* (Ferrous Sulfate*) 325 Mg Tabec, 325 MG PO TID, TAB 03/17/19 Amlodipine Besylate* (Amlodipine Besylate*) 10 Mg Tablet, 10 MG PO DAILY, #30 TAB 03/17/19 Discontinued Reported Medications Gabapentin* (Gabapentin*) 600 Mg Tablet, 600 MG PO BID, #60 TAB 08/16/18 Simvastatin (Simvastatin) 20 Mg Tablet, 20 MG PO QHS, #30 TAB 08/16/18 Metformin Hcl* (Metformin Hcl*) 850 Mg Tablet, 850 MG PO WITH BREAKFAST DINNE, #60 TAB 08/16/18 Tamsulosin Hcl* (Tamsulosin Hcl*) 0.4 Mg Cap.er.24h, 0.4 MG PO HS, CAP 08/16/18 Carvedilol* (Carvedilol*) 12.5 Mg Tablet, 12.5 MG PO BID, #60 TAB 08/16/18 Ferrous Sulfate* (Ferrous Sulfate*) 325 Mg Tabec, 325 MG PO TID, TAB 08/16/18 Amlodipine Besylate* (Amlodipine Besylate*) 10 Mg Tablet, 10 MG PO DAILY, #30 TAB 08/16/18 Discontinued Scripts Aspirin/Calcium Carbonate/Mag (Aspirin Buffered) 325 Mg Tablet, 325 MG PO DAILY for 30 Days, TAB Prov:BEBE BOSCH 09/13/18 Allergies Allergies: Coded Allergies: No Known Allergy (Verified , 03/17/19) PMhx/Soc History of Surgery: No Anesthesia Reaction: No (unknown) Hx Neurological Disorder: Yes (Stroke 2017) Hx Respiratory Disorders: No Hx Cardiac Disorders: Yes ([place] 5 yrs ago; peripheral edema) Hx Psychiatric Problems: No Hx Miscellaneous Medical Probl: Yes (Afib, CVA, acute on CKD, CHF, CAD s/p [place], HTN, BPH, urinary retention) Hx Alcohol Use: No Hx Substance Use: No Hx Tobacco Use: No FmHx Family History: No diabetes Physical Exam Vitals Vital Signs Date Temp Pulse Resp B/P (MAP) Pulse Ox O2 O2 Flow FiO2 Time Delivery Rate 03/17/19 97.3 84 19 148/99 97 12:45 (115) Physical Exam Const: No acute distress Head: Atraumatic Eyes: Normal Conjunctiva ENT: Normal External Ears, Nose and Mouth. Neck: Full range of motion. No meningismus. Resp: Clear to auscultation bilaterally Cardio: Regular rate and rhythm, no murmurs. 2+ distal pulses Abd: Soft, distended but nontender. Normal bowel sounds Skin: No petechiae or rashes Back: No midline or flank tenderness Ext: No cyanosis, or edema Neur: Awake and alert, chronic left-sided mild deficits in upper and lower extremity. Psych: Normal Mood and Affect Result Diagram: 03/17/19 1329 03/17/19 1329 Results 24 hrs Laboratory Tests Test 03/17/19 13:29 03/17/19 16:52 White Blood Count 5.1 10^3/ul Red Blood Count 3.47 10^6/ul Hemoglobin 10.5 g/dl Hematocrit 32.5 % Mean Corpuscular Volume 93.7 fl Mean Corpuscular Hemoglobin 30.3 pg Mean Corpuscular Hemoglobin Concent 32.3 g/dl Red Cell Distribution Width 12.5 % Platelet Count 219 10^3/UL Mean Platelet Volume 9.6 fl Immature Granulocytes % 0.000 % Neutrophils % 62.5 % Lymphocytes % 22.7 % Monocytes % 11.2 % Eosinophils % 2.6 % Basophils % 1.0 % Nucleated Red Blood Cells % 0.0 /100WBC Immature Granulocytes # 0.000 10^3/ul Neutrophils # 3.2 10^3/ul Lymphocytes # 1.2 10^3/ul Monocytes # 0.6 10^3/ul Eosinophils # 0.1 10^3/ul Basophils # 0.1 10^3/ul Nucleated Red Blood Cells # 0.0 10^3/ul Sodium Level 139 mmol/L Potassium Level 5.1 mmol/L Chloride Level 106 mmol/L Carbon Dioxide Level 23 mmol/L Anion Gap 10 Blood Urea Nitrogen 56 mg/dl Creatinine 4.38 mg/dl Est Glomerular Filtrat Rate mL/min mL/min Glucose Level 93 mg/dl Calcium Level 9.7 mg/dl Troponin I 0.029 ng/ml Urine Color YELLOW Urine Clarity CLEAR Urine pH 5.0 Urine Specific [place] 1.014 Urine Ketones NEGATIVE mg/dL Urine Nitrite NEGATIVE mg/dL Urine Bilirubin NEGATIVE mg/dL Urine Urobilinogen NEGATIVE mg/dL Urine Leukocyte Esterase NEGATIVE Lauri/ul Urine Microscopic RBC 0 /HPF Urine Microscopic WBC 1 /HPF Urine Hemoglobin 1+ mg/dL Urine Glucose NEGATIVE mg/dL Urine Total Protein 1+ mg/dl Current Medications Medications Dose Sig/Scarlet Start Time Status Last (Trade) Ordered Route PRN Stop Time Admin Dose Reason Admin Ondansetron 4 mg ER BRIDGE 03/17/19 HCl (Zofran PRN IV 17:30 03/18/19 Inj) NAUSEA/VOMITI 17:29 NG 650 mg ER BRIDGE 03/17/19 Acetaminophen PRN PO 17:30 03/18/19 (Tylenol .MILD PAIN 17:29 Tab) 1-3 OR TEMP Procedures/MDM EMERGENT LABS AND DIAGNOSTIC STUDIES: Lab Results above were reviewed and interpreted by me. CBC: Mild anemia. No evidence of acute infection BMP: Elevated BUN and creatinine, consistent with acute on chronic renal failure. No evidence of clinically significant electrolyte abnormality, acidosis, hypoglycemia Lipase: no evidence of pancreatitis Troponin within normal limits, not indicative of cardiac ischemia Lactate within normal limits without evidence of sepsis or tissue hypoperfusion UA: no evidence of infection 12-lead EKG was interpreted by Ramirez Rodriguez MD: Atrial fibrillation at 77 bpm Normal axis Normal intervals No acute ST or T wave changes suggestive of acute ischemia or STEMI. Radiology Results as interpreted by Radiology below were reviewed by Jareth Rodriguez MD: Chest x-ray shows mild patchy opacities bilaterally, likely interstitial edema Initial Nursing notes reviewed. Previous Medical Records requested via the Electronic Health Record. EMERGENCY DEPARTMENT COURSE / MEDICAL DECISION MAKING: Patient is presenting with intermittent chest pain or shortness of breath. Vit als are unremarkable other than hypertension. Labs were done and do not show any evidence of ACS, however he does have elevated BUN and creatinine compared to prior visit. This is consistent with acute renal failure. Chest x-ray shows patchy opacities which is likely secondary to fluid overload. Patient will be admitted for further work-up and management. Critical Care Time: 35 minutes Treatments/Evaluations: Close monitoring and treatment of unstable vital signs, cardiorespiratory, and neurologic status, while maintaining tight balance of fluid, respiratory, and cardiac interventions. This time includes discussing the case with the patient and the patients family. This time does not include all procedures stated elsewhere in this record. This time also includes reviewing old records, labs and radiological studies. This time includes examining and re- examining the patient. Additionally, this time also includes arranging care with admitting and consulting physicians. Accepting Care Team: Current data and ongoing care discussed. Time: Time of admission Primary Provider: Dr. Erwin Valdez Diagnosis: Primary Impression: Chest pain Chest pain type: unspecified Qualified Codes: R07.9 - Chest pain, unspecified Additional Impression: Acute on chronic renal failure Acute renal failure type: unspecified Chronic kidney disease stage: unspecified stage Qualified Codes: N17.9 - Acute kidney failure, unspecified; N18.9 - Chronic kidney disease, unspecified Condition: KALEY Puga MD Mar 17, 2019 17:56
[2019-03-17] MEDS ORDERED: GLUCAGON 1 MG INJ IM PRN (23:25)
[2019-03-17] MEDS ORDERED: GLUCOSE GEL 15 GRAM TUBE PO PRN ×2 (23:25)
[2019-03-17] MEDS ORDERED: DEXTROSE 50% 50 ML SYRINGE IV PRN ×2 (23:25)
[2019-03-17] MEDS ORDERED: GLUCOSE GEL 15 GRAM TUBE BUCCAL PRN (23:25)
[2019-03-17] MEDS ORDERED: NITROGLYCERIN (SL) 0.4 MG TAB SL PRN (23:30)
[2019-03-17] MEDS ORDERED: ACETAMINOPHEN 500 MG TAB PO PRN (23:30)
[2019-03-18] VITALS (11 sets, daily range): BP systolic 131–177; BP diastolic 74–102; PULSE 69–110; RESP 18–20; Ht 170.2 cm; Wt 79.0 kg
[2019-03-18] MEDS: INSULIN ASPART [NOVOLOG] 3 ML PEN SC SCH ×4 (07:47→21:00)
[2019-03-18] MEDS: FUROSEMIDE 40 MG INJ IV SCH (08:04)
[2019-03-18] MEDS: AMLODIPINE 10 MG TAB PO SCH (08:04)
[2019-03-18] MEDS: FERROUS SULFATE (EC) 325 MG TAB PO SCH (08:05)
[2019-03-18] MEDS: SENNA/DOCUSATE NA (8.6MG/50MG) TAB PO SCH ×2 (08:05→21:20)
[2019-03-18] MEDS: ASPIRIN (EC) 81 MG TAB PO SCH (08:05)
--- NOTE | 2019-03-18 11:48 | HP ---
Date/Time of Note Date/Time of Note DATE: 03/18/19 TIME: 11:36 Assessment/Plan VTE Prophylaxis Risk score (from [facility])>0 risk: 4 SCD applied (from [facility]): Yes Pharmacological prophylaxis: other Lines/Catheters Urinary Cath still in place: No Assessment/Plan Assessment/Plan -Chest pain, rule out acute coronary syndrome, will obtain cardiac enzymes q. 8 hours x 3, 2D echo. Dr. Cortez is asked to see patient in cardiology consultation. 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 Dr. Johnson is fol lowing in nephrology consultation. -Systolic congestive heart failure. -Atrial fibrillation. Continue aspirin. -Hypertension. -CAD, hx of NE. -Diabetes mellitus type 2 -History of stroke with right-sided weakness. -Hx of TURP Further recommendations based on clinical course. Plan of care discussed with Dr. Hood. Result Diagram: 03/17/19 1329 03/18/19 0638 Results 24hrs Laboratory Tests Test 03/17/19 13:29 03/17/19 16:52 03/18/19 06:38 03/18/19 07:46 White Blood Count 5.1 Red Blood Count 3.47 L Hemoglobin 10.5 L Hematocrit 32.5 L Mean Corpuscular Volume 93.7 Mean Corpuscular 30.3 Hemoglobin Mean Corpuscular 32.3 Hemoglobin Concent Red Cell Distribution 12.5 Width Platelet Count 219 Mean Platelet Volume 9.6 Immature Granulocytes % 0.000 L Neutrophils % 62.5 Lymphocytes % 22.7 Monocytes % 11.2 H Eosinophils % 2.6 Basophils % 1.0 Nucleated Red Blood 0.0 Cells % Immature Granulocytes # 0.000 Neutrophils # 3.2 Lymphocytes # 1.2 Monocytes # 0.6 Eosinophils # 0.1 Basophils # 0.1 Nucleated Red Blood 0.0 Cells # Sodium Level 139 141 Potassium Level 5.1 5.0 Chloride Level 106 108 Carbon Dioxide Level 23 21 Anion Gap 10 12 Blood Urea Nitrogen 56 H 58 H Creatinine 4.38 H 4.25 H Est Glomerular Filtrat Rate mL/min Glucose Level 93 115 Calcium Level 9.7 9.6 Troponin I 0.029 0.033 Urine Color YELLOW Urine Clarity CLEAR Urine pH 5.0 Urine Specific [place] 1.014 Urine Ketones NEGATIVE Urine Nitrite NEGATIVE Urine Bilirubin NEGATIVE Urine Urobilinogen NEGATIVE Urine Leukocyte Esterase NEGATIVE Urine Microscopic RBC 0 Urine Microscopic WBC 1 Urine Hemoglobin 1+ H Urine Glucose NEGATIVE Urine Total Protein 1+ H Hemoglobin A1c 5.6 Total Bilirubin 0.6 Direct Bilirubin 0.00 Indirect Bilirubin 0.6 Aspartate Amino 23 Transf (AST/SGOT) Alanine 21 Aminotransferase (ALT/SG PT) Alkaline Phosphatase 64 Total Protein 7.7 Albumin 4.2 Globulin 3.50 H Albumin/Globulin Ratio 1.20 Triglycerides Level 46 Cholesterol Level 104 LDL Cholesterol, 58 Calculated HDL Cholesterol 37 Cholesterol/HDL Ratio 2.8 Thyroid Stimulating 1.240 Hormone (TSH) Bedside Glucose 105 Test 03/18/19 11:27 Bedside Glucose 137 HPI/ROS Admit Date/Time Admit Date/Time Mar 17, 2019 at 17:29 Hx of Present Illness The patient is a 88-year-old gentleman known to me from previous admissions. Patient has extensive medical history except including a stroke with residual weakness, history of NE, congestive heart failure, hypertension, atrial fibrillation, diabetes, chronic kidney disease. Patient was seen at PMD office and was sent to the ER for evaluation of complains of chest pain and palpitations for the last 2 weeks. Patient also complains of shortness of breath. Patient underwent chest CT which revealed increased cardiomegaly and small bilateral pleural effusions. Patient is noted to have elevated BUN and creatinine. Patient denies any fever chills denies any nausea vomiting diarrhea. Patient will be admitted for further evaluation and management to telemetry floor. ROS 12 point review of system is negative except what mentioned in HPI PMH/Family/Social Past Medical History Per HPI Medications Current Medications Ondansetron HCl (Zofran Inj) 4 mg ER BRIDGE PRN IV NAUSEA/VOMITING; Start 9 at 17:30; Stop 03/18/19 at 17:29 Acetaminophen (Tylenol Tab) 650 mg ER BRIDGE PRN PO .MILD PAIN 1-3 OR TEMP; Start 03/17/19 at 17:30; Stop 03/18/19 at 17:29 Amlodipine Besylate (Norvasc) 10 mg DAILY PO Last administered on 03/18/19at 08:04; Admin Dose 10 MG; Start 03/18/19 at 09:00 Carvedilol (Coreg) 12.5 mg BID PO Last administered on 03/18/19at 08:04; Admin Dose 12.5 MG; Start 03/18/19 at 09:00 Ferrous Sulfate (Ferrous Sulfate (Ec)) 325 mg QAM PO Last administered on 03/18/19at 08:05; Admin Dose 325 MG; Start 03/18/19 at 09:00 Tamsulosin HCl (Flomax) 0.4 mg HS PO ; Start 03/18/19 at 21:00 Atorvastatin Calcium (Lipitor) 20 mg HS PO ; Start 03/18/19 at 21:00 Insulin Aspart (Novolog Insulin Pen) NOVOLOG *MILD* ALGORITHM WITH MEALS BEDTIME SC ; Start 03/18/19 at 07:55 Acetaminophen (Tylenol Tab) 500 mg Q4H PRN PO MILD PAIN(1-3)OR ELEVATED TEMP; Start 03/17/19 at 23:30 Aspirin (Halfprin) 81 mg DAILY PO Last administered on 03/18/19at 08:05; Admin Dose 81 MG; Start 03/18/19 at 09:00 Senna/Docusate Sodium (Senokot-S) 2 tab BID PO Last administered on 03/18/19at 08:05; Admin Dose 2 TAB; Start 03/18/19 at 09:00 Furosemide (Lasix) 40 mg DAILY IV Last administered on 03/18/19at 08:04; Admin Dose 40 MG; Start 03/18/19 at 09:00 Nitroglycerin (Nitroglycerin (Sl Tab) 0.4 Mg) 1 tab Q5M PRN SL ANGINA; Start 03/17/19 at 23:30 Miscellaneous Information 1 ea NOTE XX ; Start 03/17/19 at 23:25 Glucose (Glutose) 15 gm Q15M PRN PO DECREASED GLUCOSE; Start 03/17/19 at 23:25 Glucose (Glutose) 22.5 gm Q15M PRN PO DECREASED GLUCOSE; Start 03/17/19 at 23:25 Dextrose (D50w Syringe) 25 ml Q15M PRN IV DECREASED GLUCOSE; Start 03/17/19 at 23:25 Dextrose (D50w Syringe) 50 ml Q15M PRN IV DECREASED GLUCOSE; Start 03/17/19 at 23:25 Glucagon (Glucagen) 1 mg Q15M PRN IM DECREASED GLUCOSE; Start 03/17/19 at 23:25 Glucose (Glutose) 15 gm Q15M PRN BUCCAL DECREASED GLUCOSE; Start 03/17/19 at 23:25 Coded Allergies: No Known Allergy (Verified , 03/17/19) Past Surgical History Past Surgical Hx: other (Status post TURP in July [address] Shah) Family History Significant Family History: no pertinent family hx Social History Alcohol Use: none Smoking Status: Never smoker Drug Use: none Exam/Review of Systems Vital Signs Vitals Vital Signs Date Temp Pulse Resp B/P (MAP) Pulse Ox O2 O2 Flow FiO2 Time Delivery Rate 03/18/19 97.9 72 20 152/74 98 Nasal 10:57 (100) Cannula Exam Constitutional: alert, oriented Respiratory: diminished breath sounds Cardiovascular: irregular rhythm Gastrointestinal: soft, non-tender Musculoskeletal: nl extremities to inspection Extremities: normal pulses DEBRA PASTRANA Mar 18, 2019 11:47
--- NOTE | 2019-03-18 13:37 | CONS ---
Assessment/Plan Assessment/Plan Hospital Course (Demo Recall) Shortness of breath Chest pain Acute decompensated diastolic congestive heart failure Atrial fibrillation with controlled ventricular rates Hypertension Diabetes Dyslipidemia Patient presents with symptoms of dyspnea over the past few months, sharp and needlelike chest pain. CT chest evidence of pulmonary vascular congestion. Patient also with worsening renal function. Nephrology input diuretic and fluid management Check echocardiogram Serial cardiac enzymes are negative, chest pain is atypical for cardiac ischemia Recent beta-paula, continue statin therapy Patient with history of hematuria in the past, if no contraindication, would consider restarting anticoagulation Consultation Date/Type/Reason Admit Date/Time Mar 17, 2019 at 17:29 Type of Consult Cardiology Reason for Consultation Chest pain and shortness of breath Date/Time of Note DATE: 03/18/19 TIME: 13:29 Hx of Present Illness This is an 88-year-old male with past no history of atrial fibrillation, chronic kidney disease, hypertension who presents with multiple different complaints. Complains of shortness of breath off and on over the past few months. At times with exertion at times with rest. Denies dizziness or lightheadedness. He does feel symptoms of palpitations. Does also complain of chest pain. Chest pain is sharp at times or needlelike. Worse with pushing on the chest wall and leaning side to side. Denies exertional chest pain. 12 point review of systems was performed with all pertinent positives and negatives mentioned above and all else is negative Past Medical History Atrial fibrillation Medical History: congestive heart failure, diabetes, high cholesterol, hypertension, renal disease Home Meds Reported Medications Simvastatin* (Zocor*) 20 Mg Tablet, 20 MG PO QHS, #30 TAB 03/17/19 Aspirin* (Aspirin* EC) 325 Mg Tab, 325 MG PO DAILY, TAB 03/17/19 Metformin Hcl* (Metformin Hcl*) 850 Mg Tablet, 850 MG PO WITH BREAKFAST DINNE, #60 TAB 03/17/19 Tamsulosin Hcl* (Flomax*) 0.4 Mg Cap.er.24h, 0.4 MG PO HS, CAP 03/17/19 Carvedilol* (Carvedilol*) 12.5 Mg Tablet, 12.5 MG PO BID, #60 TAB 03/17/19 Ferrous Sulfate* (Ferrous Sulfate*) 325 Mg Tabec, 325 MG PO TID, TAB 03/17/19 Amlodipine Besylate* (Amlodipine Besylate*) 10 Mg Tablet, 10 MG PO DAILY, #30 TAB 03/17/19 Discontinued Reported Medications Gabapentin* (Gabapentin*) 600 Mg Tablet, 600 MG PO BID, #60 TAB 08/16/18 Simvastatin (Simvastatin) 20 Mg Tablet, 20 MG PO QHS, #30 TAB 08/16/18 Metformin Hcl* (Metformin Hcl*) 850 Mg Tablet, 850 MG PO WITH BREAKFAST DINNE, #60 TAB 08/16/18 Tamsulosin Hcl* (Tamsulosin Hcl*) 0.4 Mg Cap.er.24h, 0.4 MG PO HS, CAP 08/16/18 Carvedilol* (Carvedilol*) 12.5 Mg Tablet, 12.5 MG PO BID, #60 TAB 08/16/18 Ferrous Sulfate* (Ferrous Sulfate*) 325 Mg Tabec, 325 MG PO TID, TAB 08/16/18 Amlodipine Besylate* (Amlodipine Besylate*) 10 Mg Tablet, 10 MG PO DAILY, #30 TAB 08/16/18 Discontinued Scripts Aspirin/Calcium Carbonate/Mag (Aspirin Buffered) 325 Mg Tablet, 325 MG PO DAILY for 30 Days, TAB Prov:JULES BOSCHHUMAIRA Martínez 09/13/18 Medications Current Medications Ondansetron HCl (Zofran Inj) 4 mg ER BRIDGE PRN IV NAUSEA/VOMITING; Start 03/17/19 at 17:30; Stop 03/18/19 at 17:29 Acetaminophen (Tylenol Tab) 650 mg ER BRIDGE PRN PO .MILD PAIN 1-3 OR TEMP; Start 03/17/19 at 17:30; Stop 03/18/19 at 17:29 Amlodipine Besylate (Norvasc) 10 mg DAILY PO Last administered on 03/18/19at 08:04; Admin Dose 10 MG; Start 03/18/19 at 09:00 Carvedilol (Coreg) 12.5 mg BID PO Last administered on 03/18/19at 08:04; Admin Dose 12.5 MG; Start 03/18/19 at 09:00 Ferrous Sulfate (Ferrous Sulfate (Ec)) 325 mg QAM PO Last administered on 03/18/19at 08:05; Admin Dose 325 MG; Start 03/18/19 at 09:00 Tamsulosin HCl (Flomax) 0.4 mg HS PO ; Start 03/18/19 at 21:00 Atorvastatin Calcium (Lipitor) 20 mg HS PO ; Start 03/18/19 at 21:00 Insulin Aspart (Novolog Insulin Pen) NOVOLOG *MILD* ALGORITHM WITH MEALS BEDTIME SC ; Start 03/18/19 at 07:55 Acetaminophen (Tylenol Tab) 500 mg Q4H PRN PO MILD PAIN(1-3)OR ELEVATED TEMP; Start 03/17/19 at 23:30 Aspirin (Halfprin) 81 mg DAILY PO Last administered on 03/18/19at 08:05; Admin Dose 81 MG; Start 03/18/19 at 09:00 Senna/Docusate Sodium (Senokot-S) 2 tab BID PO Last administered on 03/18/19at 08:05; Admin Dose 2 TAB; Start 03/18/19 at 09:00 Furosemide (Lasix) 40 mg DAILY IV Last administered on 03/18/19at 08:04; Admin Dose 40 MG; Start 03/18/19 at 09:00 Nitroglycerin (Nitroglycerin (Sl Tab) 0.4 Mg) 1 tab Q5M PRN SL ANGINA; Start 03/17/19 at 23:30 Miscellaneous Information 1 ea NOTE XX ; Start 03/17/19 at 23:25 Glucose (Glutose) 15 gm Q15M PRN PO DECREASED GLUCOSE; Start 03/17/19 at 23:25 Glucose (Glutose) 22.5 gm Q15M PRN PO DECREASED GLUCOSE; Start 03/17/19 at 23:25 Dextrose (D50w Syringe) 25 ml Q15M PRN IV DECREASED GLUCOSE; Start 03/17/19 at 23:25 Dextrose (D50w Syringe) 50 ml Q15M PRN IV DECREASED GLUCOSE; Start 03/17/19 at 23:25 Glucagon (Glucagen) 1 mg Q15M PRN IM DECREASED GLUCOSE; Start 03/17/19 at 23:25 Glucose (Glutose) 15 gm Q15M PRN BUCCAL DECREASED GLUCOSE; Start 03/17/19 at 23:25 Allergies: Coded Allergies: No Known Allergy (Verified , 03/17/19) Past Surgical History Past Surgical Hx: other (Status post TURP [place] [address] Shah) Social History Alcohol Use: none Smoking Status: Never smoker Drug Use: none Exam/Review of Systems Vital Signs Vitals Vital Signs Date Temp Pulse Resp B/P (MAP) Pulse Ox O2 O2 Flow FiO2 Time Delivery Rate 03/18/19 72 12:00 03/18/19 97.9 20 152/74 98 Nasal 10:57 (100) Cannula Exam Constitutional: alert, oriented (Sitting in chair, no apparent distress) Head: normocephalic Respiratory: other (Coarse breath sounds bilaterally, minimal scattered crackles) Cardiovascular: irregular rhythm (S1-S2 heard) Gastrointestinal: soft, non-tender, bowel sounds Extremities: edema (Trace) Labs Result Diagram: 03/17/19 1329 03/18/19 0638 Results 24hrs Laboratory Tests Test 03/17/19 16:52 03/18/19 06:38 03/18/19 07:46 03/18/19 11:27 Urine Color YELLOW Urine Clarity CLEAR Urine pH 5.0 Urine Specific [place] 1.014 Urine Ketones NEGATIVE Urine Nitrite NEGATIVE Urine Bilirubin NEGATIVE Urine Urobilinogen NEGATIVE Urine Leukocyte Esterase NEGATIVE Urine Microscopic RBC 0 Urine Microscopic WBC 1 Urine Hemoglobin 1+ H Urine Glucose NEGATIVE Urine Total Protein 1+ H Sodium Level 141 Potassium Level 5.0 Chloride Level 108 Carbon Dioxide Level 21 Anion Gap 12 Blood Urea Nitrogen 58 H Creatinine 4.25 H Est Glomerular Filtrat Rate mL/min Glucose Level 115 Hemoglobin A1c 5.6 Calcium Level 9.6 Total Bilirubin 0.6 Direct Bilirubin 0.00 Indirect Bilirubin 0.6 Aspartate Amino 23 Transf (AST/SGOT) Alanine 21 Aminotransferase (ALT/SG PT) Alkaline Phosphatase 64 Troponin I 0.033 Total Protein 7.7 Albumin 4.2 Globulin 3.50 H Albumin/Globulin Ratio 1.20 Triglycerides Level 46 Cholesterol Level 104 LDL Cholesterol, 58 Calculated HDL Cholesterol 37 Cholesterol/HDL Ratio 2.8 Thyroid Stimulating 1.240 Hormone (TSH) Bedside Glucose 105 137 Imaging Imaging ECG atrial fibrillation at 70 bpm, QRS 92 ms, nonspecific ST abnormalities Medications Medications Current Medications Ondansetron HCl (Zofran Inj) 4 mg ER BRIDGE PRN IV NAUSEA/VOMITING; Start 03/17/19 at 17:30; Stop 03/18/19 at 17:29 Acetaminophen (Tylenol Tab) 650 mg ER BRIDGE PRN PO .MILD PAIN 1-3 OR TEMP; Start 03/17/19 at 17:30; Stop 03/18/19 at 17:29 Amlodipine Besylate (Norvasc) 10 mg DAILY PO Last administered on 03/18/19at 08:04; Admin Dose 10 MG; Start 03/18/19 at 09:00 Carvedilol (Coreg) 12.5 mg BID PO Last administered on 03/18/19at 08:04; Admin Dose 12.5 MG; Start 03/18/19 at 09:00 Ferrous Sulfate (Ferrous Sulfate (Ec)) 325 mg QAM PO Last administered on 03/18/19at 08:05; Admin Dose 325 MG; Start 03/18/19 at 09:00 Tamsulosin HCl (Flomax) 0.4 mg HS PO ; Start 03/18/19 at 21:00 Atorvastatin Calcium (Lipitor) 20 mg HS PO ; Start 03/18/19 at 21:00 Insulin Aspart (Novolog Insulin Pen) NOVOLOG *MILD* ALGORITHM WITH MEALS BEDTIME SC ; Start 03/18/19 at 07:55 Acetaminophen (Tylenol Tab) 500 mg Q4H PRN PO MILD PAIN(1-3)OR ELEVATED TEMP; Start 03/17/19 at 23:30 Aspirin (Halfprin) 81 mg DAILY PO Last administered on 03/18/19at 08:05; Admin Dose 81 MG; Start 03/18/19 at 09:00 Senna/Docusate Sodium (Senokot-S) 2 tab BID PO Last administered on 03/18/19at 08:05; Admin Dose 2 TAB; Start 03/18/19 at 09:00 Furosemide (Lasix) 40 mg DAILY IV Last administered on 03/18/19at 08:04; Admin Dose 40 MG; Start 03/18/19 at 09:00 Nitroglycerin (Nitroglycerin (Sl Tab) 0.4 Mg) 1 tab Q5M PRN SL ANGINA; Start 03/17/19 at 23:30 Miscellaneous Information 1 ea NOTE XX ; Start 03/17/19 at 23:25 Glucose (Glutose) 15 gm Q15M PRN PO DECREASED GLUCOSE; Start 03/17/19 at 23:25 Glucose (Glutose) 22.5 gm Q15M PRN PO DECREASED GLUCOSE; Start 03/17/19 at 23:25 Dextrose (D50w Syringe) 25 ml Q15M PRN IV DECREASED GLUCOSE; Start 03/17/19 at 23:25 Dextrose (D50w Syringe) 50 ml Q15M PRN IV DECREASED GLUCOSE; Start 03/17/19 at 23:25 Glucagon (Glucagen) 1 mg Q15M PRN IM DECREASED GLUCOSE; Start 03/17/19 at 23:25 Glucose (Glutose) 15 gm Q15M PRN BUCCAL DECREASED GLUCOSE; Start 03/17/19 at 23:25 Gilson Cortez DO Mar 18, 2019 13:37
--- NOTE | 2019-03-18 14:52 | RADRPT ---
Echocardiogram Report Patient Name: LUISANA NGUYỄNPatient ID: [id number] : 1930 (88y 11m)Study Date: 03/18/2019 11:14:01 AM Gender: MAccession #: [id number] Tech: Paulo Carrillo [facility] Location: [facility] Ref.Physician: MONTY LENNON Height(Cm): BSA: Weight(Kg): Quality: AdequateOrder Physician: MONTY LENNON Account #: Procedures: Echocardiographic Report: Transthoracic echocardiogram with complete 2D, M-Mode, and doppler examination. Indications: Shortness of breath. Measurements: 2D/M Mode Doppler Measurement Value Normal Range Measurement Value Normal Range LVIDd 2D 4.8 [ 4.2 - 5.8 ] cm AV Peak Rick 0.9 [ 100.0 - 170.0 ] cm/se c LVIDs 2D 3.4 [ 2.5 - 4.0 ] cm AV Peak PG 4.0 [ 2.0 - 9.0 ] mmHg LVPWd 2D 1.3 [ 0.6 - 1.0 ] cm LVOT Peak Rick 0.7 [ 70.0 - 110.0 ] cm/sec IVSd 2D 1.5 [ 0.6 - 1.0 ] cm LVOT Peak PG 2.0 [ 2.0 - 6.0 ] mmHg AoR Diam 2D 3.1 [ 2.6 - 3.4 ] cm MV E Peak Rick 1.1 [ 60.0 - 130.0 ] cm/sec EDV 2D 105.0 [ 62.0 - 150.0 ] ml MV A Peak Rick 0.2 [ 100.0 - 120.0 ] cm/se c ESV 2D 48.8 [ 21.0 - 61.0 ] ml MV E/A 5.2 [ 0.8 - 1.5 ] ratio EF 2D 53.5 [ 52.0 - 72.0 ] percent MV PHT 243.0 [ 20.0 - 100.0 ] msec LA Dimen 2D 4.1 [ 3.0 - 4.0 ] cm MV Decel Time 516 [ 104 - 258 ] msec MV Decel Brooks 1 Lat E` Rick 0.1 [ 10.0 - 15.0 ] cm/sec Lateral E/E` 9.0 [ 1.0 - 2.0 ] ratio MV E/A 5.2 [ 0.8 - 1.5 ] ratio MVA PHT 0.9 [ 2.0 - 4.0 ] cm2 TR Peak Rick 3.3 [ 100.0 - 280.0 ] cm/se c TR Peak PG 45.0 mmHg RVSP 60.0 [ 10.0 - 36.0 ] mmHg Findings: Left Ventricle: Normal left ventricular systolic function. Normal left ventricular cavity size. Moderate asymmetric septal hypertrophy. Ejection fraction is visually estimated at 55 %. Abnormal Diastolic Function. Right Ventricle: Normal right ventricular systolic function. Mild enlargement of right ventricle. Left Atrium: There is mild enlargement of left atrium. Right Atrium: There is moderate enlargement of right atrium. Mitral Valve: Mild mitral leaflet calcification. Mild mitral annular calcification. Mild to moderate mitral valve regurgitation. Aortic Valve: No hemodynamically significant aortic stenosis by doppler. Aortic cusps appear mildly calcified. Trace aortic valve regurgitation. Tricuspid Valve: Normal appearance of the tricuspid valve. The estimated Peak RVSP is 60 mmHg. There is moderate tricuspid regurgitation. Pericardium: Normal pericardium with no significant pericardial effusion. Aorta: Normal aortic root. IVC: Dilated inferior vena cava with poor inspiratory collapse consistent with elevated right atrial pressures. Conclusions: Normal left ventricular systolic function. Normal left ventricular cavity size. Moderate asymmetric septal hypertrophy. Ejection fraction is visually estimated at 55 %. Abnormal Diastolic Function. Normal right ventricular systolic function. Mild enlargement of right ventricle. There is mild enlargement of left atrium. There is moderate enlargement of right atrium. Mild to moderate mitral valve regurgitation. No hemodynamically significant aortic stenosis by doppler. Trace aortic valve regurgitation. The estimated Peak RVSP is 60 mmHg. There is moderate tricuspid regurgitation. Normal pericardium with no significant pericardial effusion. Electronically Signed By: Gilson Cortez 2019-03-18 14:51:54 PDT
[2019-03-18] MEDS: ATORVASTATIN 20 MG TAB PO SCH (21:19)
[2019-03-18] MEDS: TAMSULOSIN (SR) 0.4 MG CAP PO SCH (21:20)
--- NOTE | 2019-03-18 22:06 | CONS ---
Assessment/Plan Assessment/Plan Assessment/Plan (Daily) 1. acute kidney injury on CKD III/IV from Hemodynamics 2. H/o CKD III/IV diabetic nephropathy 3. Acute decompensated diastolic congestive heart failure 4. H/o Atrial fibrillation with controlled ventricular rates 5. H/o Hypertension 6. H/o Diabetes Type II, Poorly controlled 7. H/o Dyslipidemia 8. H/o BPH On Flomax ,s/P TURP in 07/2018 Plan: ECHO showed RSVP 60 mm Hg, EF 55%, abnormal diastolic function - Continue IV lasix 40mg daily for diuresis cardiology Dr. Cortez following no ACEI/ARB due to HARMONY on CKD IV Amlodipine 10mg po daily and Coreg 12.5 mg pO BID for HTN control , IV hydralazine prn Flomax for BPH will order Renal US to assess for CKD, to rule out hydronephrosis Thanks for consultation , I will follow up Consultation Date/Type/Reason Admit Date/Time Mar 17, 2019 at 17:29 Date of Consultation: Mar 18, 2019 Type of Consult NEPHROLOGY Reason for Consultation acute kidney injury on CKD III/IV Requesting Provider: MONTY LENNON MD Date/Time of Note DATE: 03/18/19 TIME: 22:05 Hx of Present Illness 88-year-old gentleman with PMHx of CVA with residual weakness, history of MT, congestive heart failure, hypertension, atrial fibrillation, diabetes, chronic kidney disease. Patient was seen at PMD office and was sent to the ER for evaluation of complains of chest pain and palpitations for the last 2 weeks. 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 BUN/Cr 56/4.38 on admission, renal has been consulted for acute kidney injury on CKD III/IV Constitutional: no complaints Eyes: no complaints ENT: no complaints Respiratory: pleuritic pain, shortness of breath Cardiovascular: chest pain Genitourinary: no complaints Musculoskeletal: no complaints Skin: no complaints Neurologic: no complaints Endocrine: no complaints Lymphatic: no complaints Psychological: no complaints Immunologic: no complaints Past Medical History Medical History: other (CVA with residual weakness, history of MT, congestive heart failure, hypertension, atrial fibrillation, diabetes, chronic kidney disease) Home Meds Reported Medications Simvastatin* (Zocor*) 20 Mg Tablet, 20 MG PO QHS, #30 TAB 03/17/19 Aspirin* (Aspirin* EC) 325 Mg Tab, 325 MG PO DAILY, TAB 03/17/19 Metformin Hcl* (Metformin Hcl*) 850 Mg Tablet, 850 MG PO WITH BREAKFAST DINNE, #60 TAB 03/17/19 Tamsulosin Hcl* (Flomax*) 0.4 Mg Cap.er.24h, 0.4 MG PO HS, CAP 03/17/19 Carvedilol* (Carvedilol*) 12.5 Mg Tablet, 12.5 MG PO BID, #60 TAB 03/17/19 Ferrous Sulfate* (Ferrous Sulfate*) 325 Mg Tabec, 325 MG PO TID, TAB 03/17/19 Amlodipine Besylate* (Amlodipine Besylate*) 10 Mg Tablet, 10 MG PO DAILY, #30 TAB 03/17/19 Discontinued Reported Medications Gabapentin* (Gabapentin*) 600 Mg Tablet, 600 MG PO BID, #60 TAB 08/16/18 Simvastatin (Simvastatin) 20 Mg Tablet, 20 MG PO QHS, #30 TAB 08/16/18 Metformin Hcl* (Metformin Hcl*) 850 Mg Tablet, 850 MG PO WITH BREAKFAST DINNE, #60 TAB 08/16/18 Tamsulosin Hcl* (Tamsulosin Hcl*) 0.4 Mg Cap.er.24h, 0.4 MG PO HS, CAP 08/16/18 Carvedilol* (Carvedilol*) 12.5 Mg Tablet, 12.5 MG PO BID, #60 TAB 08/16/18 Ferrous Sulfate* (Ferrous Sulfate*) 325 Mg Tabec, 325 MG PO TID, TAB 08/16/18 Amlodipine Besylate* (Amlodipine Besylate*) 10 Mg Tablet, 10 MG PO DAILY, #30 TAB 08/16/18 Discontinued Scripts Aspirin/Calcium Carbonate/Mag (Aspirin Buffered) 325 Mg Tablet, 325 MG PO DAILY for 30 Days, TAB Prov:BEBE BOSCH 09/13/18 Medications Current Medications Amlodipine Besylate (Norvasc) 10 mg DAILY PO Last administered on 03/18/19at 08:04; Admin Dose 10 MG; Start 03/18/19 at 09:00 Carvedilol (Coreg) 12.5 mg BID PO Last administered on 03/18/19at 21:20; Admin Dose 12.5 MG; Start 03/18/19 at 09:00 Ferrous Sulfate (Ferrous Sulfate (Ec)) 325 mg QAM PO Last administered on 03/18/19at 08:05; Admin Dose 325 MG; Start 03/18/19 at 09:00 Tamsulosin HCl (Flomax) 0.4 mg HS PO Last administered on 03/18/19at 21:20; Admin Dose 0.4 MG; Start 03/18/19 at 21:00 Atorvastatin Calcium (Lipitor) 20 mg HS PO Last administered on 03/18/19at 21:19; Admin Dose 20 MG; Start 03/18/19 at 21:00 Insulin Aspart (Novolog Insulin Pen) NOVOLOG *MILD* ALGORITHM WITH MEALS BEDTIME SC ; Start 03/18/19 at 07:55 Acetaminophen (Tylenol Tab) 500 mg Q4H PRN PO MILD PAIN(1-3)OR ELEVATED TEMP; Start 03/17/19 at 23:30 Aspirin (Halfprin) 81 mg DAILY PO Last administered on 03/18/19at 08:05; Admin Dose 81 MG; Start 03/18/19 at 09:00 Senna/Docusate Sodium (Senokot-S) 2 tab BID PO Last administered on 03/18/19at 21:20; Admin Dose 2 TAB; Start 03/18/19 at 09:00 Furosemide (Lasix) 40 mg DAILY IV Last administered on 03/18/19at 08:04; Admin Dose 40 MG; Start 03/18/19 at 09:00 Nitroglycerin (Nitroglycerin (Sl Tab) 0.4 Mg) 1 tab Q5M PRN SL ANGINA; Start 03/17/19 at 23:30 Miscellaneous Information 1 ea NOTE XX ; Start 03/17/19 at 23:25 Glucose (Glutose) 15 gm Q15M PRN PO DECREASED GLUCOSE; Start 03/17/19 at 23:25 Glucose (Glutose) 22.5 gm Q15M PRN PO DECREASED GLUCOSE; Start 03/17/19 at 23:25 Dextrose (D50w Syringe) 25 ml Q15M PRN IV DECREASED GLUCOSE; Start 03/17/19 at 23:25 Dextrose (D50w Syringe) 50 ml Q15M PRN IV DECREASED GLUCOSE; Start 03/17/19 at 23:25 Glucagon (Glucagen) 1 mg Q15M PRN IM DECREASED GLUCOSE; Start 03/17/19 at 23:25 Glucose (Glutose) 15 gm Q15M PRN BUCCAL DECREASED GLUCOSE; Start 03/17/19 at 23:25 Allergies: Coded Allergies: No Known Allergy (Verified , 03/17/19) Past Surgical History Past Surgical Hx: other (Status post TURP in July [address] Shah) Social History Alcohol Use: none Smoking Status: Never smoker Drug Use: none Exam/Review of Systems Exam Vitals Vital Signs Date Temp Pulse Resp B/P (MAP) Pulse Ox O2 O2 Flow FiO2 Time Delivery Rate 03/18/19 81 20:00 03/18/19 97.8 18 131/84 99 Nasal 19:14 (100) Cannula 03/18/19 2.0 17:57 Constitutional: alert Eyes: nl conjunctiva ENMT: nl external ears & nose Neck: supple, non-tender Respiratory: clear to auscultation, normal air movement, diminished breath deejay nds Cardiovascular: regular rate and rhythm, nl pulses Gastrointestinal: soft, non-tender Extremities: normal pulses Neurological: [employer]IV[employer] CONTR[employer]ER II-XII intact, nl mental status, nl speech, nl strength Lymph: nl lymph nodes Results Result Diagram: 03/17/19 1329 03/18/19 0638 Results 24hrs Laboratory Tests Test 03/18/19 06:38 03/18/19 07:46 03/18/19 11:27 03/18/19 17:07 Sodium Level 141 Potassium Level 5.0 Chloride Level 108 Carbon Dioxide Level 21 Anion Gap 12 Blood Urea Nitrogen 58 H Creatinine 4.25 H Est Glomerular Filtrat Rate mL/min Glucose Level 115 Hemoglobin A1c 5.6 Calcium Level 9.6 Total Bilirubin 0.6 Direct Bilirubin 0.00 Indirect Bilirubin 0.6 Aspartate Amino 23 Transf (AST/SGOT) Alanine 21 Aminotransferase (ALT/SG PT) Alkaline Phosphatase 64 Troponin I 0.033 Total Protein 7.7 Albumin 4.2 Globulin 3.50 H Albumin/Globulin Ratio 1.20 Triglycerides Level 46 Cholesterol Level 104 LDL Cholesterol, 58 Calculated HDL Cholesterol 37 Cholesterol/HDL Ratio 2.8 Thyroid Stimulating 1.240 Hormone (TSH) Bedside Glucose 105 137 104 Test 03/18/19 21:26 Bedside Glucose 111 Medications Medication Current Medications Amlodipine Besylate (Norvasc) 10 mg DAILY PO Last administered on 03/18/19at 08:04; Admin Dose 10 MG; Start 03/18/19 at 09:00 Carvedilol (Coreg) 12.5 mg BID PO Last administered on 03/18/19 21:20; Admin Dose 12.5 MG; Start 03/18/19 at 09:00 Ferrous Sulfate (Ferrous Sulfate (Ec)) 325 mg QAM PO Last administered on 03/18/19at 08:05; Admin Dose 325 MG; Start 03/18/19 at 09:00 Tamsulosin HCl (Flomax) 0.4 mg HS PO Last administered on 03/18/19 21:20; Admin Dose 0.4 MG; Start 03/18/19 at 21:00 Atorvastatin Calcium (Lipitor) 20 mg HS PO Last administered on 03/18/19 21:19; Admin Dose 20 MG; Start 03/18/19 at 21:00 Insulin Aspart (Novolog Insulin Pen) NOVOLOG *MILD* ALGORITHM WITH MEALS BEDTIME SC ; Start 03/18/19 at 07:55 Acetaminophen (Tylenol Tab) 500 mg Q4H PRN PO MILD PAIN(1-3)OR ELEVATED TEMP; Start 03/17/19 at 23:30 Aspirin (Halfprin) 81 mg DAILY PO Last administered on 03/18/19at 08:05; Admin Dose 81 MG; Start 03/18/19 at 09:00 Senna/Docusate Sodium (Senokot-S) 2 tab BID PO Last administered on 03/18/19at 21:20; Admin Dose 2 TAB; Start 03/18/19 at 09:00 Furosemide (Lasix) 40 mg DAILY IV Last administered on 03/18/19at 08:04; Admin Dose 40 MG; Start 03/18/19 at 09:00 Nitroglycerin (Nitroglycerin (Sl Tab) 0.4 Mg) 1 tab Q5M PRN SL ANGINA; Start 03/17/19 at 23:30 Miscellaneous Information 1 ea NOTE XX ; Start 03/17/19 at 23:25 Glucose (Glutose) 15 gm Q15M PRN PO DECREASED GLUCOSE; Start 03/17/19 at 23:25 Glucose (Glutose) 22.5 gm Q15M PRN PO DECREASED GLUCOSE; Start 03/17/19 at 23:25 Dextrose (D50w Syringe) 25 ml Q15M PRN IV DECREASED GLUCOSE; Start 03/17/19 at 23:25 Dextrose (D50w Syringe) 50 ml Q15M PRN IV DECREASED GLUCOSE; Start 03/17/19 at 23:25 Glucagon (Glucagen) 1 mg Q15M PRN IM DECREASED GLUCOSE; Start 03/17/19 at 23:25 Glucose (Glutose) 15 gm Q15M PRN BUCCAL DECREASED GLUCOSE; Start 03/17/19 at 23:25 NATHANAEL MULLER MD Mar 18, 2019 22:06
[2019-03-19] VITALS (11 sets, daily range): BP systolic 132–146; BP diastolic 74–99; PULSE 61–89; RESP 18–20
--- NOTE | 2019-03-19 05:33 | PN ---
Date/Time of Note Date/Time of Note DATE: 03/19/19 TIME: 05:33 Assessment/Plan VTE [place] [facility] [place]: 4 [place] [facility] [place] Yes SCD contraindicated: other Pharmacological prophylaxis: other Pharm contraindication: other Lines/Catheters Urinary Cath still in place: No Assessment/Plan Assessment/Plan -Chest pain, rule out acute coronary syndrome, will obtain cardiac enzymes q. 8 hours x 3, 2D echo. Dr. Cortez is asked to see patient in cardiology consultation. 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 Dr. Johnson is fo llowing in nephrology consultation. -Systolic congestive heart failure. -Atrial fibrillation. Continue aspirin. -Hypertension. -CAD, hx of UT. -Diabetes mellitus type 2 -History of stroke with right-sided weakness. -Hx of TURP Further recommendations based on clinical course. Plan of care discussed with Dr. Hood. Result Diagram: 03/17/19 1329 03/18/19 0638 Results 24hrs Laboratory Tests Test 03/18/19 06:38 03/18/19 07:46 03/18/19 11:27 03/18/19 17:07 Sodium Level 141 Potassium Level 5.0 Chloride Level 108 Carbon Dioxide Level 21 Anion Gap 12 Blood Urea Nitrogen 58 H Creatinine 4.25 H Est Glomerular Filtrat Rate mL/min Glucose Level 115 Hemoglobin A1c 5.6 Calcium Level 9.6 Total Bilirubin 0.6 Direct Bilirubin 0.00 Indirect Bilirubin 0.6 Aspartate Amino 23 Transf (AST/SGOT) Alanine 21 Aminotransferase (ALT/SG PT) Alkaline Phosphatase 64 Troponin I 0.033 Total Protein 7.7 Albumin 4.2 Globulin 3.50 H Albumin/Globulin Ratio 1.20 Triglycerides Level 46 Cholesterol Level 104 LDL Cholesterol, 58 Calculated HDL Cholesterol 37 Cholesterol/HDL Ratio 2.8 Thyroid Stimulating 1.240 Hormone (TSH) Bedside Glucose 105 137 104 Test 03/18/19 21:26 Bedside Glucose 111 Subjective 24 Hr Interval Summary Free Text/Dictation - naad -stable -no events overnight dw staff Exam/Review of Systems Exam Vitals Vital Signs Date Temp Pulse Resp B/P (MAP) Pulse Ox O2 O2 Flow FiO2 Time Delivery Rate 03/19/19 77 04:00 03/19/19 98.6 18 132/82 94 Nasal 03:53 (99) Cannula 03/18/19 2.0 17:57 Intake and Output 03/18/19 03/18/19 03/19/19 1414:59 22:59 06:59 IntakeIntake Total 720 ml OutputOutput Total 1200 ml BalanceBalance -480 ml Constitutional: alert, well developed Psych: nl mood/affect Eyes: nl lids, nl sclera ENMT: nl external ears & nose Neck: non-tender Respiratory: clear to auscultation Cardiovascular: nl pulses, other Gastrointestinal: soft, non-tender Musculoskeletal: nl extremities to inspection Extremities: normal pulses Neurological: confused Skin: nl turgor Lymph: nontender Results Results 24hrs Laboratory Tests Test 03/18/19 06:38 03/18/19 07:46 03/18/19 11:27 03/18/19 17:07 Sodium Level 141 Potassium Level 5.0 Chloride Level 108 Carbon Dioxide Level 21 Anion Gap 12 Blood Urea Nitrogen 58 H Creatinine 4.25 H Est Glomerular Filtrat Rate mL/min Glucose Level 115 Hemoglobin A1c 5.6 Calcium Level 9.6 Total Bilirubin 0.6 Direct Bilirubin 0.00 Indirect Bilirubin 0.6 Aspartate Amino 23 Transf (AST/SGOT) Alanine 21 Aminotransferase (ALT/SG PT) Alkaline Phosphatase 64 Troponin I 0.033 Total Protein 7.7 Albumin 4.2 Globulin 3.50 H Albumin/Globulin Ratio 1.20 Triglycerides Level 46 Cholesterol Level 104 LDL Cholesterol, 58 Calculated HDL Cholesterol 37 Cholesterol/HDL Ratio 2.8 Thyroid Stimulating 1.240 Hormone (TSH) Bedside Glucose 105 137 104 Test 03/18/19 21:26 Bedside Glucose 111 Medications Medication Current Medications Amlodipine Besylate (Norvasc) 10 mg DAILY PO Last administered on 03/18/19at 08:04; Admin Dose 10 MG; Start 03/18/19 at 09:00 Carvedilol (Coreg) 12.5 mg BID PO Last administered on 03/18/19 21:20; Admin Dose 12.5 MG; Start 03/18/19 at 09:00 Ferrous Sulfate (Ferrous Sulfate (Ec)) 325 mg QAM PO Last administered on 03/18/19at 08:05; Admin Dose 325 MG; Start 03/18/19 at 09:00 Tamsulosin HCl (Flomax) 0.4 mg HS PO Last administered on 03/18/19at 21:20; Admin Dose 0.4 MG; Start 03/18/19 at 21:00 Atorvastatin Calcium (Lipitor) 20 mg HS PO Last administered on 03/18/19at 21:19; Admin Dose 20 MG; Start 03/18/19 at 21:00 Insulin Aspart (Novolog Insulin Pen) NOVOLOG *MILD* ALGORITHM WITH MEALS BEDTIM E SC ; Start 03/18/19 at 07:55 Acetaminophen (Tylenol Tab) 500 mg Q4H PRN PO MILD PAIN(1-3)OR ELEVATED TEMP; Start 03/17/19 at 23:30 Aspirin (Halfprin) 81 mg DAILY PO Last administered on 03/18/19at 08:05; Admin Dose 81 MG; Start 03/18/19 at 09:00 Senna/Docusate Sodium (Senokot-S) 2 tab BID PO Last administered on 03/18/19at 21:20; Admin Dose 2 TAB; Start 03/18/19 at 09:00 Furosemide (Lasix) 40 mg DAILY IV Last administered on 03/18/19at 08:04; Admin Dose 40 MG; Start 03/18/19 at 09:00 Nitroglycerin (Nitroglycerin (Sl Tab) 0.4 Mg) 1 tab Q5M PRN SL ANGINA; Start 03/17/19 at 23:30 Miscellaneous Information 1 ea NOTE XX ; Start 03/17/19 at 23:25 Glucose (Glutose) 15 gm Q15M PRN PO DECREASED GLUCOSE; Start 03/17/19 at 23:25 Glucose (Glutose) 22.5 gm Q15M PRN PO DECREASED GLUCOSE; Start 03/17/19 at 23:25 Dextrose (D50w Syringe) 25 ml Q15M PRN IV DECREASED GLUCOSE; Start 03/17/19 at 23:25 Dextrose (D50w Syringe) 50 ml Q15M PRN IV DECREASED GLUCOSE; Start 03/17/19 at 23:25 Glucagon (Glucagen) 1 mg Q15M PRN IM DECREASED GLUCOSE; Start 03/17/19 at 23:25 Glucose (Glutose) 15 gm Q15M PRN BUCCAL DECREASED GLUCOSE; Start 03/17/19 at 23:25 EVERARDO OLIVEROS Mar 19, 2019 05:33
[2019-03-19] MEDS: INSULIN ASPART [NOVOLOG] 3 ML PEN SC SCH ×4 (07:55→20:59)
[2019-03-19] MEDS: AMLODIPINE 10 MG TAB PO SCH (08:14)
[2019-03-19] MEDS: SENNA/DOCUSATE NA (8.6MG/50MG) TAB PO SCH ×2 (08:14→20:58)
[2019-03-19] MEDS: FERROUS SULFATE (EC) 325 MG TAB PO SCH (08:14)
[2019-03-19] MEDS: ASPIRIN (EC) 81 MG TAB PO SCH (08:14)
[2019-03-19] MEDS: FUROSEMIDE 40 MG INJ IV SCH (08:14)
--- NOTE | 2019-03-19 10:57 | CONS ---
Assessment/Plan Assessment/Plan Assessment/Plan (Daily) 1. 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 H/o CKD III/IV diabetic nephropathy 3. Acute decompensated diastolic congestive heart failure 4. H/o Atrial fibrillation with controlled ventricular rates 5. H/o Hypertension 6. H/o Diabetes Type II, Poorly controlled 7. H/o Dyslipidemia 8. H/o BPH On Flomax ,s/P TURP in 07/2018 Plan: ECHO showed RSVP 60 mm Hg, EF 55%, abnormal diastolic function - Continue IV lasix 40mg daily for diuresis cardiology Dr. Cortez following no ACEI/ARB due to HARMONY on CKD IV, BUN/Cr still high 58/4.3- may be near establishing new baseline Amlodipine 10mg po daily and Coreg 12.5 mg pO BID for HTN control , IV hydralazine prn Flomax for BPH will order Renal US to assess for CKD, to rule out hydronephrosis will follow up Consultation Date/Type/Reason Admit Date/Time Mar 17, 2019 at 17:29 Initial Consult Date 03/18/19 Type of Consult NEPHROLOGY Requesting Provider: MONTY LENNON MD Date/Time of Note DATE: 03/19/19 TIME: 10:57 24 HR Interval Summary Free Text/Dictation BUN/Cr still high 58/4.3, BP stable, Exam/Review of Systems Exam Vitals Vital Signs Date Temp Pulse Resp B/P (MAP) Pulse Ox O2 O2 Flow FiO2 Time Delivery Rate 03/19/19 89 08:16 03/19/19 98.6 18 132/82 94 Nasal 03:53 (99) Cannula 03/18/19 2.0 17:57 Intake and Output 03/18/19 03/18/19 03/19/19 1515:00 23:00 07:00 IntakeIntake Total 720 ml 360 ml OutputOutput Total 1200 ml 420 ml BalanceBalance -480 ml -60 ml Exam Constitutional: alert Eyes: nl conjunctiva ENMT: nl external ears & nose Neck: supple, non-tender Respiratory: clear to auscultation, normal air movement, diminished breath sounds Cardiovascular: regular rate and rhythm, nl pulses Gastrointestinal: soft, non-tender Extremities: normal pulses 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, nl mental status, nl speech, nl strength Lymph: nl lymph nodes Results Result Diagram: 03/19/19 0742 03/19/19 0742 Results 24hrs Laboratory Tests Test 03/18/19 11:27 03/18/19 17:07 03/18/19 21:26 03/19/19 07:42 Bedside Glucose 137 104 111 White Blood Count 4.6 L Red Blood Count 3.39 L Hemoglobin 10.3 L Hematocrit 31.9 L Mean Corpuscular Volume 94.1 Mean Corpuscular 30.4 Hemoglobin Mean Corpuscular 32.3 Hemoglobin Concent Red Cell Distribution 12.5 Width Platelet Count 221 Mean Platelet Volume 9.7 Immature Granulocytes % 0.200 Neutrophils % 65.8 Lymphocytes % 20.5 Monocytes % 10.3 Eosinophils % 2.8 Basophils % 0.4 Nucleated Red Blood 0.0 Cells % Immature Granulocytes # 0.010 Neutrophils # 3.1 Lymphocytes # 1.0 Monocytes # 0.5 Eosinophils # 0.1 Basophils # 0.0 Nucleated Red Blood 0.0 Cells # Sodium Level 139 Potassium Level 4.5 Chloride Level 105 Carbon Dioxide Level 23 Anion Gap 11 Blood Urea Nitrogen 58 H Creatinine 4.30 H Est Glomerular Filtrat Rate mL/min Glucose Level 110 Calcium Level 9.3 Test 03/19/19 07:59 Bedside Glucose 100 Medications Medication Current Medications Amlodipine Besylate (Norvasc) 10 mg DAILY PO Last administered on 03/19/19at 08:14; Admin Dose 10 MG; Start 03/18/19 at 09:00 Carvedilol (Coreg) 12.5 mg BID PO Last administered on 03/19/19at 08:13; Admin Dose 12.5 MG; Start 03/18/19 at 09:00 Ferrous Sulfate (Ferrous Sulfate (Ec)) 325 mg QAM PO Last administered on 03/19/19at 08:14; Admin Dose 325 MG; Start 03/18/19 at 09:00 Tamsulosin HCl (Flomax) 0.4 mg HS PO Last administered on 03/18/19at 21:20; Admin Dose 0.4 MG; Start 03/18/19 at 21:00 Atorvastatin Calcium (Lipitor) 20 mg HS PO Last administered on 03/18/19at 21:19; Admin Dose 20 MG; Start 03/18/19 at 21:00 Insulin Aspart (Novolog Insulin Pen) NOVOLOG *MILD* ALGORITHM WITH MEALS BEDTIME SC ; Start 03/18/19 at 07:55 Acetaminophen (Tylenol Tab) 500 mg Q4H PRN PO MILD PAIN(1-3)OR ELEVATED TEMP; Start 03/17/19 at 23:30 Aspirin (Halfprin) 81 mg DAILY PO Last administered on 03/19/19at 08:14; Admin Dose 81 MG; Start 03/18/19 at 09:00 Senna/Docusate Sodium (Senokot-S) 2 tab BID PO Last administered on 03/19/19at 08:14; Admin Dose 2 TAB; Start 03/18/19 at 09:00 Furosemide (Lasix) 40 mg DAILY IV Last administered on 03/19/19at 08:14; Admin Dose 40 MG; Start 03/18/19 at 09:00 Nitroglycerin (Nitroglycerin (Sl Tab) 0.4 Mg) 1 tab Q5M PRN SL ANGINA; Start 03/17/19 at 23:30 Miscellaneous Information 1 ea NOTE XX ; Start 03/17/19 at 23:25 Glucose (Glutose) 15 gm Q15M PRN PO DECREASED GLUCOSE; Start 03/17/19 at 23:25 Glucose (Glutose) 22.5 gm Q15M PRN PO DECREASED GLUCOSE; Start 03/17/19 at 23:25 Dextrose (D50w Syringe) 25 ml Q15M PRN IV DECREASED GLUCOSE; Start 03/17/19 at 23:25 Dextrose (D50w Syringe) 50 ml Q15M PRN IV DECREASED GLUCOSE; Start 03/17/19 at 23:25 Glucagon (Glucagen) 1 mg Q15M PRN IM DECREASED GLUCOSE; Start 03/17/19 at 23:25 Glucose (Glutose) 15 gm Q15M PRN BUCCAL DECREASED GLUCOSE; Start 03/17/19 at 23:25 NATHANAEL MULLER MD Mar 19, 2019 10:57
--- NOTE | 2019-03-19 13:37 | CONS ---
Assessment/Plan Assessment/Plan Hospital Course (Demo Recall) Shortness of breath Chest pain Acute decompensated diastolic congestive heart failure Atrial fibrillation with controlled ventricular rates Hypertension Diabetes Dyslipidemia Patient presents with symptoms of dyspnea over the past few months, sharp and needlelike chest pain. CT chest evidence of pulmonary vascular congestion. Patient also with worsening renal function. Nephrology input diuretic and fluid management Continue beta-paula, continue statin therapy Patient with history of hematuria in the past, if no contraindication, would restart anticoagulation Consultation Date/Type/Reason Admit Date/Time Mar 17, 2019 at 17:29 Initial Consult Date 03/18/19 Type of Consult Cardiology Requesting Provider: MONTY LENNON MD Date/Time of Note DATE: 03/19/19 TIME: 13:35 24 HR Interval Summary Free Text/Dictation Shortness of breath is better. Denies chest pain, palpitations Exam/Review of Systems Vital Signs Vitals Vital Signs Date Temp Pulse Resp B/P (MAP) Pulse Ox O2 O2 Flow FiO2 Time Delivery Rate 03/19/19 63 13:11 03/19/19 97.7 20 134/74 96 Nasal 11:26 (94) Cannula 03/19/19 2.0 08:00 Intake and Output 03/18/19 03/18/19 03/19/19 1515:00 23:00 07:00 IntakeIntake Total 720 ml 360 ml OutputOutput Total 1200 ml 420 ml BalanceBalance -480 ml -60 ml Exam Constitutional: alert, oriented (Sitting in chair, no apparent distress) Head: normocephalic Respiratory: other (Coarse breath sounds bilaterally, no wheezing) Cardiovascular: irregular rhythm (S1-S2 heard) Gastrointestinal: soft, non-tender, bowel sounds Extremities: edema Labs Result Diagram: 03/19/19 0742 03/19/19 0742 Results 24hrs Laboratory Tests Test 03/18/19 17:07 03/18/19 21:26 03/19/19 07:42 03/19/19 07:59 Bedside Glucose 104 111 100 White Blood Count 4.6 L Red Blood Count 3.39 L Hemoglobin 10.3 L Hematocrit 31.9 L Mean Corpuscular Volume 94.1 Mean Corpuscular 30.4 Hemoglobin Mean Corpuscular 32.3 Hemoglobin Concent Red Cell Distribution 12.5 Width Platelet Count 221 Mean Platelet Volume 9.7 Immature Granulocytes % 0.200 Neutrophils % 65.8 Lymphocytes % 20.5 Monocytes % 10.3 Eosinophils % 2.8 Basophils % 0.4 Nucleated Red Blood 0.0 Cells % Immature Granulocytes # 0.010 Neutrophils # 3.1 Lymphocytes # 1.0 Monocytes # 0.5 Eosinophils # 0.1 Basophils # 0.0 Nucleated Red Blood 0.0 Cells # Sodium Level 139 Potassium Level 4.5 Chloride Level 105 Carbon Dioxide Level 23 Anion Gap 11 Blood Urea Nitrogen 58 H Creatinine 4.30 H Est Glomerular Filtrat Rate mL/min Glucose Level 110 Calcium Level 9.3 Test 03/19/19 12:07 Bedside Glucose 106 Medications Medications Current Medications Amlodipine Besylate (Norvasc) 10 mg DAILY PO Last administered on 03/19/19 08:14; Admin Dose 10 MG; Start 03/18/19 at 09:00 Carvedilol (Coreg) 12.5 mg BID PO Last administered on 03/19/19 08:13; Admin Dose 12.5 MG; Start 03/18/19 at 09:00 Ferrous Sulfate (Ferrous Sulfate (Ec)) 325 mg QAM PO Last administered on 03/19/19 08:14; Admin Dose 325 MG; Start 03/18/19 at 09:00 Tamsulosin HCl (Flomax) 0.4 mg HS PO Last administered on 03/18/19 21:20; Admin Dose 0.4 MG; Start 03/18/19 at 21:00 Atorvastatin Calcium (Lipitor) 20 mg HS PO Last administered on 03/18/19 21:19; Admin Dose 20 MG; Start 03/18/19 at 21:00 Insulin Aspart (Novolog Insulin Pen) NOVOLOG *MILD* ALGORITHM WITH MEALS BEDTIME SC ; Start 03/18/19 at 07:55 Acetaminophen (Tylenol Tab) 500 mg Q4H PRN PO MILD PAIN(1-3)OR ELEVATED TEMP; Start 03/17/19 at 23:30 Aspirin (Halfprin) 81 mg DAILY PO Last administered on 03/19/19 08:14; Admin Dose 81 MG; Start 03/18/19 at 09:00 Senna/Docusate Sodium (Senokot-S) 2 tab BID PO Last administered on 03/19/19 08:14; Admin Dose 2 TAB; Start 03/18/19 at 09:00 Furosemide (Lasix) 40 mg DAILY IV Last administered on 03/19/19at 08:14; Admin Dose 40 MG; Start 03/18/19 at 09:00 Nitroglycerin (Nitroglycerin (Sl Tab) 0.4 Mg) 1 tab Q5M PRN SL ANGINA; Start 03/17/19 at 23:30 Miscellaneous Information 1 ea NOTE XX ; Start 03/17/19 at 23:25 Glucose (Glutose) 15 gm Q15M PRN PO DECREASED GLUCOSE; Start 03/17/19 at 23:25 Glucose (Glutose) 22.5 gm Q15M PRN PO DECREASED GLUCOSE; Start 03/17/19 at 23:25 Dextrose (D50w Syringe) 25 ml Q15M PRN IV DECREASED GLUCOSE; Start 03/17/19 at 23:25 Dextrose (D50w Syringe) 50 ml Q15M PRN IV DECREASED GLUCOSE; Start 03/17/19 at 23:25 Glucagon (Glucagen) 1 mg Q15M PRN IM DECREASED GLUCOSE; Start 03/17/19 at 23:25 Glucose (Glutose) 15 gm Q15M PRN BUCCAL DECREASED GLUCOSE; Start 03/17/19 at 23:25 Gilson Cortez DO Mar 19, 2019 13:37
[2019-03-19] MEDS ORDERED: hydrALAzine 20 MG INJ IV PRN (20:00)
[2019-03-19] MEDS: APIXABAN 5 MG TABLET PO SCH (20:58)
[2019-03-19] MEDS: ATORVASTATIN 20 MG TAB PO SCH (20:58)
[2019-03-19] MEDS: TAMSULOSIN (SR) 0.4 MG CAP PO SCH (20:58)
[2019-03-20] VITALS (13 sets, daily range): BP systolic 128–159; BP diastolic 67–87; PULSE 60–100; RESP 16–19
[2019-03-20] MEDS: INSULIN ASPART [NOVOLOG] 3 ML PEN SC SCH ×4 (07:55→21:00)
[2019-03-20] MEDS: FUROSEMIDE 40 MG INJ IV SCH (08:18)
[2019-03-20] MEDS: FERROUS SULFATE (EC) 325 MG TAB PO SCH (08:18)
[2019-03-20] MEDS: APIXABAN 5 MG TABLET PO SCH ×2 (08:18→21:22)
[2019-03-20] MEDS: AMLODIPINE 10 MG TAB PO SCH (08:19)
[2019-03-20] MEDS: ASPIRIN (EC) 81 MG TAB PO SCH (08:19)
[2019-03-20] MEDS: SENNA/DOCUSATE NA (8.6MG/50MG) TAB PO SCH ×2 (08:19→21:25)
--- NOTE | 2019-03-20 08:39 | CONS ---
Assessment/Plan Assessment/Plan Assessment/Plan (Daily) 1. 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 H/o CKD III/IV diabetic nephropathy 3. Acute decompensated diastolic congestive heart failure 4. H/o Atrial fibrillation with controlled ventricular rates 5. H/o Hypertension 6. H/o Diabetes Type II, Poorly controlled 7. H/o Dyslipidemia 8. H/o BPH On Flomax ,s/P TURP in 07/2018 Plan: ECHO showed RSVP 60 mm Hg, EF 55%, abnormal diastolic function - BUN/Cr 58/4.3- on lasix 40mg IV daily for diuresis cardiology Dr. Cortez following no ACEI/ARB due to HARMONY on CKD IV, BUN/Cr still high 58/4.3- will follow up on AM labs Amlodipine 10mg po daily and Coreg 12.5 mg pO BID for HTN control , IV hydralazine prn Flomax for BPH will order Renal US to assess for CKD, to rule out hydronephrosis will follow up Consultation Date/Type/Reason Admit Date/Time Mar 17, 2019 at 17:29 Initial Consult Date 03/18/19 Type of Consult NEPHROLOGY Requesting Provider: MONTY LENNON MD Date/Time of Note DATE: 03/20/19 TIME: 08:39 Exam/Review of Systems Exam Vitals Vital Signs Date Temp Pulse Resp B/P (MAP) Pulse Ox O2 O2 Flow FiO2 Time Delivery Rate 03/20/19 Nasal 2.0 08:28 Cannula 03/20/19 98.3 82 16 130/87 98 07:21 (101) Intake and Output 03/19/19 03/19/19 03/20/19 1515:00 23:00 07:00 IntakeIntake Total 250 ml 650 ml 250 ml OutputOutput Total 300 ml 900 ml 600 ml BalanceBalance -50 ml -250 ml -350 ml Results Result Diagram: 03/19/19 0742 03/19/19 0742 Results 24hrs Laboratory Tests Test 03/19/19 12:07 03/19/19 17:11 03/19/19 20:57 03/20/19 07:56 Bedside Glucose 106 227 H 122 98 Medications Medication Current Medications Amlodipine Besylate (Norvasc) 10 mg DAILY PO Last administered on 03/20/19at 08:19; Admin Dose 10 MG; Start 03/18/19 at 09:00 Carvedilol (Coreg) 12.5 mg BID PO Last administered on 03/20/19 08:19; Admin Dose 12.5 MG; Start 03/18/19 at 09:00 Ferrous Sulfate (Ferrous Sulfate (Ec)) 325 mg QAM PO Last administered on 03/20/19 08:18; Admin Dose 325 MG; Start 03/18/19 at 09:00 Tamsulosin HCl (Flomax) 0.4 mg HS PO Last administered on 03/19/19 20:58; Admin Dose 0.4 MG; Start 03/18/19 at 21:00 Atorvastatin Calcium (Lipitor) 20 mg HS PO Last administered on 03/19/19 20:58; Admin Dose 20 MG; Start 03/18/19 at 21:00 Insulin Aspart (Novolog Insulin Pen) NOVOLOG *MILD* ALGORITHM WITH MEALS BEDTIME SC Last administered on 03/19/19 17:21; Admin Dose 3 UNIT; Start 03/18/19 at 07:55 Acetaminophen (Tylenol Tab) 500 mg Q4H PRN PO MILD PAIN(1-3)OR ELEVATED TEMP; Start 03/17/19 at 23:30 Aspirin (Halfprin) 81 mg DAILY PO Last administered on 03/20/19 08:19; Admin Dose 81 MG; Start 03/18/19 at 09:00 Senna/Docusate Sodium (Senokot-S) 2 tab BID PO Last administered on 03/20/19 08:19; Admin Dose 2 TAB; Start 03/18/19 at 09:00 Furosemide (Lasix) 40 mg DAILY IV Last administered on 03/20/19 08:18; Admin Dose 40 MG; Start 03/18/19 at 09:00 Nitroglycerin (Nitroglycerin (Sl Tab) 0.4 Mg) 1 tab Q5M PRN SL ANGINA; Start 03/17/19 at 23:30 Miscellaneous Information 1 ea NOTE XX ; Start 03/17/19 at 23:25 Glucose (Glutose) 15 gm Q15M PRN PO DECREASED GLUCOSE; Start 03/17/19 at 23:25 Glucose (Glutose) 22.5 gm Q15M PRN PO DECREASED GLUCOSE; Start 03/17/19 at 23:25 Dextrose (D50w Syringe) 25 ml Q15M PRN IV DECREASED GLUCOSE; Start 03/17/19 at 23:25 Dextrose (D50w Syringe) 50 ml Q15M PRN IV DECREASED GLUCOSE; Start 03/17/19 at 23:25 Glucagon (Glucagen) 1 mg Q15M PRN IM DECREASED GLUCOSE; Start 03/17/19 at 23:25 Glucose (Glutose) 15 gm Q15M PRN BUCCAL DECREASED GLUCOSE; Start 03/17/19 at 23:25 Apixaban (Eliquis) 2.5 mg BID PO Last administered on 03/20/19at 08:18; Admin Dose 2.5 MG; Start 03/19/19 at 21:00 Hydralazine HCl (Apresoline) 10 mg Q4H PRN IV SBP more than 150 mm hg ; Start 03/19/19 at 20:00 NATHANAEL MULLER MD Mar 20, 2019 08:39
--- NOTE | 2019-03-20 12:12 | PN ---
Date/Time of Note Date/Time of Note DATE: 03/20/19 TIME: 12:12 Assessment/Plan VTE Prophylaxis Risk score (from [facility])>0 risk: 6 [place]CD applied (from [facility] [place] Yes SCD contraindicated: other Pharmacological prophylaxis: other Pharm contraindication: other Lines/Catheters [facility]from [facility] Saline Lock Urinary Cath still in place: No Assessment/Plan Assessment/Plan -Chest pain, rule out acute coronary syndrome, will obtain cardiac enzymes q. 8 hours x 3, 2D echo. Dr. Cortez is asked to see patient in cardiology consultation. 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 Dr. Johnson is following in nephrology consultation. -Systolic congestive heart failure. -Atrial fibrillation. Continue aspirin. -Hypertension. -CAD, hx of [place]. -Diabetes mellitus type 2 -History of stroke with right-sided weakness. -Hx of TURP Further recommendations based on clinical course. Plan of care discussed with Dr. Hood. Result Diagram: 03/19/19 0742 03/19/19 0742 Results 24hrs Laboratory Tests Test 03/19/19 17:11 03/19/19 20:57 03/20/19 07:56 Bedside Glucose 227 H 122 98 Subjective 24 Hr Interval Summary Free Text/Dictation nad up in chair feels better now no events overnight SNF placement when stable Respiratory: no complaints Cardiovascular: no complaints Gastrointestinal: no complaints Genitourinary: no complaints Exam/Review of Systems Exam Vitals Vital Signs Date Temp Pulse Resp B/P (MAP) Pulse Ox O2 O2 Flow FiO2 Time Delivery Rate 03/20/19 98.4 60 16 134/67 96 11:10 (89) 03/20/19 Nasal 2.0 08:28 Cannula Intake and Output 03/19/19 03/19/19 03/20/19 1515:00 23:00 07:00 IntakeIntake Total 250 ml 650 ml 250 ml OutputOutput Total 300 ml 900 ml 600 ml BalanceBalance -50 ml -250 ml -350 ml Constitutional: alert, well developed Psych: nl mood/affect Eyes: nl lids, nl sclera ENMT: nl external ears & nose Neck: non-tender Respiratory: clear to auscultation Cardiovascular: nl pulses, other (1s2) Gastrointestinal: soft, non-tender Musculoskeletal: nl extremities to inspection Extremities: normal pulses Neurological: other (alert/reponsive) Lymph: nontender Results Results 24hrs Laboratory Tests Test 03/19/19 17:11 03/19/19 20:57 03/20/19 07:56 Bedside Glucose 227 H 122 98 Medications Medication Current Medications Amlodipine Besylate (Norvasc) 10 mg DAILY PO Last administered on 03/20/19 08:19; Admin Dose 10 MG; Start 03/18/19 at 09:00 Carvedilol (Coreg) 12.5 mg BID PO Last administered on 03/20/19 08:19; Admin Dose 12.5 MG; Start 03/18/19 at 09:00 Ferrous Sulfate (Ferrous Sulfate (Ec)) 325 mg QAM PO Last administered on 03/20/19 08:18; Admin Dose 325 MG; Start 03/18/19 at 09:00 Tamsulosin HCl (Flomax) 0.4 mg HS PO Last administered on 03/19/19 20:58; Admin Dose 0.4 MG; Start 03/18/19 at 21:00 Atorvastatin Calcium (Lipitor) 20 mg HS PO Last administered on 03/19/19 20:58; Admin Dose 20 MG; Start 03/18/19 at 21:00 Insulin Aspart (Novolog Insulin Pen) NOVOLOG *MILD* ALGORITHM WITH MEALS BEDTIME SC Last administered on 03/19/19 17:21; Admin Dose 3 UNIT; Start 03/18/19 at 07:55 Acetaminophen (Tylenol Tab) 500 mg Q4H PRN PO MILD PAIN(1-3)OR ELEVATED TEMP; Start 03/17/19 at 23:30 Aspirin (Halfprin) 81 mg DAILY PO Last administered on 03/20/19 08:19; Admin Dose 81 MG; Start 03/18/19 at 09:00 Senna/Docusate Sodium (Senokot-S) 2 tab BID PO Last administered on 03/20/19 08:19; Admin Dose 2 TAB; Start 03/18/19 at 09:00 Furosemide (Lasix) 40 mg DAILY IV Last administered on 03/20/19 08:18; Admin Dose 40 MG; Start 03/18/19 at 09:00 Nitroglycerin (Nitroglycerin (Sl Tab) 0.4 Mg) 1 tab Q5M PRN SL ANGINA; Start 6/5/19 at 23:30 Miscellaneous Information 1 ea NOTE XX ; Start 03/17/19 at 23:25 Glucose (Glutose) 15 gm Q15M PRN PO DECREASED GLUCOSE; Start 03/17/19 at 23:25 Glucose (Glutose) 22.5 gm Q15M PRN PO DECREASED GLUCOSE; Start 03/17/19 at 23:25 Dextrose (D50w Syringe) 25 ml Q15M PRN IV DECREASED GLUCOSE; Start 03/17/19 at 23:25 Dextrose (D50w Syringe) 50 ml Q15M PRN IV DECREASED GLUCOSE; Start 03/17/19 at 23:25 Glucagon (Glucagen) 1 mg Q15M PRN IM DECREASED GLUCOSE; Start 03/17/19 at 23:25 Glucose (Glutose) 15 gm Q15M PRN BUCCAL DECREASED GLUCOSE; Start 03/17/19 at 23:25 Apixaban (Eliquis) 2.5 mg BID PO Last administered on 03/20/19at 08:18; Admin Dose 2.5 MG; Start 03/19/19 at 21:00 Hydralazine HCl (Apresoline) 10 mg Q4H PRN IV SBP more than 150 mm hg ; Start 03/19/19 at 20:00 EVERARDO OLIVEROS Mar 20, 2019 12:12
[2019-03-20] MEDS: TAMSULOSIN (SR) 0.4 MG CAP PO SCH (21:22)
[2019-03-20] MEDS: ATORVASTATIN 20 MG TAB PO SCH (21:22)
[2019-03-21] VITALS (11 sets, daily range): BP systolic 112–144; BP diastolic 65–87; PULSE 52–82; RESP 16–20
--- NOTE | 2019-03-21 07:07 | CONS ---
Assessment/Plan Assessment/Plan Hospital Course (Demo Recall) Impression: Chest pain, resolved, negative troponins Acute decompensated diastolic congestive heart failure, improved Chronic atrial fibrillation, on Eliquis, rate controlled Hypertension, controlled Diabetes Dyslipidemia Recommendations: Continue beta paula, statin, Eliquis Management of renal function as per Nephrology Consultation Date/Type/Reason Admit Date/Time Mar 17, 2019 at 17:29 Initial Consult Date 03/18/19 Type of Consult Cardiology Requesting Provider: MONTY LENNON MD Date/Time of Note DATE: 03/21/19 TIME: 07:05 24 HR Interval Summary Free Text/Dictation Sitting up in chair, denies dyspnea, chest pain,has some epigastric discomfort Exam/Review of Systems Vital Signs Vitals Vital Signs Date Temp Pulse Resp B/P (MAP) Pulse Ox O2 O2 Flow FiO2 Time Delivery Rate 03/21/19 68 04:00 03/21/19 98.3 20 144/80 96 04:00 (101) 03/20/19 Nasal 2.0 20:00 Cannula Intake and Output 03/20/19 03/20/19 03/21/19 1515:00 23:00 07:00 IntakeIntake Total 800 ml 300 ml OutputOutput Total 900 ml BalanceBalance 800 ml -600 ml Exam Constitutional: alert, well developed Psych: no complaints, nl mood/affect Head: normocephalic, atraumatic Eyes: EOMI, nl lids ENMT: nl external ears & nose Neck: supple; No jvd, No bruits Respiratory: clear to auscultation, normal air movement Cardiovascular: irregular rhythm; No murmurs/extra sounds Gastrointestinal: soft, non-tender Musculoskeletal: nl extremities to inspection Extremities: No edema Neurological: nl mental status, nl speech Skin: nl turgor Labs Result Diagram: 03/21/19 0533 03/19/19 0742 Results 24hrs Laboratory Tests Test 03/20/19 07:56 03/20/19 12:12 03/20/19 17:19 03/20/19 21:18 Bedside Glucose 98 99 95 171 Test 03/21/19 05:33 White Blood Count 4.7 L Red Blood Count 3.48 L Hemoglobin 10.3 L Hematocrit 31.8 L Mean Corpuscular Volume 91.4 Mean Corpuscular 29.6 Hemoglobin Mean Corpuscular 32.4 Hemoglobin Concent Red Cell Distribution 12.2 Width Platelet Count 266 # Mean Platelet Volume 9.8 Immature Granulocytes % 0.200 Neutrophils % 55.1 Lymphocytes % 27.5 Monocytes % 12.7 H Eosinophils % 3.9 Basophils % 0.6 Nucleated Red Blood 0.0 Cells % Immature Granulocytes # 0.010 Neutrophils # 2.6 Lymphocytes # 1.3 Monocytes # 0.6 Eosinophils # 0.2 Basophils # 0.0 Nucleated Red Blood 0.0 Cells # Medications Medications Current Medications Amlodipine Besylate (Norvasc) 10 mg DAILY PO Last administered on 03/20/19 08:19; Admin Dose 10 MG; Start 03/18/19 at 09:00 Carvedilol (Coreg) 12.5 mg BID PO Last administered on 03/20/19 21:23; Admin Dose 12.5 MG; Start 03/18/19 at 09:00 Ferrous Sulfate (Ferrous Sulfate (Ec)) 325 mg QAM PO Last administered on 03/20/19 08:18; Admin Dose 325 MG; Start 03/18/19 at 09:00 Tamsulosin HCl (Flomax) 0.4 mg HS PO Last administered on 03/20/19 21:22; Admin Dose 0.4 MG; Start 03/18/19 at 21:00 Atorvastatin Calcium (Lipitor) 20 mg HS PO Last administered on 03/20/19 21:22; Admin Dose 20 MG; Start 03/18/19 at 21:00 Insulin Aspart (Novolog Insulin Pen) NOVOLOG *MILD* ALGORITHM WITH MEALS BEDTIME SC Last administered on 03/19/19 17:21; Admin Dose 3 UNIT; Start 03/18/19 at 07:55 Acetaminophen (Tylenol Tab) 500 mg Q4H PRN PO MILD PAIN(1-3)OR ELEVATED TEMP; Start 03/17/19 at 23:30 Aspirin (Halfprin) 81 mg DAILY PO Last administered on 03/20/19 08:19; Admin Dose 81 MG; Start 03/18/19 at 09:00 Senna/Docusate Sodium (Senokot-S) 2 tab BID PO Last administered on 03/20/19 21:25; Admin Dose 2 TAB; Start 03/18/19 at 09:00 Furosemide (Lasix) 40 mg DAILY IV Last administered on 03/20/19 08:18; Admin Dose 40 MG; Start 03/18/19 at 09:00 Nitroglycerin (Nitroglycerin (Sl Tab) 0.4 Mg) 1 tab Q5M PRN SL ANGINA; Start 03/17/19 at 23:30 Miscellaneous Information 1 ea NOTE XX ; Start 03/17/19 at 23:25 Glucose (Glutose) 15 gm Q15M PRN PO DECREASED GLUCOSE; Start 03/17/19 at 23:25 Glucose (Glutose) 22.5 gm Q15M PRN PO DECREASED GLUCOSE; Start 03/17/19 at 23:25 Dextrose (D50w Syringe) 25 ml Q15M PRN IV DECREASED GLUCOSE; Start 03/17/19 at 23:25 Dextrose (D50w Syringe) 50 ml Q15M PRN IV DECREASED GLUCOSE; Start 03/17/19 at 23:25 Glucagon (Glucagen) 1 mg Q15M PRN IM DECREASED GLUCOSE; Start 03/17/19 at 23:25 Glucose (Glutose) 15 gm Q15M PRN BUCCAL DECREASED GLUCOSE; Start 03/17/19 at 23:25 Apixaban (Eliquis) 2.5 mg BID PO Last administered on 03/20/19at 21:22; Admin Dose 2.5 MG; Start 03/19/19 at 21:00 Hydralazine HCl (Apresoline) 10 mg Q4H PRN IV SBP more than 150 mm hg ; Start 03/19/19 at 20:00 ABRAHAN YOUNG Mar 21, 2019 07:07
[2019-03-21] MEDS: INSULIN ASPART [NOVOLOG] 3 ML PEN SC SCH ×4 (07:37→21:00)
--- NOTE | 2019-03-21 08:02 | PN ---
Date/Time of Note Date/Time of Note DATE: 03/21/19 TIME: 08:01 Assessment/Plan VTE Prophylaxis Risk score (from [facility] [place])>0 risk: 6 SCD applied (from [facility] [place]): Yes SCD contraindicated: other Pharmacological prophylaxis: other Pharm contraindication: other Lines/Catheters IV [facility] Type [facility] Saline Lock Urinary Cath still in place: No Assessment/Plan Assessment/Plan -Chest pain, rule out acute coronary syndrome, will obtain cardiac enzymes q. 8 hours x 3, 2D echo. Dr. Cortez is asked to see patient in cardiology consultation. 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 - Dr. Johnson is following in nephrology consultation. -Systolic congestive heart failure. -Atrial fibrillation. Continue aspirin. -Hypertension. -CAD, hx of [place]. -Diabetes mellitus type 2 -History of stroke with right-sided weakness. -Hx of TURP Further recommendations based on clinical course. Plan of care discussed with Dr. Hood. Result Diagram: 03/21/19 0533 03/21/19 0533 Results 24hrs Laboratory Tests Test 03/20/19 12:12 03/20/19 17:19 03/20/19 21:18 03/21/19 05:33 Bedside Glucose 99 95 171 White Blood Count 4.7 L Red Blood Count 3.48 L Hemoglobin 10.3 L Hematocrit 31.8 L Mean Corpuscular Volume 91.4 Mean Corpuscular 29.6 Hemoglobin Mean Corpuscular 32.4 Hemoglobin Concent Red Cell Distribution 12.2 Width Platelet Count 266 # Mean Platelet Volume 9.8 Immature Granulocytes % 0.200 Neutrophils % 55.1 Lymphocytes % 27.5 Monocytes % 12.7 H Eosinophils % 3.9 Basophils % 0.6 Nucleated Red Blood 0.0 Cells % Immature Granulocytes # 0.010 Neutrophils # 2.6 Lymphocytes # 1.3 Monocytes # 0.6 Eosinophils # 0.2 Basophils # 0.0 Nucleated Red Blood 0.0 Cells # Sodium Level 137 Potassium Level 4.2 Chloride Level 103 Carbon Dioxide Level 24 Anion Gap 10 Blood Urea Nitrogen 64 H Creatinine 4.40 H Est Glomerular Filtrat Rate mL/min Glucose Level 104 Calcium Level 9.0 Test 03/21/19 07:36 Bedside Glucose 108 Subjective 24 Hr Interval Summary Free Text/Dictation Cr elevated- Dr Johnson notified; Lasix changed to20 mg IV BID will fu renal functions afebrile no events reported last night dw staff Eyes: no complaints ENT: no complaints Respiratory: no complaints Cardiovascular: no complaints Gastrointestinal: no complaints Genitourinary: no complaints Musculoskeletal: no complaints Skin: no complaints Neurologic: no complaints Endocrine: no complaints Lymphatic: no complaints Psychological: nl mood/affect Immunologic: no complaints Exam/Review of Systems Exam Vitals Vital Signs Date Temp Pulse Resp B/P (MAP) Pulse Ox O2 O2 Flow FiO2 Time Delivery Rate 03/21/19 98.0 75 16 135/81 97 07:13 (99) 03/20/19 Nasal 2.0 20:00 Cannula Intake and Output 03/20/19 03/20/19 03/21/19 1515:00 23:00 07:00 IntakeIntake Total 800 ml 300 ml OutputOutput Total 900 ml BalanceBalance 800 ml -600 ml Constitutional: alert, well developed Psych: nl mood/affect Head: atraumatic Eyes: nl lids, nl sclera ENMT: nl external ears & nose Neck: non-tender Respiratory: clear to auscultation Cardiovascular: nl pulses, other (s1s2) Gastrointestinal: soft Musculoskeletal: nl extremities to inspection Extremities: normal pulses, other (s1s2) Neurological: nl speech, other (alert/responsive) Lymph: nontender Results Results 24hrs Laboratory Tests Test 03/20/19 12:12 03/20/19 17:19 03/20/19 21:18 03/21/19 05:33 Bedside Glucose 99 95 171 White Blood Count 4.7 L Red Blood Count 3.48 L Hemoglobin 10.3 L Hematocrit 31.8 L Mean Corpuscular Volume 91.4 Mean Corpuscular 29.6 Hemoglobin Mean Corpuscular 32.4 Hemoglobin Concent Red Cell Distribution 12.2 Width Platelet Count 266 # Mean Platelet Volume 9.8 Immature Granulocytes % 0.200 Neutrophils % 55.1 Lymphocytes % 27.5 Monocytes % 12.7 H Eosinophils % 3.9 Basophils % 0.6 Nucleated Red Blood 0.0 Cells % Immature Granulocytes # 0.010 Neutrophils # 2.6 Lymphocytes # 1.3 Monocytes # 0.6 Eosinophils # 0.2 Basophils # 0.0 Nucleated Red Blood 0.0 Cells # Sodium Level 137 Potassium Level 4.2 Chloride Level 103 Carbon Dioxide Level 24 Anion Gap 10 Blood Urea Nitrogen 64 H Creatinine 4.40 H Est Glomerular Filtrat Rate mL/min Glucose Level 104 Calcium Level 9.0 Test 03/21/19 07:36 Bedside Glucose 108 Medications Medication Current Medications Amlodipine Besylate (Norvasc) 10 mg DAILY PO Last administered on 03/20/19 08:19; Admin Dose 10 MG; Start 03/18/19 at 09:00 Carvedilol (Coreg) 12.5 mg BID PO Last administered on 03/20/19 21:23; Admin Dose 12.5 MG; Start 03/18/19 at 09:00 Ferrous Sulfate (Ferrous Sulfate (Ec)) 325 mg QAM PO Last administered on 03/20/19 08:18; Admin Dose 325 MG; Start 03/18/19 at 09:00 Tamsulosin HCl (Flomax) 0.4 mg HS PO Last administered on 03/20/19 21:22; Admin Dose 0.4 MG; Start 03/18/19 at 21:00 Atorvastatin Calcium (Lipitor) 20 mg HS PO Last administered on 03/20/19 21:22; Admin Dose 20 MG; Start 03/18/19 at 21:00 Insulin Aspart (Novolog Insulin Pen) NOVOLOG *MILD* ALGORITHM WITH MEALS BEDTIME SC Last administered on 03/19/19 17:21; Admin Dose 3 UNIT; Start 03/18/19 at 07:55 Acetaminophen (Tylenol Tab) 500 mg Q4H PRN PO MILD PAIN(1-3)OR ELEVATED TEMP; Start 03/17/19 at 23:30 Aspirin (Halfprin) 81 mg DAILY PO Last administered on 03/20/19 08:19; Admin Dose 81 MG; Start 03/18/19 at 09:00 Senna/Docusate Sodium (Senokot-S) 2 tab BID PO Last administered on 03/20/19 2 1:25; Admin Dose 2 TAB; Start 03/18/19 at 09:00 Furosemide (Lasix) 40 mg DAILY IV Last administered on 03/20/19 08:18; Admin Dose 40 MG; Start 03/18/19 at 09:00 Nitroglycerin (Nitroglycerin (Sl Tab) 0.4 Mg) 1 tab Q5M PRN SL ANGINA; Start 03/17/19 at 23:30 Miscellaneous Information 1 ea NOTE XX ; Start 6/5/19 at 23:25 Glucose (Glutose) 15 gm Q15M PRN PO DECREASED GLUCOSE; Start 03/17/19 at 23:25 Glucose (Glutose) 22.5 gm Q15M PRN PO DECREASED GLUCOSE; Start 03/17/19 at 23:25 Dextrose (D50w Syringe) 25 ml Q15M PRN IV DECREASED GLUCOSE; Start 03/17/19 at 23:25 Dextrose (D50w Syringe) 50 ml Q15M PRN IV DECREASED GLUCOSE; Start 03/17/19 at 23:25 Glucagon (Glucagen) 1 mg Q15M PRN IM DECREASED GLUCOSE; Start 03/17/19 at 23:25 Glucose (Glutose) 15 gm Q15M PRN BUCCAL DECREASED GLUCOSE; Start 03/17/19 at 23:25 Apixaban (Eliquis) 2.5 mg BID PO Last administered on 03/20/19at 21:22; Admin Dose 2.5 MG; Start 03/19/19 at 21:00 Hydralazine HCl (Apresoline) 10 mg Q4H PRN IV SBP more than 150 mm hg ; Start 03/19/19 at 20:00 EVERARDO OLIVEROS Mar 21, 2019 08:02
[2019-03-21] MEDS: AMLODIPINE 10 MG TAB PO SCH (08:40)
[2019-03-21] MEDS: APIXABAN 5 MG TABLET PO SCH ×2 (08:41→21:44)
[2019-03-21] MEDS: ASPIRIN (EC) 81 MG TAB PO SCH (08:41)
[2019-03-21] MEDS: FERROUS SULFATE (EC) 325 MG TAB PO SCH (08:41)
[2019-03-21] MEDS: FUROSEMIDE 20 MG INJ IV SCH ×2 (08:42→17:19)
[2019-03-21] MEDS: SENNA/DOCUSATE NA (8.6MG/50MG) TAB PO SCH ×2 (08:48→21:44)
--- NOTE | 2019-03-21 16:52 | CONS ---
Assessment/Plan Assessment/Plan Assessment/Plan (Daily) 1. 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 H/o CKD III/IV diabetic nephropathy 3. Acute decompensated diastolic congestive heart failure 4. H/o Atrial fibrillation with controlled ventricular rates 5. H/o Hypertension 6. H/o Diabetes Type II, Poorly controlled 7. H/o Dyslipidemia 8. H/o BPH On Flomax ,s/P TURP in 07/2018 Plan: ECHO showed RSVP 60 mm Hg, EF 55%, abnormal diastolic function - BUN/Cr 58/4.3- on lasix 40mg IV daily for diuresis BUN/Cr 64/4.4- Conitnue lasix 20mg IV BID no ACEI/ARB due to HARMONY on CKD IV Amlodipine 10mg po daily and Coreg 12.5 mg pO BID for HTN control , IV hydralazine prn Flomax for BPH will order Renal US to assess for CKD, to rule out hydronephrosis will follow up Consultation Date/Type/Reason Admit Date/Time Mar 17, 2019 at 17:29 Initial Consult Date 03/18/19 Type of Consult NEPHROLOGY Requesting Provider: MONTY LENNON MD Date/Time of Note DATE: 03/21/19 TIME: 16:52 24 HR Interval Summary Free Text/Dictation BUn/cr still high 64/4.4 Exam/Review of Systems Exam Vitals Vital Signs Date Temp Pulse Resp B/P (MAP) Pulse Ox O2 O2 Flow FiO2 Time Delivery Rate 03/21/19 98.2 67 16 130/79 96 15:06 (96) 03/21/19 Nasal 2.0 08:48 Cannula Intake and Output 03/20/19 03/20/19 03/21/19 1515:00 23:00 07:00 IntakeIntake Total 800 ml 300 ml OutputOutput Total 900 ml BalanceBalance 800 ml -600 ml Exam Constitutional: alert Eyes: nl conjunctiva ENMT: nl external ears & nose Neck: supple, non-tender Respiratory: clear to auscultation, normal air movement, diminished breath sounds Cardiovascular: regular rate and rhythm, nl pulses Gastrointestinal: soft, non-tender Extremities: normal pulses Neurological: DOUGHNUT DOUGH MIXER II-XII intact, nl mental status, nl speech, nl strength Lymph: nl lymph nodes Results Result Diagram: 03/21/1953203/21/19532 Results 24hrs Laboratory Tests Test 03/20/19 17:19 03/20/19 21:18 03/21/19 05:33 03/21/19 07:36 Bedside Glucose 95 171 108 White Blood Count 4.7 L Red Blood Count 3.48 L Hemoglobin 10.3 L Hematocrit 31.8 L Mean Corpuscular Volume 91.4 Mean Corpuscular 29.6 Hemoglobin Mean Corpuscular 32.4 Hemoglobin Concent Red Cell Distribution 12.2 Width Platelet Count 266 # Mean Platelet Volume 9.8 Immature Granulocytes % 0.200 Neutrophils % 55.1 Lymphocytes % 27.5 Monocytes % 12.7 H Eosinophils % 3.9 Basophils % 0.6 Nucleated Red Blood 0.0 Cells % Immature Granulocytes # 0.010 Neutrophils # 2.6 Lymphocytes # 1.3 Monocytes # 0.6 Eosinophils # 0.2 Basophils # 0.0 Nucleated Red Blood 0.0 Cells # Sodium Level 137 Potassium Level 4.2 Chloride Level 103 Carbon Dioxide Level 24 Anion Gap 10 Blood Urea Nitrogen 64 H Creatinine 4.40 H Est Glomerular Filtrat Rate mL/min Glucose Level 104 Calcium Level 9.0 Test 03/21/19 11:44 Bedside Glucose 111 Medications Medication Current Medications Amlodipine Besylate (Norvasc) 10 mg DAILY PO Last administered on 03/21/19 08:40; Admin Dose 10 MG; Start 03/18/19 at 09:00 Carvedilol (Coreg) 12.5 mg BID PO Last administered on 03/21/19 08:41; Admin Dose 12.5 MG; Start 03/18/19 at 09:00 Ferrous Sulfate (Ferrous Sulfate (Ec)) 325 mg QAM PO Last administered on 03/21/19 08:41; Admin Dose 325 MG; Start 03/18/19 at 09:00 Tamsulosin HCl (Flomax) 0.4 mg HS PO Last administered on 03/20/19 21:22; Admin Dose 0.4 MG; Start 03/18/19 at 21:00 Atorvastatin Calcium (Lipitor) 20 mg HS PO Last administered on 03/20/19 21:22; Admin Dose 20 MG; Start 03/18/19 at 21:00 Insulin Aspart (Novolog Insulin Pen) NOVOLOG *MILD* ALGORITHM WITH MEALS BEDTIME SC Last administered on 03/19/19 17:21; Admin Dose 3 UNIT; Start 03/18/19 at 07:55 Acetaminophen (Tylenol Tab) 500 mg Q4H PRN PO MILD PAIN(1-3)OR ELEVATED TEMP; Start 03/17/19 at 23:30 Aspirin (Halfprin) 81 mg DAILY PO Last administered on 03/21/19at 08:41; Admin Dose 81 MG; Start 03/18/19 at 09:00 Senna/Docusate Sodium (Senokot-S) 2 tab BID PO Last administered on 03/20/19at 21:25; Admin Dose 2 TAB; Start 03/18/19 at 09:00 Nitroglycerin (Nitroglycerin (Sl Tab) 0.4 Mg) 1 tab Q5M PRN SL ANGINA; Start 03/17/19 at 23:30 Miscellaneous Information 1 ea NOTE XX ; Start 03/17/19 at 23:25 Glucose (Glutose) 15 gm Q15M PRN PO DECREASED GLUCOSE; Start 03/17/19 at 23:25 Glucose (Glutose) 22.5 gm Q15M PRN PO DECREASED GLUCOSE; Start 03/17/19 at 23:25 Dextrose (D50w Syringe) 25 ml Q15M PRN IV DECREASED GLUCOSE; Start 03/17/19 at 23:25 Dextrose (D50w Syringe) 50 ml Q15M PRN IV DECREASED GLUCOSE; Start 03/17/19 at 23:25 Glucagon (Glucagen) 1 mg Q15M PRN IM DECREASED GLUCOSE; Start 03/17/19 at 23:25 Glucose (Glutose) 15 gm Q15M PRN BUCCAL DECREASED GLUCOSE; Start 03/17/19 at 23:25 Apixaban (Eliquis) 2.5 mg BID PO Last administered on 03/21/19at 08:41; Admin Dose 2.5 MG; Start 03/19/19 at 21:00 Hydralazine HCl (Apresoline) 10 mg Q4H PRN IV SBP more than 150 mm hg ; Start 03/19/19 at 20:00 Furosemide (Lasix) 20 mg BID DIURETICS IV Last administered on 03/21/19at 08:42; Admin Dose 20 MG; Start 03/21/19 at 08:45 NATHANAEL MULLER MD Mar 21, 2019 16:52
[2019-03-21] MEDS: ATORVASTATIN 20 MG TAB PO SCH (21:44)
[2019-03-21] MEDS: TAMSULOSIN (SR) 0.4 MG CAP PO SCH (21:44)
[2019-03-22] VITALS (11 sets, daily range): BP systolic 131–140; BP diastolic 73–84; PULSE 59–89; RESP 18–20
[2019-03-22] MEDS: FUROSEMIDE 20 MG INJ IV SCH (05:50)
--- NOTE | 2019-03-22 07:47 | CONS ---
Assessment/Plan Assessment/Plan Assessment/Plan (Daily) Chest pain, resolved, negative troponins Acute decompensated diastolic congestive heart failure, improved Chronic atrial fibrillation, on Eliquis, rate controlled Hypertension, controlled Diabetes Dyslipidemia Plan: no change in cardiac regimen Consultation Date/Type/Reason Admit Date/Time Mar 17, 2019 at 17:29 Initial Consult Date 03/18/19 Type of Consult Cardiology Requesting Provider: MONTY LENNON MD Date/Time of Note DATE: 03/22/19 TIME: 07:46 24 HR Interval Summary Free Text/Dictation no chest pain, no sob, no palpitations Detailed Summary Respiratory: no complaints Cardiovascular: no complaints Gastrointestinal: no complaints Musculoskeletal: no complaints Skin: no complaints Neurologic: no complaints Exam/Review of Systems Vital Signs Vitals Vital Signs Date Temp Pulse Resp B/P (MAP) Pulse Ox O2 O2 Flow FiO2 Time Delivery Rate 03/22/19 97.8 69 20 133/82 95 Nasal 07:34 (99) Cannula 03/21/19 2.0 20:00 Intake and Output 03/21/19 03/21/19 03/22/19 1515:00 23:00 07:00 IntakeIntake Total 750 ml 400 ml OutputOutput Total 640 ml 800 ml BalanceBalance 110 ml -400 ml Exam Constitutional: alert, oriented Head: normocephalic, atraumatic Neck: supple Respiratory: clear to auscultation Cardiovascular: regular rate and rhythm Gastrointestinal: soft Musculoskeletal: nl extremities to inspection Extremities: normal pulses Labs Result Diagram: 03/21/19 0533 03/21/19 0533 Results 24hrs Laboratory Tests Test 03/21/19 11:44 03/21/19 17:18 03/21/19 21:42 Bedside Glucose 111 97 98 Medications Medications Current Medications Amlodipine Besylate (Norvasc) 10 mg DAILY PO Last administered on 03/21/19at 08:40; Admin Dose 10 MG; Start 03/18/19 at 09:00 Carvedilol (Coreg) 12.5 mg BID PO Last administered on 03/21/19at 21:45; Admin Dose 12.5 MG; Start 03/18/19 at 09:00 Ferrous Sulfate (Ferrous Sulfate (Ec)) 325 mg QAM PO Last administered on 03/21/19at 08:41; Admin Dose 325 MG; Start 03/18/19 at 09:00 Tamsulosin HCl (Flomax) 0.4 mg HS PO Last administered on 03/21/19 21:44; Admin Dose 0.4 MG; Start 03/18/19 at 21:00 Atorvastatin Calcium (Lipitor) 20 mg HS PO Last administered on 03/21/19 21:44; Admin Dose 20 MG; Start 03/18/19 at 21:00 Insulin Aspart (Novolog Insulin Pen) NOVOLOG *MILD* ALGORITHM WITH MEALS BEDTIME SC Last administered on 03/19/19at 17:21; Admin Dose 3 UNIT; Start 03/18/19 at 07:55 Acetaminophen (Tylenol Tab) 500 mg Q4H PRN PO MILD PAIN(1-3)OR ELEVATED TEMP; Start 03/17/19 at 23:30 Aspirin (Halfprin) 81 mg DAILY PO Last administered on 03/21/19 08:41; Admin Dose 81 MG; Start 03/18/19 at 09:00 Senna/Docusate Sodium (Senokot-S) 2 tab BID PO Last administered on 03/21/19 21:44; Admin Dose 2 TAB; Start 03/18/19 at 09:00 Nitroglycerin (Nitroglycerin (Sl Tab) 0.4 Mg) 1 tab Q5M PRN SL ANGINA; Start 03/17/19 at 23:30 Miscellaneous Information 1 ea NOTE XX ; Start 03/17/19 at 23:25 Glucose (Glutose) 15 gm Q15M PRN PO DECREASED GLUCOSE; Start 03/17/19 at 23:25 Glucose (Glutose) 22.5 gm Q15M PRN PO DECREASED GLUCOSE; Start 03/17/19 at 23:25 Dextrose (D50w Syringe) 25 ml Q15M PRN IV DECREASED GLUCOSE; Start 03/17/19 at 23:25 Dextrose (D50w Syringe) 50 ml Q15M PRN IV DECREASED GLUCOSE; Start 03/17/19 at 23:25 Glucagon (Glucagen) 1 mg Q15M PRN IM DECREASED GLUCOSE; Start 03/17/19 at 23:25 Glucose (Glutose) 15 gm Q15M PRN BUCCAL DECREASED GLUCOSE; Start 03/17/19 at 23:25 Apixaban (Eliquis) 2.5 mg BID PO Last administered on 03/21/19 21:44; Admin Dose 2.5 MG; Start 03/19/19 at 21:00 Hydralazine HCl (Apresoline) 10 mg Q4H PRN IV SBP more than 150 mm hg ; Start 03/19/19 at 20:00 Furosemide (Lasix) 20 mg BID DIURETICS IV Last administered on 03/22/19at 05:50; Admin Dose 20 MG; Start 03/21/19 at 08:45 GRAYSON MART MD Mar 22, 2019 07:47
[2019-03-22] MEDS: INSULIN ASPART [NOVOLOG] 3 ML PEN SC SCH ×4 (07:55→21:00)
[2019-03-22] MEDS: SENNA/DOCUSATE NA (8.6MG/50MG) TAB PO SCH ×2 (09:56→21:22)
[2019-03-22] MEDS: FERROUS SULFATE (EC) 325 MG TAB PO SCH (09:57)
[2019-03-22] MEDS: ASPIRIN (EC) 81 MG TAB PO SCH (09:58)
[2019-03-22] MEDS: AMLODIPINE 10 MG TAB PO SCH (09:58)
[2019-03-22] MEDS: APIXABAN 5 MG TABLET PO SCH ×2 (09:58→21:22)
--- NOTE | 2019-03-22 11:24 | CONS ---
Assessment/Plan Assessment/Plan Assessment/Plan (Daily) 1. 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 H/o CKD III/IV diabetic nephropathy 3. Acute decompensated diastolic congestive heart failure 4. H/o Atrial fibrillation with controlled ventricular rates 5. H/o Hypertension 6. H/o Diabetes Type II, Poorly controlled 7. H/o Dyslipidemia 8. H/o BPH On Flomax ,s/P TURP in 07/2018 Plan: ECHO showed RSVP 60 mm Hg, EF 55%, abnormal diastolic function cardiology Dr. Cortez following no ACEI/ARB due to HARMONY on CKD IV, BUN/Cr still high 71/4.4- change lasix to 20mg PO BID Amlodipine 10mg po daily and Coreg 12.5 mg pO BID for HTN control , IV hydralazine prn Flomax for BPH Renal US showed Echogenic kidneys, consistent with medical renal disease.,right kidney measures 9.0 cm.Left kidney measures 8.1 cm. There are multiple simple cysts in the left kidney, the largest measuring 3.4 cm. will follow up Consultation Date/Type/Reason Admit Date/Time Mar 17, 2019 at 17:29 Initial Consult Date 03/18/19 Type of Consult NEPHROLOGY Requesting Provider: MONTY LENNON MD Date/Time of Note DATE: 03/22/19 TIME: 11:24 Exam/Review of Systems Exam Vitals Vital Signs Date Temp Pulse Resp B/P (MAP) Pulse Ox O2 O2 Flow FiO2 Time Delivery Rate 03/22/19 87 08:35 03/22/19 97.8 20 133/82 95 Nasal 07:34 (99) Cannula 03/21/19 2.0 20:00 Intake and Output 03/21/19 03/21/19 03/22/19 1515:00 23:00 07:00 IntakeIntake Total 750 ml 400 ml OutputOutput Total 640 ml 800 ml BalanceBalance 110 ml -400 ml Results Result Diagram: 03/22/19 0744 03/22/19 0744 Results 24hrs Laboratory Tests Test 03/21/19 11:44 03/21/19 17:18 03/21/19 21:42 03/22/19 07:44 Bedside Glucose 111 97 98 White Blood Count 5.1 Red Blood Count 4.06 L Hemoglobin 12.1 L Hematocrit 37.0 L Mean Corpuscular 91.1 Volume Mean Corpuscular 29.8 Hemoglobin Mean Corpuscular 32.7 Hemoglobin Concent Red Cell Distribution 12.3 Width Platelet Count 322 # Mean Platelet Volume 9.9 Immature Granulocytes 0.400 % Neutrophils % 62.9 Lymphocytes % 23.8 Monocytes % 9.0 Eosinophils % 3.1 Basophils % 0.8 Nucleated Red Blood 0.0 Cells % Immature Granulocytes 0.020 # Neutrophils # 3.2 Lymphocytes # 1.2 Monocytes # 0.5 Eosinophils # 0.2 Basophils # 0.0 Nucleated Red Blood 0.0 Cells # Sodium Level 139 Potassium Level 4.1 Chloride Level 101 Carbon Dioxide Level 23 Anion Gap 15 H Blood Urea Nitrogen 71 H Creatinine 4.44 H Est Glomerular Filtrat Rate mL/min Glucose Level 111 Calcium Level 9.2 Test 03/22/19 08:28 Bedside Glucose 118 Medications Medication Current Medications Amlodipine Besylate (Norvasc) 10 mg DAILY PO Last administered on 03/22/19 09:58; Admin Dose 10 MG; Start 03/18/19 at 09:00 Carvedilol (Coreg) 12.5 mg BID PO Last administered on 03/22/19 09:57; Admin Dose 12.5 MG; Start 03/18/19 at 09:00 Ferrous Sulfate (Ferrous Sulfate (Ec)) 325 mg QAM PO Last administered on 03/22/19 09:57; Admin Dose 325 MG; Start 03/18/19 at 09:00 Tamsulosin HCl (Flomax) 0.4 mg HS PO Last administered on 03/21/19 21:44; Admin Dose 0.4 MG; Start 03/18/19 at 21:00 Atorvastatin Calcium (Lipitor) 20 mg HS PO Last administered on 03/21/19 21:44; Admin Dose 20 MG; Start 03/18/19 at 21:00 Insulin Aspart (Novolog Insulin Pen) NOVOLOG *MILD* ALGORITHM WITH MEALS BEDTIME SC Last administered on 03/19/19 17:21; Admin Dose 3 UNIT; Start 03/18/19 at 07:55 Acetaminophen (Tylenol Tab) 500 mg Q4H PRN PO MILD PAIN(1-3)OR ELEVATED TEMP; Start 03/17/19 at 23:30 Aspirin (Halfprin) 81 mg DAILY PO Last administered on 03/22/19 09:58; Admin Dose 81 MG; Start 03/18/19 at 09:00 Senna/Docusate Sodium (Senokot-S) 2 tab BID PO Last administered on 03/22/19at 09:56; Admin Dose 2 TAB; Start 03/18/19 at 09:00 Nitroglycerin (Nitroglycerin (Sl Tab) 0.4 Mg) 1 tab Q5M PRN SL ANGINA; Start 03/17/19 at 23:30 Miscellaneous Information 1 ea NOTE XX ; Start 03/17/19 at 23:25 Glucose (Glutose) 15 gm Q15M PRN PO DECREASED GLUCOSE; Start 03/17/19 at 23:25 Glucose (Glutose) 22.5 gm Q15M PRN PO DECREASED GLUCOSE; Start 03/17/19 at 23:25 Dextrose (D50w Syringe) 25 ml Q15M PRN IV DECREASED GLUCOSE; Start 03/17/19 at 23:25 Dextrose (D50w Syringe) 50 ml Q15M PRN IV DECREASED GLUCOSE; Start 03/17/19 at 23:25 Glucagon (Glucagen) 1 mg Q15M PRN IM DECREASED GLUCOSE; Start 03/17/19 at 23:25 Glucose (Glutose) 15 gm Q15M PRN BUCCAL DECREASED GLUCOSE; Start 03/17/19 at 23:25 Apixaban (Eliquis) 2.5 mg BID PO Last administered on 03/22/19at 09:58; Admin Dose 2.5 MG; Start 03/19/19 at 21:00 Hydralazine HCl (Apresoline) 10 mg Q4H PRN IV SBP more than 150 mm hg ; Start 03/19/19 at 20:00 Furosemide (Lasix) 20 mg BID DIURETICS IV Last administered on 03/22/19at 05:50; Admin Dose 20 MG; Start 03/21/19 at 08:45 NATHANAEL MULLER MD Mar 22, 2019 11:24
--- NOTE | 2019-03-22 15:53 | PN ---
Date/Time of Note Date/Time of Note DATE: 03/22/19 TIME: 15:47 Assessment/Plan VTE Prophylaxis Risk score (from Ns)>0 risk: 6 SCD applied (from Ns): Yes Pharmacological prophylaxis: apixaban Lines/Catheters IV [facility]from [facility] Urinary Cath still in place: No Assessment/Plan Hospital Course Patient is awake alert, denies any chest pain or SOB at rest. A-fib at controlled rate, continue tele, will obtain PT eval. Assessment/Plan -Chest pain, rule out acute coronary syndrome, troponin is negative x 3, 2D echo with preserved ejection fraction of 55%. Dr. Cortez is following in cardiology consultation. -Acute decompensated diastolic congestive heart failure. 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 Dr. Johnson is following in nephrology consultation. -Atrial fibrillation. Continue aspirin. -Hypertension. -CAD, hx of SC. -Diabetes mellitus type 2 -History of stroke with right-sided weakness. -Hx of TURP Further recommendations based on clinical course. Plan of care discussed with Dr. Hood. Result Diagram: 03/22/19 0744 03/22/19 0744 Results 24hrs Laboratory Tests Test 03/21/19 17:18 03/21/19 21:42 03/22/19 07:44 03/22/19 08:28 Bedside Glucose 97 98 118 White Blood Count 5.1 Red Blood Count 4.06 L Hemoglobin 12.1 L Hematocrit 37.0 L Mean Corpuscular 91.1 Volume Mean Corpuscular 29.8 Hemoglobin Mean Corpuscular 32.7 Hemoglobin Concent Red Cell Distribution 12.3 Width Platelet Count 322 # Mean Platelet Volume 9.9 Immature Granulocytes 0.400 % Neutrophils % 62.9 Lymphocytes % 23.8 Monocytes % 9.0 Eosinophils % 3.1 Basophils % 0.8 Nucleated Red Blood 0.0 Cells % Immature Granulocytes 0.020 # Neutrophils # 3.2 Lymphocytes # 1.2 Monocytes # 0.5 Eosinophils # 0.2 Basophils # 0.0 Nucleated Red Blood 0.0 Cells # Sodium Level 139 Potassium Level 4.1 Chloride Level 101 Carbon Dioxide Level 23 Anion Gap 15 H Blood Urea Nitrogen 71 H Creatinine 4.44 H Est Glomerular Filtrat Rate mL/min Glucose Level 111 Calcium Level 9.2 Test 03/22/19 13:01 Bedside Glucose 112 Exam/Review of Systems Exam Vitals Vital Signs Date Temp Pulse Resp B/P (MAP) Pulse Ox O2 O2 Flow FiO2 Time Delivery Rate 03/22/19 98.4 60 20 140/81 92 15:08 (100) 03/22/19 Nasal 11:47 Cannula 03/22/19 2.0 08:34 Intake and Output 03/21/19 03/21/19 03/22/19 1515:00 23:00 07:00 IntakeIntake Total 750 ml 400 ml OutputOutput Total 640 ml 800 ml BalanceBalance 110 ml -400 ml Exam Constitutional: alert, oriented Respiratory: diminished breath sounds Cardiovascular: irregular rhythm Gastrointestinal: soft, non-tender Musculoskeletal: nl extremities to inspection Extremities: normal pulses Results Results 24hrs Laboratory Tests Test 03/21/19 17:18 03/21/19 21:42 03/22/19 07:44 03/22/19 08:28 Bedside Glucose 97 98 118 White Blood Count 5.1 Red Blood Count 4.06 L Hemoglobin 12.1 L Hematocrit 37.0 L Mean Corpuscular 91.1 Volume Mean Corpuscular 29.8 Hemoglobin Mean Corpuscular 32.7 Hemoglobin Concent Red Cell Distribution 12.3 Width Platelet Count 322 # Mean Platelet Volume 9.9 Immature Granulocytes 0.400 % Neutrophils % 62.9 Lymphocytes % 23.8 Monocytes % 9.0 Eosinophils % 3.1 Basophils % 0.8 Nucleated Red Blood 0.0 Cells % Immature Granulocytes 0.020 # Neutrophils # 3.2 Lymphocytes # 1.2 Monocytes # 0.5 Eosinophils # 0.2 Basophils # 0.0 Nucleated Red Blood 0.0 Cells # Sodium Level 139 Potassium Level 4.1 Chloride Level 101 Carbon Dioxide Level 23 Anion Gap 15 H Blood Urea Nitrogen 71 H Creatinine 4.44 H Est Glomerular Filtrat Rate mL/min Glucose Level 111 Calcium Level 9.2 Test 03/22/19 13:01 Bedside Glucose 112 Medications Medication Current Medications Amlodipine Besylate (Norvasc) 10 mg DAILY PO Last administered on 03/22/19at 09:58; Admin Dose 10 MG; Start 03/18/19 at 09:00 Carvedilol (Coreg) 12.5 mg BID PO Last administered on 03/22/19at 09:57; Admin Dose 12.5 MG; Start 03/18/19 at 09:00 Ferrous Sulfate (Ferrous Sulfate (Ec)) 325 mg QAM PO Last administered on 03/22/19 09:57; Admin Dose 325 MG; Start 03/18/19 at 09:00 Tamsulosin HCl (Flomax) 0.4 mg HS PO Last administered on 03/21/19 21:44; Admin Dose 0.4 MG; Start 03/18/19 at 21:00 Atorvastatin Calcium (Lipitor) 20 mg HS PO Last administered on 03/21/19 21:44; Admin Dose 20 MG; Start 03/18/19 at 21:00 Insulin Aspart (Novolog Insulin Pen) NOVOLOG *MILD* ALGORITHM WITH MEALS BEDTIME SC Last administered on 03/19/19 17:21; Admin Dose 3 UNIT; Start 03/18/19 at 07:55 Acetaminophen (Tylenol Tab) 500 mg Q4H PRN PO MILD PAIN(1-3)OR ELEVATED TEMP; Start 03/17/19 at 23:30 Aspirin (Halfprin) 81 mg DAILY PO Last administered on 03/22/19 09:58; Admin Dose 81 MG; Start 03/18/19 at 09:00 Senna/Docusate Sodium (Senokot-S) 2 tab BID PO Last administered on 03/22/19 09:56; Admin Dose 2 TAB; Start 03/18/19 at 09:00 Nitroglycerin (Nitroglycerin (Sl Tab) 0.4 Mg) 1 tab Q5M PRN SL ANGINA; Start 03/17/19 at 23:30 Miscellaneous Information 1 ea NOTE XX ; Start 03/17/19 at 23:25 Glucose (Glutose) 15 gm Q15M PRN PO DECREASED GLUCOSE; Start 03/17/19 at 23:25 Glucose (Glutose) 22.5 gm Q15M PRN PO DECREASED GLUCOSE; Start 03/17/19 at 23:25 Dextrose (D50w Syringe) 25 ml Q15M PRN IV DECREASED GLUCOSE; Start 03/17/19 at 23:25 Dextrose (D50w Syringe) 50 ml Q15M PRN IV DECREASED GLUCOSE; Start 03/17/19 at 23:25 Glucagon (Glucagen) 1 mg Q15M PRN IM DECREASED GLUCOSE; Start 03/17/19 at 23:25 Glucose (Glutose) 15 gm Q15M PRN BUCCAL DECREASED GLUCOSE; Start 03/17/19 at 23:25 Apixaban (Eliquis) 2.5 mg BID PO Last administered on 03/22/19at 09:58; Admin Dose 2.5 MG; Start 03/19/19 at 21:00 Hydralazine HCl (Apresoline) 10 mg Q4H PRN IV SBP more than 150 mm hg ; Start 03/19/19 at 20:00 Furosemide (Lasix) 20 mg BID DIURETICS PO ; Start 03/22/19 at 18:00 DEBRA PASTRANA Mar 22, 2019 15:53
[2019-03-22] MEDS: FUROSEMIDE 20 MG TAB PO SCH (19:15)
[2019-03-22] MEDS: ATORVASTATIN 20 MG TAB PO SCH (21:22)
[2019-03-22] MEDS: TAMSULOSIN (SR) 0.4 MG CAP PO SCH (21:22)
[2019-03-23] VITALS (12 sets, daily range): BP systolic 128–157; BP diastolic 71–84; PULSE 52–85; RESP 16–20
[2019-03-23] MEDS: FUROSEMIDE 20 MG TAB PO SCH ×2 (05:36→17:12)
[2019-03-23] MEDS: INSULIN ASPART [NOVOLOG] 3 ML PEN SC SCH ×4 (07:52→20:51)
[2019-03-23] MEDS: SENNA/DOCUSATE NA (8.6MG/50MG) TAB PO SCH ×2 (08:33→20:51)
[2019-03-23] MEDS: APIXABAN 5 MG TABLET PO SCH ×2 (08:33→20:50)
[2019-03-23] MEDS: FERROUS SULFATE (EC) 325 MG TAB PO SCH (08:33)
[2019-03-23] MEDS: AMLODIPINE 10 MG TAB PO SCH (08:33)
[2019-03-23] MEDS: ASPIRIN (EC) 81 MG TAB PO SCH (08:33)
--- NOTE | 2019-03-23 14:41 | PN ---
Date/Time of Note Date/Time of Note DATE: 03/23/19 TIME: 14:38 Assessment/Plan VTE Prophylaxis Risk score (from Ns)>0 risk: 6 SCD applied (from [facility] [place]): Yes Pharmacological prophylaxis: apixaban Lines/Catheters IV Catheter Type (from [facility], [place]): Saline Lock Urinary Cath still in place: No Assessment/Plan Hospital Course No acute events overnight,pending PT eval.pt denies any chest pain or SOB at rest. A-fib at controlled rate. Assessment/Plan -Chest pain, rule out acute coronary syndrome, troponin is negative x 3, 2D echo with preserved ejection fraction of 55%. Dr. Cortez is following in cardiology consultation. -Acute decompensated diastolic congestive heart failure. 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 Dr. Johnson is following in nephrology consultation. -Atrial fibrillation. Continue aspirin. -Hypertension. -CAD, hx of [place]. -Diabetes mellitus type 2 -History of stroke with right-sided weakness. -Hx of TURP Further recommendations based on clinical course. Plan of care discussed with Dr. Hood. Result Diagram: 03/23/1962403/23/1925 Results 24hrs Laboratory Tests Test 03/22/19 21:21 03/23/19 06:25 03/23/19 07:46 03/23/19 11:47 Bedside Glucose 115 112 107 White Blood Count 5.1 Red Blood Count 3.66 L Hemoglobin 11.0 L Hematocrit 33.6 L Mean Corpuscular 91.8 Volume Mean Corpuscular 30.1 Hemoglobin Mean Corpuscular 32.7 Hemoglobin Concent Red Cell 12.0 Distribution Width Platelet Count 278 Mean Platelet Volume 9.4 Immature 0.200 Granulocytes % Neutrophils % 62.0 Lymphocytes % 23.5 Monocytes % 11.0 Eosinophils % 2.9 Basophils % 0.4 Nucleated Red Blood 0.0 Cells % Immature 0.010 Granulocytes # Neutrophils # 3.2 Lymphocytes # 1.2 Monocytes # 0.6 Eosinophils # 0.2 Basophils # 0.0 Nucleated Red Blood 0.0 Cells # Sodium Level 139 Potassium Level 4.2 Chloride Level 104 Carbon Dioxide Level 22 Anion Gap 13 Blood Urea Nitrogen 69 H Creatinine 4.67 H Est Glomerular Filtrat Rate mL/min Glucose Level 117 Calcium Level 8.7 Exam/Review of Systems Exam Vitals Vital Signs Date Temp Pulse Resp B/P (MAP) Pulse Ox O2 O2 Flow FiO2 Time Delivery Rate 03/23/19 63 12:54 03/23/19 98.7 16 140/78 97 11:18 (98) 03/23/19 Nasal 2.0 08:00 Cannula Intake and Output 03/22/19 03/22/19 03/23/19 1515:00 23:00 07:00 IntakeIntake Total 480 ml 400 ml OutputOutput Total 1200 ml 1000 ml BalanceBalance -720 ml -600 ml Exam Constitutional: alert, oriented Respiratory: diminished breath sounds Cardiovascular: irregular rhythm Gastrointestinal: soft, non-tender Musculoskeletal: nl extremities to inspection Extremities: normal pulses Results Results 24hrs Laboratory Tests Test 03/22/19 21:21 03/23/19 06:25 03/23/19 07:46 03/23/19 11:47 Bedside Glucose 115 112 107 White Blood Count 5.1 Red Blood Count 3.66 L Hemoglobin 11.0 L Hematocrit 33.6 L Mean Corpuscular 91.8 Volume Mean Corpuscular 30.1 Hemoglobin Mean Corpuscular 32.7 Hemoglobin Concent Red Cell 12.0 Distribution Width Platelet Count 278 Mean Platelet Volume 9.4 Immature 0.200 Granulocytes % Neutrophils % 62.0 Lymphocytes % 23.5 Monocytes % 11.0 Eosinophils % 2.9 Basophils % 0.4 Nucleated Red Blood 0.0 Cells % Immature 0.010 Granulocytes # Neutrophils # 3.2 Lymphocytes # 1.2 Monocytes # 0.6 Eosinophils # 0.2 Basophils # 0.0 Nucleated Red Blood 0.0 Cells # Sodium Level 139 Potassium Level 4.2 Chloride Level 104 Carbon Dioxide Level 22 Anion Gap 13 Blood Urea Nitrogen 69 H Creatinine 4.67 H Est Glomerular Filtrat Rate mL/min Glucose Level 117 Calcium Level 8.7 Medications Medication Current Medications Amlodipine Besylate (Norvasc) 10 mg DAILY PO Last administered on 03/23/19at 08:33; Admin Dose 10 MG; Start 03/18/19 at 09:00 Carvedilol (Coreg) 12.5 mg BID PO Last administered on 03/23/19at 08:34; Admin Dose 12.5 MG; Start 03/18/19 at 09:00 Ferrous Sulfate (Ferrous Sulfate (Ec)) 325 mg QAM PO Last administered on 08/31at 08:33; Admin Dose 325 MG; Start 03/18/19 at 09:00 Tamsulosin HCl (Flomax) 0.4 mg HS PO Last administered on 03/22/19 21:22; Admin Dose 0.4 MG; Start 03/18/19 at 21:00 Atorvastatin Calcium (Lipitor) 20 mg HS PO Last administered on 03/22/19 21:22; Admin Dose 20 MG; Start 03/18/19 at 21:00 Insulin Aspart (Novolog Insulin Pen) NOVOLOG *MILD* ALGORITHM WITH MEALS BEDTIME SC Last administered on 03/19/19 17:21; Admin Dose 3 UNIT; Start 03/18/19 at 07:55 Acetaminophen (Tylenol Tab) 500 mg Q4H PRN PO MILD PAIN(1-3)OR ELEVATED TEMP; Start 03/17/19 at 23:30 Aspirin (Halfprin) 81 mg DAILY PO Last administered on 03/23/19 08:33; Admin Dose 81 MG; Start 03/18/19 at 09:00 Senna/Docusate Sodium (Senokot-S) 2 tab BID PO Last administered on 03/22/19 21:22; Admin Dose 2 TAB; Start 03/18/19 at 09:00 Nitroglycerin (Nitroglycerin (Sl Tab) 0.4 Mg) 1 tab Q5M PRN SL ANGINA; Start 03/17/19 at 23:30 Miscellaneous Information 1 ea NOTE XX ; Start 03/17/19 at 23:25 Glucose (Glutose) 15 gm Q15M PRN PO DECREASED GLUCOSE; Start 03/17/19 at 23:25 Glucose (Glutose) 22.5 gm Q15M PRN PO DECREASED GLUCOSE; Start 03/17/19 at 23:25 Dextrose (D50w Syringe) 25 ml Q15M PRN IV DECREASED GLUCOSE; Start 03/17/19 at 23:25 Dextrose (D50w Syringe) 50 ml Q15M PRN IV DECREASED GLUCOSE; Start 03/17/19 at 23:25 Glucagon (Glucagen) 1 mg Q15M PRN IM DECREASED GLUCOSE; Start 03/17/19 at 23:25 Glucose (Glutose) 15 gm Q15M PRN BUCCAL DECREASED GLUCOSE; Start 03/17/19 at 23:25 Apixaban (Eliquis) 2.5 mg BID PO Last administered on 6/11/19at 08:33; Admin Dose 2.5 MG; Start 03/19/19 at 21:00 Hydralazine HCl (Apresoline) 10 mg Q4H PRN IV SBP more than 150 mm hg ; Start 03/19/19 at 20:00 Furosemide (Lasix) 20 mg BID DIURETICS PO Last administered on 03/23/19at 05:36; Admin Dose 20 MG; Start 03/22/19 at 18:00 DEBRA PASTRANA Mar 23, 2019 14:41
--- NOTE | 2019-03-23 16:28 | CONS ---
Assessment/Plan Assessment/Plan Hospital Course (Demo Recall) Shortness of breath Chest pain Acute decompensated diastolic congestive heart failure Atrial fibrillation with controlled ventricular rates Hypertension Diabetes Dyslipidemia Respiratory status improving, diuretics as per nephrology Continue beta-paula, continue statin therapy Continue anticoagulation if no contraindication Given history of hematuria in the past, would DC aspirin since patient on Eliquis Consultation Date/Type/Reason Admit Date/Time Mar 17, 2019 at 17:29 Initial Consult Date 03/18/19 Type of Consult Cardiology Requesting Provider: MONTY LENNON MD Date/Time of Note DATE: 03/23/19 TIME: 16:27 24 HR Interval Summary Free Text/Dictation Shortness of breath is better. Denies palpitations Exam/Review of Systems Vital Signs Vitals Vital Signs Date Temp Pulse Resp B/P (MAP) Pulse Ox O2 O2 Flow FiO2 Time Delivery Rate 03/23/19 97.8 52 17 157/74 97 15:50 (101) 03/23/19 Nasal 2.0 08:00 Cannula Intake and Output 03/22/19 03/22/19 03/23/19 1515:00 23:00 07:00 IntakeIntake Total 480 ml 400 ml OutputOutput Total 1200 ml 1000 ml BalanceBalance -720 ml -600 ml Exam Constitutional: alert, oriented (No apparent distress) Respiratory: other (Coarse breath sounds bilaterally, no wheezing) Cardiovascular: irregular rhythm (S1-S2 heard) Gastrointestinal: soft, non-tender, bowel sounds Extremities: other (Trace edema) Labs Result Diagram: 03/23/19 0625 03/23/19 0625 Results 24hrs Laboratory Tests Test 03/22/19 21:21 03/23/19 06:25 03/23/19 07:46 03/23/19 11:47 Bedside Glucose 115 112 107 White Blood Count 5.1 Red Blood Count 3.66 L Hemoglobin 11.0 L Hematocrit 33.6 L Mean Corpuscular 91.8 Volume Mean Corpuscular 30.1 Hemoglobin Mean Corpuscular 32.7 Hemoglobin Concent Red Cell 12.0 Distribution Width Platelet Count 278 Mean Platelet Volume 9.4 Immature 0.200 Granulocytes % Neutrophils % 62.0 Lymphocytes % 23.5 Monocytes % 11.0 Eosinophils % 2.9 Basophils % 0.4 Nucleated Red Blood 0.0 Cells % Immature 0.010 Granulocytes # Neutrophils # 3.2 Lymphocytes # 1.2 Monocytes # 0.6 Eosinophils # 0.2 Basophils # 0.0 Nucleated Red Blood 0.0 Cells # Sodium Level 139 Potassium Level 4.2 Chloride Level 104 Carbon Dioxide Level 22 Anion Gap 13 Blood Urea Nitrogen 69 H Creatinine 4.67 H Est Glomerular Filtrat Rate mL/min Glucose Level 117 Calcium Level 8.7 Medications Medications Current Medications Amlodipine Besylate (Norvasc) 10 mg DAILY PO Last administered on 03/23/19 08:33; Admin Dose 10 MG; Start 03/18/19 at 09:00 Carvedilol (Coreg) 12.5 mg BID PO Last administered on 03/23/19 08:34; Admin Dose 12.5 MG; Start 03/18/19 at 09:00 Ferrous Sulfate (Ferrous Sulfate (Ec)) 325 mg QAM PO Last administered on 03/23 08:33; Admin Dose 325 MG; Start 03/18/19 at 09:00 Tamsulosin HCl (Flomax) 0.4 mg HS PO Last administered on 03/22/19 21:22; Admin Dose 0.4 MG; Start 03/18/19 at 21:00 Atorvastatin Calcium (Lipitor) 20 mg HS PO Last administered on 03/22/19 21:22; Admin Dose 20 MG; Start 03/18/19 at 21:00 Insulin Aspart (Novolog Insulin Pen) NOVOLOG *MILD* ALGORITHM WITH MEALS BEDTIME SC Last administered on 03/19/19 17:21; Admin Dose 3 UNIT; Start 03/18/19 at 07:55 Acetaminophen (Tylenol Tab) 500 mg Q4H PRN PO MILD PAIN(1-3)OR ELEVATED TEMP; Start 03/17/19 at 23:30 Aspirin (Halfprin) 81 mg DAILY PO Last administered on 03/23/19 08:33; Admin Dose 81 MG; Start 03/18/19 at 09:00 Senna/Docusate Sodium (Senokot-S) 2 tab BID PO Last administered on 03/22/19 21:22; Admin Dose 2 TAB; Start 03/18/19 at 09:00 Nitroglycerin (Nitroglycerin (Sl Tab) 0.4 Mg) 1 tab Q5M PRN SL ANGINA; Start 03/17/19 at 23:30 Miscellaneous Information 1 ea NOTE XX ; Start 03/17/19 at 23:25 Glucose (Glutose) 15 gm Q15M PRN PO DECREASED GLUCOSE; Start 03/17/19 at 23:25 Glucose (Glutose) 22.5 gm Q15M PRN PO DECREASED GLUCOSE; Start 03/17/19 at 23:25 Dextrose (D50w Syringe) 25 ml Q15M PRN IV DECREASED GLUCOSE; Start 03/17/19 at 23:25 Dextrose (D50w Syringe) 50 ml Q15M PRN IV DECREASED GLUCOSE; Start 03/17/19 at 23:25 Glucagon (Glucagen) 1 mg Q15M PRN IM DECREASED GLUCOSE; Start 03/17/19 at 23:25 Glucose (Glutose) 15 gm Q15M PRN BUCCAL DECREASED GLUCOSE; Start 03/17/19 at 23:25 Apixaban (Eliquis) 2.5 mg BID PO Last administered on 03/23/19at 08:33; Admin Dose 2.5 MG; Start 03/19/19 at 21:00 Hydralazine HCl (Apresoline) 10 mg Q4H PRN IV SBP more than 150 mm hg ; Start 03/19/19 at 20:00 Furosemide (Lasix) 20 mg BID DIURETICS PO Last administered on 03/23/19at 05:36; Admin Dose 20 MG; Start 03/22/19 at 18:00 Gilson Cortez DO Mar 23, 2019 16:28
--- NOTE | 2019-03-23 18:08 | CONS ---
Assessment/Plan Assessment/Plan Assessment/Plan (Daily) 1. 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 H/o CKD III/IV diabetic nephropathy 3. Acute decompensated diastolic congestive heart failure 4. H/o Atrial fibrillation with controlled ventricular rates 5. H/o Hypertension 6. H/o Diabetes Type II, Poorly controlled 7. H/o Dyslipidemia 8. H/o BPH On Flomax ,s/P TURP in 07/2018 Plan: ECHO showed RSVP 60 mm Hg, EF 55%, abnormal diastolic function no ACEI/ARB due to HARMONY on CKD IV, BUN/Cr 69/4.67- other electrolytes normal- change lasix to 20mg PO BID Amlodipine 10mg po daily and Coreg 12.5 mg pO BID for HTN control , IV hydralazine prn Renal US showed Echogenic kidneys, consistent with medical renal disease.,right kidney measures 9.0 cm.Left kidney measures 8.1 cm. There are multiple simple cysts in the left kidney, the largest measuring 3.4 cm. pt remained stable around his Cr 4.5-4.7 range, other electrolytes normal and stable this time, no need for HD initiation at this time Ok to d/c with PO lasix 20mg BID, no ACEI/ARB on discharge Follow up with me in clinic in 1-2 week will follow up Consultation Date/Type/Reason Admit Date/Time Mar 17, 2019 at 17:29 Initial Consult Date 03/18/19 Type of Consult NEPHROLOGY Requesting Provider: MONTY LENNON MD Date/Time of Note DATE: 03/23/19 TIME: 18:08 24 HR Interval Summary Free Text/Dictation BUN/Cr 69/4.67,K and HCO3 normal, on lasix 20mg pO BID Exam/Review of Systems Exam Vitals Vital Signs Date Temp Pulse Resp B/P (MAP) Pulse Ox O2 O2 Flow FiO2 Time Delivery Rate 03/23/19 80 16:47 03/23/19 137/83 16:46 (101) 03/23/19 97.8 17 97 15:50 03/23/19 Nasal 2.0 08:00 Cannula Intake and Output 03/22/19 03/22/19 03/23/19 1515:00 23:00 07:00 IntakeIntake Total 480 ml 400 ml OutputOutput Total 1200 ml 1000 ml BalanceBalance -720 ml -600 ml Exam Constitutional: alert Eyes: nl conjunctiva ENMT: nl external ears & nose Neck: supple, non-tender Respiratory: clear to auscultation, normal air movement, diminished breath sounds Cardiovascular: regular rate and rhythm, nl pulses Gastrointestinal: soft, non-tender Extremities: normal pulses 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, nl mental status, nl speech, nl strength Lymph: nl lymph nodes Results Result Diagram: 03/23/1962403/23/19624 Results 24hrs Laboratory Tests Test 03/22/19 21:21 03/23/19 06:25 03/23/19 07:46 03/23/19 11:47 Bedside Glucose 115 112 107 White Blood Count 5.1 Red Blood Count 3.66 L Hemoglobin 11.0 L Hematocrit 33.6 L Mean Corpuscular 91.8 Volume Mean Corpuscular 30.1 Hemoglobin Mean Corpuscular 32.7 Hemoglobin Concent Red Cell 12.0 Distribution Width Platelet Count 278 Mean Platelet Volume 9.4 Immature 0.200 Granulocytes % Neutrophils % 62.0 Lymphocytes % 23.5 Monocytes % 11.0 Eosinophils % 2.9 Basophils % 0.4 Nucleated Red Blood 0.0 Cells % Immature 0.010 Granulocytes # Neutrophils # 3.2 Lymphocytes # 1.2 Monocytes # 0.6 Eosinophils # 0.2 Basophils # 0.0 Nucleated Red Blood 0.0 Cells # Sodium Level 139 Potassium Level 4.2 Chloride Level 104 Carbon Dioxide Level 22 Anion Gap 13 Blood Urea Nitrogen 69 H Creatinine 4.67 H Est Glomerular Filtrat Rate mL/min Glucose Level 117 Calcium Level 8.7 Medications Medication Current Medications Amlodipine Besylate (Norvasc) 10 mg DAILY PO Last administered on 03/23/19 08:33; Admin Dose 10 MG; Start 03/18/19 at 09:00 Carvedilol (Coreg) 12.5 mg BID PO Last administered on 03/23/19 08:34; Admin Dose 12.5 MG; Start 03/18/19 at 09:00 Ferrous Sulfate (Ferrous Sulfate (Ec)) 325 mg QAM PO Last administered on 03/23/19 08:33; Admin Dose 325 MG; Start 03/18/19 at 09:00 Tamsulosin HCl (Flomax) 0.4 mg HS PO Last administered on 03/22/19 21:22; Admin Dose 0.4 MG; Start 03/18/19 at 21:00 Atorvastatin Calcium (Lipitor) 20 mg HS PO Last administered on 03/22/19at 21:22; Admin Dose 20 MG; Start 03/18/19 at 21:00 Insulin Aspart (Novolog Insulin Pen) NOVOLOG *MILD* ALGORITHM WITH MEALS BEDTIME SC Last administered on 03/19/19at 17:21; Admin Dose 3 UNIT; Start 03/18/19 at 07:55 Acetaminophen (Tylenol Tab) 500 mg Q4H PRN PO MILD PAIN(1-3)OR ELEVATED TEMP; Start 03/17/19 at 23:30 Senna/Docusate Sodium (Senokot-S) 2 tab BID PO Last administered on 03/22/19at 21:22; Admin Dose 2 TAB; Start 03/18/19 at 09:00 Nitroglycerin (Nitroglycerin (Sl Tab) 0.4 Mg) 1 tab Q5M PRN SL ANGINA; Start 03/17/19 at 23:30 Miscellaneous Information 1 ea NOTE XX ; Start 03/17/19 at 23:25 Glucose (Glutose) 15 gm Q15M PRN PO DECREASED GLUCOSE; Start 03/17/19 at 23:25 Glucose (Glutose) 22.5 gm Q15M PRN PO DECREASED GLUCOSE; Start 03/17/19 at 23:25 Dextrose (D50w Syringe) 25 ml Q15M PRN IV DECREASED GLUCOSE; Start 03/17/19 at 23:25 Dextrose (D50w Syringe) 50 ml Q15M PRN IV DECREASED GLUCOSE; Start 03/17/19 at 23:25 Glucagon (Glucagen) 1 mg Q15M PRN IM DECREASED GLUCOSE; Start 03/17/19 at 23:25 Glucose (Glutose) 15 gm Q15M PRN BUCCAL DECREASED GLUCOSE; Start 03/17/19 at 23:25 Apixaban (Eliquis) 2.5 mg BID PO Last administered on 03/23/19at 08:33; Admin Dose 2.5 MG; Start 03/19/19 at 21:00 Hydralazine HCl (Apresoline) 10 mg Q4H PRN IV SBP more than 150 mm hg ; Start 03/19/19 at 20:00 Furosemide (Lasix) 20 mg BID DIURETICS PO Last administered on 03/23/19at 17:12; Admin Dose 20 MG; Start 03/22/19 at 18:00 NATHANAEL MULLER MD Mar 23, 2019 18:08
[2019-03-23] MEDS: TAMSULOSIN (SR) 0.4 MG CAP PO SCH (20:50)
[2019-03-23] MEDS: ATORVASTATIN 20 MG TAB PO SCH (20:50)
[2019-03-24] VITALS (11 sets, daily range): BP systolic 130–159; BP diastolic 67–81; PULSE 50–79; RESP 18–20
[2019-03-24] MEDS: FUROSEMIDE 20 MG TAB PO SCH (05:22)
[2019-03-24] MEDS: INSULIN ASPART [NOVOLOG] 3 ML PEN SC SCH ×4 (07:55→20:57)
[2019-03-24] MEDS: APIXABAN 5 MG TABLET PO SCH ×2 (08:06→20:54)
[2019-03-24] MEDS: AMLODIPINE 10 MG TAB PO SCH (08:06)
[2019-03-24] MEDS: FERROUS SULFATE (EC) 325 MG TAB PO SCH (08:06)
[2019-03-24] MEDS: SENNA/DOCUSATE NA (8.6MG/50MG) TAB PO SCH ×2 (08:06→20:57)
--- NOTE | 2019-03-24 10:03 | CONS ---
Assessment/Plan Assessment/Plan Assessment/Plan (Daily) 1. 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 H/o CKD III/IV diabetic nephropathy 3. Acute decompensated diastolic congestive heart failure 4. H/o Atrial fibrillation with controlled ventricular rates 5. H/o Hypertension 6. H/o Diabetes Type II, Poorly controlled 7. H/o Dyslipidemia 8. H/o BPH On Flomax ,s/P TURP in 07/2018 Plan: ECHO showed RSVP 60 mm Hg, EF 55%, abnormal diastolic function cardiology Dr. Cortez following no ACEI/ARB due to HARMONY on CKD IV, BUN/Cr still high 72/5.09- change lasix to 20mg PO daily Amlodipine 10mg po daily and Coreg 12.5 mg pO BID for HTN control , IV hydralazine prn Flomax for BPH Renal US showed Echogenic kidneys, consistent with medical renal disease.,right kidney measures 9.0 cm.Left kidney measures 8.1 cm. There are multiple simple cysts in the left kidney, the largest measuring 3.4 cm. No acute indication for HD initiation at this time, Ok to d/c home with PO lasix 20mg po daily follow up farhana maldonado in clinic )- in 1 week after discharge will follow up Consultation Date/Type/Reason Admit Date/Time Mar 17, 2019 at 17:29 Initial Consult Date 03/18/19 Type of Consult NEPHROLOGY Requesting Provider: MONTY LENNON MD Date/Time of Note DATE: 03/24/19 TIME: 10:03 Exam/Review of Systems Exam Vitals Vital Signs Date Temp Pulse Resp B/P (MAP) Pulse Ox O2 O2 Flow FiO2 Time Delivery Rate 03/24/19 79 08:15 03/24/19 97.8 20 159/71 98 Room Air 07:24 (100) 03/23/19 2.0 08:00 Intake and Output 03/23/19 03/23/19 03/24/19 1515:00 23:00 07:00 IntakeIntake Total 900 ml 700 ml OutputOutput Total 850 ml 1200 ml BalanceBalance 50 ml -500 ml Exam Constitutional: alert Eyes: nl conjunctiva ENMT: nl external ears & nose Neck: supple, non-tender Respiratory: clear to auscultation, normal air movement, diminished breath sounds Cardiovascular: regular rate and rhythm, nl pulses Gastrointestinal: soft, non-tender Extremities: normal pulses Neurological: INFORMATION SYSTEMS MANAGER II-XII intact, nl mental status, nl speech, nl strength Lymph: nl lymph nodes Results Result Diagram: 03/23/1925 03/24/19 0638 Results 24hrs Laboratory Tests Test 03/23/19 11:47 03/23/19 20:36 03/24/19 06:38 03/24/19 08:01 Bedside Glucose 107 126 118 Sodium Level 143 Potassium Level 4.4 Chloride Level 103 Carbon Dioxide Level 23 Anion Gap 17 H Blood Urea Nitrogen 72 H Creatinine 5.09 H Est Glomerular Filtrat Rate mL/min Glucose Level 106 Calcium Level 9.0 Medications Medication Current Medications Amlodipine Besylate (Norvasc) 10 mg DAILY PO Last administered on 03/24/19 08:06; Admin Dose 10 MG; Start 03/18/19 at 09:00 Carvedilol (Coreg) 12.5 mg BID PO Last administered on 03/24/19 08:06; Admin Dose 12.5 MG; Start 03/18/19 at 09:00 Ferrous Sulfate (Ferrous Sulfate (Ec)) 325 mg QAM PO Last administered on 03/24/19 08:06; Admin Dose 325 MG; Start 03/18/19 at 09:00 Tamsulosin HCl (Flomax) 0.4 mg HS PO Last administered on 03/23/19at 20:50; Admin Dose 0.4 MG; Start 03/18/19 at 21:00 Atorvastatin Calcium (Lipitor) 20 mg HS PO Last administered on 03/23/19at 20:50; Admin Dose 20 MG; Start 03/18/19 at 21:00 Insulin Aspart (Novolog Insulin Pen) NOVOLOG *MILD* ALGORITHM WITH MEALS BEDTIME SC Last administered on 03/19/19 17:21; Admin Dose 3 UNIT; Start 03/18/19 at 07:55 Acetaminophen (Tylenol Tab) 500 mg Q4H PRN PO MILD PAIN(1-3)OR ELEVATED TEMP; Start 03/17/19 at 23:30 Senna/Docusate Sodium (Senokot-S) 2 tab BID PO Last administered on 03/24/19 08:06; Admin Dose 2 TAB; Start 03/18/19 at 09:00 Nitroglycerin (Nitroglycerin (Sl Tab) 0.4 Mg) 1 tab Q5M PRN SL ANGINA; Start 03/17/19 at 23:30 Miscellaneous Information 1 ea NOTE XX ; Start 03/17/19 at 23:25 Glucose (Glutose) 15 gm Q15M PRN PO DECREASED GLUCOSE; Start 03/17/19 at 23:25 Glucose (Glutose) 22.5 gm Q15M PRN PO DECREASED GLUCOSE; Start 03/17/19 at 23:25 Dextrose (D50w Syringe) 25 ml Q15M PRN IV DECREASED GLUCOSE; Start 03/17/19 at 23:25 Dextrose (D50w Syringe) 50 ml Q15M PRN IV DECREASED GLUCOSE; Start 03/17/19 at 23:25 Glucagon (Glucagen) 1 mg Q15M PRN IM DECREASED GLUCOSE; Start 03/17/19 at 23:25 Glucose (Glutose) 15 gm Q15M PRN BUCCAL DECREASED GLUCOSE; Start 03/17/19 at 23:25 Apixaban (Eliquis) 2.5 mg BID PO Last administered on 03/24/19at 08:06; Admin Dose 2.5 MG; Start 03/19/19 at 21:00 Hydralazine HCl (Apresoline) 10 mg Q4H PRN IV SBP more than 150 mm hg ; Start 03/19/19 at 20:00 Furosemide (Lasix) 20 mg BID DIURETICS PO Last administered on 03/24/19at 05:22; Admin Dose 20 MG; Start 03/22/19 at 18:00 NATHANAEL MULLER MD Mar 24, 2019 10:03
--- NOTE | 2019-03-24 12:12 | CONS ---
Assessment/Plan Assessment/Plan Hospital Course (Demo Recall) Shortness of breath Chest pain Acute decompensated diastolic congestive heart failure Atrial fibrillation with controlled ventricular rates Hypertension Diabetes Dyslipidemia Respiratory status improving, diuretics as per nephrology Continue beta-paula, continue statin therapy Continue anticoagulation if no contraindication Consultation Date/Type/Reason Admit Date/Time Mar 17, 2019 at 17:29 Initial Consult Date 03/18/19 Type of Consult Cardiology Requesting Provider: MONTY LENNON MD Date/Time of Note DATE: 03/24/19 TIME: 12:07 24 HR Interval Summary Free Text/Dictation No shortness of breath, palpitations Exam/Review of Systems Vital Signs Vitals Vital Signs Date Temp Pulse Resp B/P (MAP) Pulse Ox O2 O2 Flow FiO2 Time Delivery Rate 03/24/19 97.8 68 20 159/73 96 Room Air 11:34 (101) 03/23/19 2.0 08:00 Intake and Output 03/23/19 03/23/19 03/24/19 1515:00 23:00 07:00 IntakeIntake Total 900 ml 700 ml OutputOutput Total 850 ml 1200 ml BalanceBalance 50 ml -500 ml Exam Constitutional: alert, oriented (Sitting in chair, no apparent distress) Head: normocephalic Respiratory: other (Coarse breath sounds bilaterally, no wheezing) Cardiovascular: irregular rhythm (S1-S2 heard) Gastrointestinal: soft, non-tender, bowel sounds Extremities: edema (Trace) Labs Result Diagram: 03/23/19 0625 03/24/19 0638 Results 24hrs Laboratory Tests Test 03/23/19 20:36 03/24/19 06:38 03/24/19 08:01 Bedside Glucose 126 118 Sodium Level 143 Potassium Level 4.4 Chloride Level 103 Carbon Dioxide Level 23 Anion Gap 17 H Blood Urea Nitrogen 72 H Creatinine 5.09 H Est Glomerular Filtrat Rate mL/min Glucose Level 106 Calcium Level 9.0 Medications Medications Current Medications Amlodipine Besylate (Norvasc) 10 mg DAILY PO Last administered on 03/24/19at 08:06; Admin Dose 10 MG; Start 03/18/19 at 09:00 Carvedilol (Coreg) 12.5 mg BID PO Last administered on 03/24/19at 08:06; Admin Dose 12.5 MG; Start 03/18/19 at 09:00 Ferrous Sulfate (Ferrous Sulfate (Ec)) 325 mg QAM PO Last administered on 03/24/19at 08:06; Admin Dose 325 MG; Start 03/18/19 at 09:00 Tamsulosin HCl (Flomax) 0.4 mg HS PO Last administered on 03/23/19at 20:50; Admin Dose 0.4 MG; Start 03/18/19 at 21:00 Atorvastatin Calcium (Lipitor) 20 mg HS PO Last administered on 03/23/19at 20:50; Admin Dose 20 MG; Start 03/18/19 at 21:00 Insulin Aspart (Novolog Insulin Pen) NOVOLOG *MILD* ALGORITHM WITH MEALS BEDTIME SC Last administered on 03/19/19at 17:21; Admin Dose 3 UNIT; Start 03/18/19 at 07:55 Acetaminophen (Tylenol Tab) 500 mg Q4H PRN PO MILD PAIN(1-3)OR ELEVATED TEMP; Start 03/17/19 at 23:30 Senna/Docusate Sodium (Senokot-S) 2 tab BID PO Last administered on 03/24/19at 08:06; Admin Dose 2 TAB; Start 03/18/19 at 09:00 Nitroglycerin (Nitroglycerin (Sl Tab) 0.4 Mg) 1 tab Q5M PRN SL ANGINA; Start 03/17/19 at 23:30 Miscellaneous Information 1 ea NOTE XX ; Start 03/17/19 at 23:25 Glucose (Glutose) 15 gm Q15M PRN PO DECREASED GLUCOSE; Start 03/17/19 at 23:25 Glucose (Glutose) 22.5 gm Q15M PRN PO DECREASED GLUCOSE; Start 03/17/19 at 23:25 Dextrose (D50w Syringe) 25 ml Q15M PRN IV DECREASED GLUCOSE; Start 03/17/19 at 23:25 Dextrose (D50w Syringe) 50 ml Q15M PRN IV DECREASED GLUCOSE; Start 03/17/19 at 23:25 Glucagon (Glucagen) 1 mg Q15M PRN IM DECREASED GLUCOSE; Start 03/17/19 at 23:25 Glucose (Glutose) 15 gm Q15M PRN BUCCAL DECREASED GLUCOSE; Start 03/17/19 at 23:25 Apixaban (Eliquis) 2.5 mg BID PO Last administered on 03/24/19at 08:06; Admin Dose 2.5 MG; Start 03/19/19 at 21:00 Hydralazine HCl (Apresoline) 10 mg Q4H PRN IV SBP more than 150 mm hg ; Start 03/19/19 at 20:00 Furosemide (Lasix) 20 mg DAILY PO ; Start 03/25/19 at 09:00 Gilson Cortez DO Mar 24, 2019 12:12
--- NOTE | 2019-03-24 16:10 | PN ---
Date/Time of Note Date/Time of Note DATE: 03/24/19 TIME: 16:07 Assessment/Plan VTE Prophylaxis Risk score (from Ns)>0 risk: 6 SCD applied (from Ns): Yes Pharmacological prophylaxis: apixaban Lines/Catheters IV C[facility]ter Type (from [facility]): Peripheral IV Urinary Cath still in place: No Assessment/Plan Hospital Course Any chest pain denies shortness of breath at rest, atrial fibrillation at controlled rate, continue diuresis per nephrology, patient stated she is not is not able to ambulate, pending PT eval. Assessment/Plan -Chest pain, rule out acute coronary syndrome, troponin is negative x 3, 2D echo with preserved ejection fraction of 55%. Dr. Cortez is following in cardiology consultation. -Acute decompensated diastolic congestive heart failure. 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 Dr. Johnson is following in nephrology consultation. -Atrial fibrillation. Continue aspirin. -Hypertension. -CAD, hx of [place]. -Diabetes mellitus type 2 -History of stroke with right-sided weakness. -Hx of TURP Further recommendations based on clinical course. Plan of care discussed with Dr. Hood. Result Diagram: 03/23/19 0625 03/24/19 0638 Results 24hrs Laboratory Tests Test 03/23/19 20:36 03/24/19 06:38 03/24/19 08:01 03/24/19 12:10 Bedside Glucose 126 118 112 Sodium Level 143 Potassium Level 4.4 Chloride Level 103 Carbon Dioxide Level 23 Anion Gap 17 H Blood Urea Nitrogen 72 H Creatinine 5.09 H Est Glomerular Filtrat Rate mL/min Glucose Level 106 Calcium Level 9.0 Exam/Review of Systems Exam Vitals Vital Signs Date Temp Pulse Resp B/P (MAP) Pulse Ox O2 O2 Flow FiO2 Time Delivery Rate 03/24/19 97.6 50 20 141/81 93 Room Air 15:44 (101) 03/23/19 2.0 08:00 Intake and Output 03/23/19 03/23/19 03/24/19 1515:00 23:00 07:00 IntakeIntake Total 900 ml 700 ml OutputOutput Total 850 ml 1200 ml BalanceBalance 50 ml -500 ml Exam Constitutional: alert, oriented Respiratory: diminished breath sounds Cardiovascular: irregular rhythm Gastrointestinal: soft, non-tender Musculoskeletal: nl extremities to inspection Extremities: normal pulses Results Results 24hrs Laboratory Tests Test 03/23/19 20:36 03/24/19 06:38 03/24/19 08:01 03/24/19 12:10 Bedside Glucose 126 118 112 Sodium Level 143 Potassium Level 4.4 Chloride Level 103 Carbon Dioxide Level 23 Anion Gap 17 H Blood Urea Nitrogen 72 H Creatinine 5.09 H Est Glomerular Filtrat Rate mL/min Glucose Level 106 Calcium Level 9.0 Medications Medication Current Medications Amlodipine Besylate (Norvasc) 10 mg DAILY PO Last administered on 03/24/19 08:06; Admin Dose 10 MG; Start 03/18/19 at 09:00 Carvedilol (Coreg) 12.5 mg BID PO Last administered on 03/24/19 08:06; Admin Dose 12.5 MG; Start 03/18/19 at 09:00 Ferrous Sulfate (Ferrous Sulfate (Ec)) 325 mg QAM PO Last administered on 03/13 08:06; Admin Dose 325 MG; Start 03/18/19 at 09:00 Tamsulosin HCl (Flomax) 0.4 mg HS PO Last administered on 03/23/19 20:50; Admin Dose 0.4 MG; Start 03/18/19 at 21:00 Atorvastatin Calcium (Lipitor) 20 mg HS PO Last administered on 03/23/19 20:50; Admin Dose 20 MG; Start 03/18/19 at 21:00 Insulin Aspart (Novolog Insulin Pen) NOVOLOG *MILD* ALGORITHM WITH MEALS BEDTIME SC Last administered on 03/19/19 17:21; Admin Dose 3 UNIT; Start 03/18/19 at 07:55 Acetaminophen (Tylenol Tab) 500 mg Q4H PRN PO MILD PAIN(1-3)OR ELEVATED TEMP; Start 03/17/19 at 23:30 Senna/Docusate Sodium (Senokot-S) 2 tab BID PO Last administered on 03/24/19 08:06; Admin Dose 2 TAB; Start 03/18/19 at 09:00 Nitroglycerin (Nitroglycerin (Sl Tab) 0.4 Mg) 1 tab Q5M PRN SL ANGINA; Start 03/17/19 at 23:30 Miscellaneous Information 1 ea NOTE XX ; Start 03/17/19 at 23:25 Glucose (Glutose) 15 gm Q15M PRN PO DECREASED GLUCOSE; Start 03/17/19 at 23:25 Glucose (Glutose) 22.5 gm Q15M PRN PO DECREASED GLUCOSE; Start 03/17/19 at 23:25 Dextrose (D50w Syringe) 25 ml Q15M PRN IV DECREASED GLUCOSE; Start 03/17/19 at 23:25 Dextrose (D50w Syringe) 50 ml Q15M PRN IV DECREASED GLUCOSE; Start 03/17/19 at 23:25 Glucagon (Glucagen) 1 mg Q15M PRN IM DECREASED GLUCOSE; Start 03/17/19 at 23:25 Glucose (Glutose) 15 gm Q15M PRN BUCCAL DECREASED GLUCOSE; Start 03/17/19 at 23:25 Apixaban (Eliquis) 2.5 mg BID PO Last administered on 03/24/19at 08:06; Admin Dose 2.5 MG; Start 03/19/19 at 21:00 Hydralazine HCl (Apresoline) 10 mg Q4H PRN IV SBP more than 150 mm hg ; Start 03/19/19 at 20:00 Furosemide (Lasix) 20 mg DAILY PO ; Start 03/25/19 at 09:00 DEBRA PASTRANA Mar 24, 2019 16:10
[2019-03-24] MEDS: TAMSULOSIN (SR) 0.4 MG CAP PO SCH (20:53)
[2019-03-24] MEDS: ATORVASTATIN 20 MG TAB PO SCH (20:53)
[2019-03-25] VITALS (10 sets, daily range): BP systolic 119–142; BP diastolic 69–85; PULSE 56–85; RESP 16–20
[2019-03-25] MEDS: INSULIN ASPART [NOVOLOG] 3 ML PEN SC SCH ×4 (07:55→20:15)
[2019-03-25] MEDS: FERROUS SULFATE (EC) 325 MG TAB PO SCH (08:05)
[2019-03-25] MEDS: SENNA/DOCUSATE NA (8.6MG/50MG) TAB PO SCH ×2 (08:05→20:08)
[2019-03-25] MEDS: AMLODIPINE 10 MG TAB PO SCH (08:06)
[2019-03-25] MEDS: APIXABAN 5 MG TABLET PO SCH ×2 (08:06→20:08)
[2019-03-25] MEDS: FUROSEMIDE 20 MG TAB PO SCH (08:06)
--- NOTE | 2019-03-25 09:24 | PN ---
DATE: 03/25/[address] NATHANAEL MULLER SUBJECTIVE: The patient is stable overnight, no fevers, chills, nausea, vomiting. OBJECTIVE: VITAL SIGNS: Blood pressure is 131/84, respirations 16, pulse 71, temperature 98.3. HEENT: Head is normocephalic. NECK: Supple. HEART: Regular rate. LUNGS: Show diminished breath sounds at the base. ABDOMEN: Soft, nontender to palpation without rebound or guarding. EXTREMITIES: Negative for clubbing, cyanosis, no edema. DERMATOLOGIC: No rashes. MUSCULOSKELETAL: No joint effusion. NEUROLOGIC: No change in exam. MEDICATIONS: Reviewed. LABORATORY DATA: Has been reviewed. ASSESSMENT AND PLAN: 1. Nonoliguric acute kidney injury on top of chronic kidney disease stage IV/V. Etiology of acute k idney injury is secondary to hemodynamics. The patient's renal function has been fluctuating but ove rall improved. Patient has no overt signs of uremia. At this point, would continue current treatmen t plan. Continue supportive care, renally dose all meds. Would defer any ANAM inhibitor at this time . 2. Anemia. Continue to monitor hemoglobin and hematocrit levels. Give Epogen as needed. 3. Mineral bone disorder, monitor calcium and phosphorus levels. 4. Hypertension. Continue current blood pressure regimen. 5. Benign prostatic hypertrophy. Continue Flomax. 6. History of atrial fibrillation. Continue current medical management and follow up with cardiolog y. 7. Diabetes. Continue current diabetic regimen. 8. Dyslipidemia. Continue statin therapy. 9. Volume overload secondary to acute decompensated heart failure, advanced chronic kidney disease. Continue current diuretic regimen, monitor renal function closely. 10. Arrhythmia. Continue medical management. Continue Eliquis. 11. History of cerebrovascular accident. Dictated By: NEO ABEL DO NR/NTS Conf#: [id number] DID#: [id number] CC: MONTY LENNON MD;*EndCC*
--- NOTE | 2019-03-25 13:38 | CONS ---
Assessment/Plan Assessment/Plan Hospital Course (Demo Recall) Shortness of breath Chest pain Acute decompensated diastolic congestive heart failure Atrial fibrillation with controlled ventricular rates Hypertension Diabetes Dyslipidemia Respiratory status improving, diuretics as per nephrology Patient with heart rates as low as the 40s at times but asymptomatic, will decrease dose of carvedilol, continue statin therapy Continue anticoagulation if no contraindication Consultation Date/Type/Reason Admit Date/Time Mar 17, 2019 at 17:29 Initial Consult Date 03/18/19 Type of Consult Cardiology Requesting Provider: MONTY LENNON MD Date/Time of Note DATE: 03/25/19 TIME: 13:37 24 HR Interval Summary Free Text/Dictation Denies shortness of breath currently. Denies palpitations or dizziness Exam/Review of Systems Vital Signs Vitals Vital Signs Date Temp Pulse Resp B/P (MAP) Pulse Ox O2 O2 Flow FiO2 Time Delivery Rate 03/25/19 98.5 61 16 119/72 97 11:38 (88) 03/24/19 Room Air 15:44 03/23/19 2.0 08:00 Intake and Output 03/24/19 03/24/19 03/25/19 1515:00 23:00 07:00 IntakeIntake Total 800 ml 400 ml OutputOutput Total 1000 ml 600 ml BalanceBalance -200 ml -200 ml Exam Constitutional: alert, oriented (No apparent distress) Head: normocephalic Respiratory: other (Coarse breath sounds bilaterally, no wheezing) Cardiovascular: irregular rhythm (S1-S2 heard) Gastrointestinal: soft, non-tender, bowel sounds Extremities: edema Labs Result Diagram: 03/23/19 0625 03/25/19 0549 Results 24hrs Laboratory Tests Test 03/24/19 17:48 03/24/19 20:55 03/25/19 05:49 03/25/19 08:03 Bedside Glucose 106 131 97 Sodium Level 139 Potassium Level 4.3 Chloride Level 105 Carbon Dioxide Level 20 L Anion Gap 14 H Blood Urea Nitrogen 73 H Creatinine 4.66 H Est Glomerular Filtrat Rate mL/min Glucose Level 104 Calcium Level 9.1 Test 03/25/19 11:34 Bedside Glucose 167 Medications Medications Current Medications Amlodipine Besylate (Norvasc) 10 mg DAILY PO Last administered on 03/25/19at 08:06; Admin Dose 10 MG; Start 03/18/19 at 09:00 Carvedilol (Coreg) 12.5 mg BID PO Last administered on 03/25/19 08:06; Admin Dose 12.5 MG; Start 03/18/19 at 09:00 Ferrous Sulfate (Ferrous Sulfate (Ec)) 325 mg QAM PO Last administered on 03/25/19 08:05; Admin Dose 325 MG; Start 03/18/19 at 09:00 Tamsulosin HCl (Flomax) 0.4 mg HS PO Last administered on 03/24/19 20:53; Admin Dose 0.4 MG; Start 03/18/19 at 21:00 Atorvastatin Calcium (Lipitor) 20 mg HS PO Last administered on 03/24/19 20:53; Admin Dose 20 MG; Start 03/18/19 at 21:00 Insulin Aspart (Novolog Insulin Pen) NOVOLOG *MILD* ALGORITHM WITH MEALS BEDTIME SC Last administered on 03/25/19 12:02; Admin Dose 1 UNIT; Start 03/18/19 at 07:55 Acetaminophen (Tylenol Tab) 500 mg Q4H PRN PO MILD PAIN(1-3)OR ELEVATED TEMP; Start 03/17/19 at 23:30 Senna/Docusate Sodium (Senokot-S) 2 tab BID PO Last administered on 03/25/19 08:05; Admin Dose 2 TAB; Start 03/18/19 at 09:00 Nitroglycerin (Nitroglycerin (Sl Tab) 0.4 Mg) 1 tab Q5M PRN SL ANGINA; Start 03/17/19 at 23:30 Miscellaneous Information 1 ea NOTE XX ; Start 03/17/19 at 23:25 Glucose (Glutose) 15 gm Q15M PRN PO DECREASED GLUCOSE; Start 03/17/19 at 23:25 Glucose (Glutose) 22.5 gm Q15M PRN PO DECREASED GLUCOSE; Start 03/17/19 at 23:25 Dextrose (D50w Syringe) 25 ml Q15M PRN IV DECREASED GLUCOSE; Start 03/17/19 at 23:25 Dextrose (D50w Syringe) 50 ml Q15M PRN IV DECREASED GLUCOSE; Start 03/17/19 at 23:25 Glucagon (Glucagen) 1 mg Q15M PRN IM DECREASED GLUCOSE; Start 03/17/19 at 23:25 Glucose (Glutose) 15 gm Q15M PRN BUCCAL DECREASED GLUCOSE; Start 03/17/19 at 23:25 Apixaban (Eliquis) 2.5 mg BID PO Last administered on 03/25/19at 08:06; Admin Dose 2.5 MG; Start 03/19/19 at 21:00 Hydralazine HCl (Apresoline) 10 mg Q4H PRN IV SBP more than 150 mm hg ; Start 03/19/19 at 20:00 Furosemide (Lasix) 20 mg DAILY PO Last administered on 03/25/19at 08:06; Admin Dose 20 MG; Start 03/25/19 at 09:00 Gilson Cortez DO Mar 25, 2019 13:38
--- NOTE | 2019-03-25 14:51 | PN ---
Date/Time of Note Date/Time of Note DATE: 03/25/19 TIME: 14:29 Assessment/Plan VTE Prophylaxis Risk score (from Ns)>0 risk: 6 SCD applied (from Ns): Yes Pharmacological prophylaxis: apixaban Lines/Catheters [facility] (from [facility]): Peripheral IV Urinary Cath still in place: No Assessment/Plan Hospital Course Patient with episode of bradycardia with heart rate going down to 38 overnight, Coreg dose decreased by cardiology, continue telemetry monitoring. Patient denies any chest pain, continue physical therapy. If heart rate is well controlled patient can be discharged tomorrow on current dose of Coreg and Lasix 20 mg PO daily with home health services. Assessment/Plan -Chest pain, rule out acute coronary syndrome, troponin is negative x 3, 2D echo with preserved ejection fraction of 55%. Dr. Cortez is following in cardiology consultation. -Acute decompensated diastolic congestive heart failure. Continue Lasix, monitor electrolytes. 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 Dr. Johnson is following in nephrology consultation. -Atrial fibrillation. Continue aspirin. -Hypertension. -CAD, hx of [place]. -Diabetes mellitus type 2 -History of stroke with right-sided weakness. -Hx of TURP Further recommendations based on clinical course. Plan of care discussed with Dr. Hood. Result Diagram: 03/23/19 0625 03/25/19 0549 Results 24hrs Laboratory Tests Test 03/24/19 17:48 03/24/19 20:55 03/25/19 05:49 03/25/19 08:03 Bedside Glucose 106 131 97 Sodium Level 139 Potassium Level 4.3 Chloride Level 105 Carbon Dioxide Level 20 L Anion Gap 14 H Blood Urea Nitrogen 73 H Creatinine 4.66 H Est Glomerular Filtrat Rate mL/min Glucose Level 104 Calcium Level 9.1 Test 03/25/19 11:34 Bedside Glucose 167 Exam/Review of Systems Exam Vitals Vital Signs Date Temp Pulse Resp B/P (MAP) Pulse Ox O2 O2 Flow FiO2 Time Delivery Rate 03/25/19 58 12:01 03/25/19 98.5 16 119/72 97 11:38 (88) 03/24/19 Room Air 15:44 03/23/19 2.0 08:00 Intake and Output 03/24/19 03/24/19 03/25/19 1515:00 23:00 07:00 IntakeIntake Total 800 ml 400 ml OutputOutput Total 1000 ml 600 ml BalanceBalance -200 ml -200 ml Exam Constitutional: alert, oriented Respiratory: diminished breath sounds Cardiovascular: irregular rhythm Gastrointestinal: soft, non-tender Musculoskeletal: nl extremities to inspection Extremities: normal pulses Results Results 24hrs Laboratory Tests Test 03/24/19 17:48 03/24/19 20:55 03/25/19 05:49 03/25/19 08:03 Bedside Glucose 106 131 97 Sodium Level 139 Potassium Level 4.3 Chloride Level 105 Carbon Dioxide Level 20 L Anion Gap 14 H Blood Urea Nitrogen 73 H Creatinine 4.66 H Est Glomerular Filtrat Rate mL/min Glucose Level 104 Calcium Level 9.1 Test 03/25/19 11:34 Bedside Glucose 167 Medications Medication Current Medications Amlodipine Besylate (Norvasc) 10 mg DAILY PO Last administered on 03/25/19 08:06; Admin Dose 10 MG; Start 03/18/19 at 09:00 Ferrous Sulfate (Ferrous Sulfate (Ec)) 325 mg QAM PO Last administered on 03/25/19 08:05; Admin Dose 325 MG; Start 03/18/19 at 09:00 Tamsulosin HCl (Flomax) 0.4 mg HS PO Last administered on 03/24/19 20:53; Admin Dose 0.4 MG; Start 03/18/19 at 21:00 Atorvastatin Calcium (Lipitor) 20 mg HS PO Last administered on 03/24/19 20:53; Admin Dose 20 MG; Start 03/18/19 at 21:00 Insulin Aspart (Novolog Insulin Pen) NOVOLOG *MILD* ALGORITHM WITH MEALS BEDTIME SC Last administered on 03/25/19at 12:02; Admin Dose 1 UNIT; Start 03/18/19 at 07:55 Acetaminophen (Tylenol Tab) 500 mg Q4H PRN PO MILD PAIN(1-3)OR ELEVATED TEMP; Start 03/17/19 at 23:30 Senna/Docusate Sodium (Senokot-S) 2 tab BID PO Last administered on 03/25/19 08:05; Admin Dose 2 TAB; Start 03/18/19 at 09:00 Nitroglycerin (Nitroglycerin (Sl Tab) 0.4 Mg) 1 tab Q5M PRN SL ANGINA; Start 03/17/19 at 23:30 Miscellaneous Information 1 ea NOTE XX ; Start 03/17/19 at 23:25 Glucose (Glutose) 15 gm Q15M PRN PO DECREASED GLUCOSE; Start 03/17/19 at 23:25 Glucose (Glutose) 22.5 gm Q15M PRN PO DECREASED GLUCOSE; Start 03/17/19 at 23:25 Dextrose (D50w Syringe) 25 ml Q15M PRN IV DECREASED GLUCOSE; Start 03/17/19 at 23:25 Dextrose (D50w Syringe) 50 ml Q15M PRN IV DECREASED GLUCOSE; Start 03/17/19 at 23:25 Glucagon (Glucagen) 1 mg Q15M PRN IM DECREASED GLUCOSE; Start 03/17/19 at 23:25 Glucose (Glutose) 15 gm Q15M PRN BUCCAL DECREASED GLUCOSE; Start 03/17/19 at 23:25 Apixaban (Eliquis) 2.5 mg BID PO Last administered on 03/25/19at 08:06; Admin Dose 2.5 MG; Start 03/19/19 at 21:00 Hydralazine HCl (Apresoline) 10 mg Q4H PRN IV SBP more than 150 mm hg ; Start 03/19/19 at 20:00 Furosemide (Lasix) 20 mg DAILY PO Last administered on 03/25/19at 08:06; Admin Dose 20 MG; Start 03/25/19 at 09:00 Carvedilol (Coreg) 6.25 mg BID PO ; Start 03/25/19 at 21:00 DEBRA PASTRANA Mar 25, 2019 14:39
[2019-03-25] MEDS: ATORVASTATIN 20 MG TAB PO SCH (20:07)
[2019-03-25] MEDS: TAMSULOSIN (SR) 0.4 MG CAP PO SCH (20:08)
[2019-03-26] VITALS (11 sets, daily range): BP systolic 128–143; BP diastolic 67–89; PULSE 59–99; RESP 18–22
--- NOTE | 2019-03-26 04:01 | PN ---
Date/Time of Note Date/Time of Note DATE: 03/26/19 TIME: 04:00 Assessment/Plan VTE Prophylaxis Risk score (from Nsg)>0 risk: 6 SCD applied (from Nsg): No Lines/Catheters IV Catheter Type (from Nrsg): Peripheral IV Urinary Cath still in place: No Assessment/Plan Assessment/Plan -Chest pain, rule out acute coronary syndrome, troponin is negative x 3, 2D echo with preserved ejection fraction of 55%. Dr. Cortez is following in cardiology consultation. -Acute decompensated diastolic congestive heart failure. Continue Lasix, monitor electrolytes. 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 Dr. Johnson is following in nephrology consultation. -Atrial fibrillation. Continue aspirin. -Hypertension. -CAD, hx of [place]. -Diabetes mellitus type 2 -History of stroke with right-sided weakness. -Hx of TURP Further recommendations based on clinical course. Plan of care discussed with Dr. Hood. Result Diagram: 03/23/19 0625 03/25/19 0549 Results 24hrs Laboratory Tests Test 03/25/19 05:49 03/25/19 08:03 03/25/19 11:34 03/25/19 17:40 Sodium Level 139 Potassium Level 4.3 Chloride Level 105 Carbon Dioxide Level 20 L Anion Gap 14 H Blood Urea Nitrogen 73 H Creatinine 4.66 H Est Glomerular Filtrat Rate mL/min Glucose Level 104 Calcium Level 9.1 Bedside Glucose 97 167 106 Test 03/25/19 20:11 Bedside Glucose 139 Exam/Review of Systems Exam Vitals Vital Signs Date Temp Pulse Resp B/P (MAP) Pulse Ox O2 O2 Flow FiO2 Time Delivery Rate 03/26/19 97.6 70 18 129/77 98 00:00 (94) 03/24/19 Room Air 15:44 03/23/19 2.0 08:00 Intake and Output 03/25/19 03/25/19 03/26/19 1515:00 23:00 07:00 IntakeIntake Total 650 ml OutputOutput Total 850 ml BalanceBalance -200 ml Results Results 24hrs Laboratory Tests Test 03/25/19 05:49 03/25/19 08:03 03/25/19 11:34 03/25/19 17:40 Sodium Level 139 Potassium Level 4.3 Chloride Level 105 Carbon Dioxide Level 20 L Anion Gap 14 H Blood Urea Nitrogen 73 H Creatinine 4.66 H Est Glomerular Filtrat Rate mL/min Glucose Level 104 Calcium Level 9.1 Bedside Glucose 97 167 106 Test 03/25/19 20:11 Bedside Glucose 139 Medications Medication Current Medications Amlodipine Besylate (Norvasc) 10 mg DAILY PO Last administered on 03/25/19 08:06; Admin Dose 10 MG; Start 03/18/19 at 09:00 Ferrous Sulfate (Ferrous Sulfate (Ec)) 325 mg QAM PO Last administered on 03/25/19at 08:05; Admin Dose 325 MG; Start 03/18/19 at 09:00 Tamsulosin HCl (Flomax) 0.4 mg HS PO Last administered on 03/25/19 20:08; Admin Dose 0.4 MG; Start 03/18/19 at 21:00 Atorvastatin Calcium (Lipitor) 20 mg HS PO Last administered on 03/25/19 20:07; Admin Dose 20 MG; Start 03/18/19 at 21:00 Insulin Aspart (Novolog Insulin Pen) NOVOLOG *MILD* ALGORITHM WITH MEALS BEDTIME SC Last administered on 03/25/19at 12:02; Admin Dose 1 UNIT; Start 03/18/19 at 07:55 Acetaminophen (Tylenol Tab) 500 mg Q4H PRN PO MILD PAIN(1-3)OR ELEVATED TEMP; Start 03/17/19 at 23:30 Senna/Docusate Sodium (Senokot-S) 2 tab BID PO Last administered on 03/25/19 20:08; Admin Dose 2 TAB; Start 03/18/19 at 09:00 Nitroglycerin (Nitroglycerin (Sl Tab) 0.4 Mg) 1 tab Q5M PRN SL ANGINA; Start 03/17/19 at 23:30 Miscellaneous Information 1 ea NOTE XX ; Start 03/17/19 at 23:25 Glucose (Glutose) 15 gm Q15M PRN PO DECREASED GLUCOSE; Start 03/17/19 at 23:25 Glucose (Glutose) 22.5 gm Q15M PRN PO DECREASED GLUCOSE; Start 03/17/19 at 23:25 Dextrose (D50w Syringe) 25 ml Q15M PRN IV DECREASED GLUCOSE; Start 03/17/19 at 23:25 Dextrose (D50w Syringe) 50 ml Q15M PRN IV DECREASED GLUCOSE; Start 03/17/19 at 23:25 Glucagon (Glucagen) 1 mg Q15M PRN IM DECREASED GLUCOSE; Start 03/17/19 at 23:25 Glucose (Glutose) 15 gm Q15M PRN BUCCAL DECREASED GLUCOSE; Start 03/17/19 at 23:25 Apixaban (Eliquis) 2.5 mg BID PO Last administered on 03/25/19at 20:08; Admin Dose 2.5 MG; Start 03/19/19 at 21:00 Hydralazine HCl (Apresoline) 10 mg Q4H PRN IV SBP more than 150 mm hg ; Start 03/19/19 at 20:00 Furosemide (Lasix) 20 mg DAILY PO Last administered on 03/25/19at 08:06; Admin Dose 20 MG; Start 03/25/19 at 09:00 Carvedilol (Coreg) 6.25 mg BID PO Last administered on 03/25/19at 20:15; Admin Dose 6.25 MG; Start 03/25/19 at 21:00 EVERARDO OLIVEROS Mar 26, 2019 04:01
[2019-03-26] MEDS: INSULIN ASPART [NOVOLOG] 3 ML PEN SC SCH ×4 (07:55→21:10)
[2019-03-26] MEDS: SENNA/DOCUSATE NA (8.6MG/50MG) TAB PO SCH ×2 (09:00→21:03)
--- NOTE | 2019-03-26 09:05 | PN ---
DATE: 03/26/2019 SUBJECTIVE: The patient is stable, no events overnight. No fevers, chills, nausea, vomiting. OBJECTIVE: VITAL SIGNS: Blood pressure is 143/88, respirations 22, pulse 66, temperature 98.0. HEENT: Head is normocephalic. NECK: Supple. HEART: Regular rate. LUNGS: Show diminished breath sounds at the base. ABDOMEN: Soft, nontender to palpation without rebound or guarding. EXTREMITIES: Negative for clubbing, cyanosis, no edema. DERMATOLOGIC: No rashes. MUSCULOSKELETAL: No joint effusions. NEUROLOGIC: No change in exam. MEDICATIONS: The patient's medications have been reviewed. LABORATORY DATA: Has been reviewed. IMAGING STUDIES: Have been reviewed. ASSESSMENT AND PLAN: 1. Nonoliguric acute kidney injury on top of chronic kidney disease stage IV, etiology of HARMONY is sec ondary to hemodynamics. Renal function has been fluctuating, but overall stable. At this point, con euniceue current treatment plan, supportive care and renally dose all meds, no immediate need for renal placement therapy. The patient has no overt signs of uremia. 2. Anemia. Monitor hemoglobin and hematocrit levels. Continue Epogen. 3. Mineral bone disorder, monitor calcium and phosphorus levels. 4. Hypertension. Continue current blood pressure regimen. 5. Benign prostatic hypertrophy. Continue Flomax. 6. Atrial fibrillation. Continue medical management. 7. Diabetes. Continue current insulin regimen. 8. Dyslipidemia. Continue statin therapy. 9. Volume overload secondary to acute decompensated heart failure, advanced chronic kidney disease. The patient is currently on diuretic therapy. Continue current regimen. Continue to monitor volume status closely. 10. Arrhythmia, continue medical management, continue Eliquis. 11. History of cerebrovascular accident. Dictated By: NEO ABEL DO NR/NTS Conf#: [id number] DID#: [id number] CC: MONTY LENNON MD;*EndCC*
[2019-03-26] MEDS: FUROSEMIDE 20 MG TAB PO SCH (09:31)
[2019-03-26] MEDS: AMLODIPINE 10 MG TAB PO SCH (09:31)
[2019-03-26] MEDS: FERROUS SULFATE (EC) 325 MG TAB PO SCH (09:31)
[2019-03-26] MEDS: APIXABAN 5 MG TABLET PO SCH ×2 (09:32→21:04)
--- NOTE | 2019-03-26 11:05 | CONS ---
Assessment/Plan Assessment/Plan Hospital Course (Demo Recall) Acute decompensated diastolic congestive heart failure Atrial fibrillation with intermittent bradycardia Acute kidney injury with history of CKD Hypertension Diabetes Dyslipidemia Respiratory status improving, diuretics as per nephrology Carvedilol dose was decreased on 03/25/2019 given bradycardia, asymptomatic. Heart rate trend currently stable Continue statin therapy Continue anticoagulation if no contraindication Consultation Date/Type/Reason Admit Date/Time Mar 17, 2019 at 17:29 Initial Consult Date 03/18/19 Type of Consult Cardiology Requesting Provider: MONTY LENNON MD Date/Time of Note DATE: 03/26/19 TIME: 11:04 24 HR Interval Summary Free Text/Dictation No shortness of breath, palpitations Exam/Review of Systems Vital Signs Vitals Vital Signs Date Temp Pulse Resp B/P (MAP) Pulse Ox O2 O2 Flow FiO2 Time Delivery Rate 03/26/19 60 08:10 03/26/19 98.0 22 143/83 96 Room Air 07:53 (103) 03/23/19 2.0 08:00 Intake and Output 03/25/19 03/25/19 03/26/19 1414:59 22:59 06:59 IntakeIntake Total 650 ml OutputOutput Total 850 ml 150 ml BalanceBalance -200 ml -150 ml Exam Constitutional: alert, oriented (Sitting in chair) Respiratory: other (Coarse breath sounds bilaterally, no wheezing) Cardiovascular: irregular rhythm (S1-S2 heard) Gastrointestinal: soft, non-tender, bowel sounds Extremities: edema Labs Result Diagram: 03/23/19 0625 03/25/19 0549 Results 24hrs Laboratory Tests Test 03/25/19 11:34 03/25/19 17:40 03/25/19 20:11 Bedside Glucose 167 106 139 Medications Medications Current Medications Amlodipine Besylate (Norvasc) 10 mg DAILY PO Last administered on 03/26/19at 09:31; Admin Dose 10 MG; Start 03/18/19 at 09:00 Ferrous Sulfate (Ferrous Sulfate (Ec)) 325 mg QAM PO Last administered on 03/26/19at 09:31; Admin Dose 325 MG; Start 03/18/19 at 09:00 Tamsulosin HCl (Flomax) 0.4 mg HS PO Last administered on 03/25/19at 20:08; Admin Dose 0.4 MG; Start 03/18/19 at 21:00 Atorvastatin Calcium (Lipitor) 20 mg HS PO Last administered on 03/25/19at 20: 07; Admin Dose 20 MG; Start 03/18/19 at 21:00 Insulin Aspart (Novolog Insulin Pen) NOVOLOG *MILD* ALGORITHM WITH MEALS BEDTIME SC Last administered on 03/25/19at 12:02; Admin Dose 1 UNIT; Start 03/18/19 at 07:55 Acetaminophen (Tylenol Tab) 500 mg Q4H PRN PO MILD PAIN(1-3)OR ELEVATED TEMP; Start 03/17/19 at 23:30 Senna/Docusate Sodium (Senokot-S) 2 tab BID PO Last administered on 03/25/19at 20:08; Admin Dose 2 TAB; Start 03/18/19 at 09:00 Nitroglycerin (Nitroglycerin (Sl Tab) 0.4 Mg) 1 tab Q5M PRN SL ANGINA; Start 03/17/19 at 23:30 Miscellaneous Information 1 ea NOTE XX ; Start 03/17/19 at 23:25 Glucose (Glutose) 15 gm Q15M PRN PO DECREASED GLUCOSE; Start 03/17/19 at 23:25 Glucose (Glutose) 22.5 gm Q15M PRN PO DECREASED GLUCOSE; Start 03/17/19 at 23:25 Dextrose (D50w Syringe) 25 ml Q15M PRN IV DECREASED GLUCOSE; Start 03/17/19 at 23:25 Dextrose (D50w Syringe) 50 ml Q15M PRN IV DECREASED GLUCOSE; Start 03/17/19 at 23:25 Glucagon (Glucagen) 1 mg Q15M PRN IM DECREASED GLUCOSE; Start 03/17/19 at 23:25 Glucose (Glutose) 15 gm Q15M PRN BUCCAL DECREASED GLUCOSE; Start 03/17/19 at 23:25 Apixaban (Eliquis) 2.5 mg BID PO Last administered on 03/26/19at 09:32; Admin Dose 2.5 MG; Start 03/19/19 at 21:00 Hydralazine HCl (Apresoline) 10 mg Q4H PRN IV SBP more than 150 mm hg ; Start 03/19/19 at 20:00 Furosemide (Lasix) 20 mg DAILY PO Last administered on 03/26/19at 09:31; Admin Dose 20 MG; Start 03/25/19 at 09:00 Carvedilol (Coreg) 6.25 mg BID PO Last administered on 03/26/19at 09:32; Admin Dose 6.25 MG; Start 03/25/19 at 21:00 Gilson Cortez DO Mar 26, 2019 11:05
[2019-03-26] MEDS: TAMSULOSIN (SR) 0.4 MG CAP PO SCH (21:03)
[2019-03-26] MEDS: ATORVASTATIN 20 MG TAB PO SCH (21:03)
[2019-03-27] VITALS (11 sets, daily range): BP systolic 128–154; BP diastolic 63–83; PULSE 54–88; RESP 18–22
[2019-03-27] MEDS: INSULIN ASPART [NOVOLOG] 3 ML PEN SC SCH ×4 (07:55→20:44)
[2019-03-27] MEDS: APIXABAN 5 MG TABLET PO SCH ×2 (08:29→20:44)
[2019-03-27] MEDS: AMLODIPINE 10 MG TAB PO SCH (08:29)
[2019-03-27] MEDS: SENNA/DOCUSATE NA (8.6MG/50MG) TAB PO SCH ×3 (08:29→20:45)
[2019-03-27] MEDS: FUROSEMIDE 20 MG TAB PO SCH (08:29)
[2019-03-27] MEDS: FERROUS SULFATE (EC) 325 MG TAB PO SCH (08:30)
--- NOTE | 2019-03-27 09:47 | CONS ---
Assessment/Plan Assessment/Plan Assessment/Plan (Daily) cute decompensated diastolic congestive heart failure Atrial fibrillation with intermittent bradycardia Acute kidney injury with history of CKD Hypertension Diabetes Dyslipidemia Respiratory status improving, diuretics as per nephrology Carvedilol dose was decreased on 03/25/2019 given bradycardia, asymptomatic. Heart rate trend currently stable Continue statin therapy Continue anticoagulation if no contraindication d/c planning Consultation Date/Type/Reason Admit Date/Time Mar 17, 2019 at 17:29 Initial Consult Date 03/18/19 Type of Consult Cardiology Requesting Provider: MONTY LENNON MD Date/Time of Note DATE: 03/27/19 TIME: 09:46 24 HR Interval Summary Free Text/Dictation the patient with no cahnge Exam/Review of Systems Vital Signs Vitals Vital Signs Date Temp Pulse Resp B/P (MAP) Pulse Ox O2 O2 Flow FiO2 Time Delivery Rate 03/27/19 77 08:11 03/27/19 98.4 19 154/83 98 Room Air 07:08 (106) 03/23/19 2.0 08:00 Intake and Output 03/26/19 03/26/19 03/27/19 1515:00 23:00 07:00 IntakeIntake Total 680 ml 550 ml OutputOutput Total 800 ml BalanceBalance 680 ml -250 ml Labs Result Diagram: 03/23/19 0625 03/27/19 0613 Results 24hrs Laboratory Tests Test 03/26/19 20:34 03/27/19 06:13 Bedside Glucose 182 Sodium Level 139 Potassium Level 4.9 Chloride Level 105 Carbon Dioxide Level 21 Anion Gap 13 Blood Urea Nitrogen 65 H Creatinine 4.47 H Est Glomerular Filtrat Rate mL/min Glucose Level 114 Calcium Level 9.4 Medications Medications Current Medications Amlodipine Besylate (Norvasc) 10 mg DAILY PO Last administered on 03/27/19at 08:29; Admin Dose 10 MG; Start 03/18/19 at 09:00 Ferrous Sulfate (Ferrous Sulfate (Ec)) 325 mg QAM PO Last administered on 03/27/19at 08:30; Admin Dose 325 MG; Start 03/18/19 at 09:00 Tamsulosin HCl (Flomax) 0.4 mg HS PO Last administered on 03/26/19at 21:03; Admin Dose 0.4 MG; Start 03/18/19 at 21:00 Atorvastatin Calcium (Lipitor) 20 mg HS PO Last administered on 03/26/19at 21:03; Admin Dose 20 MG; Start 03/18/19 at 21:00 Insulin Aspart (Novolog Insulin Pen) NOVOLOG *MILD* ALGORITHM WITH MEALS BEDTIME SC Last administered on 03/26/19at 21:10; Admin Dose 1 UNIT; Start 03/18/19 at 07:55 Acetaminophen (Tylenol Tab) 500 mg Q4H PRN PO MILD PAIN(1-3)OR ELEVATED TEMP; Start 03/17/19 at 23:30 Senna/Docusate Sodium (Senokot-S) 2 tab BID PO Last administered on 03/27/19at 08:29; Admin Dose 2 TAB; Start 03/18/19 at 09:00 Nitroglycerin (Nitroglycerin (Sl Tab) 0.4 Mg) 1 tab Q5M PRN SL ANGINA; Start 03/17/19 at 23:30 Miscellaneous Information 1 ea NOTE XX ; Start 03/17/19 at 23:25 Glucose (Glutose) 15 gm Q15M PRN PO DECREASED GLUCOSE; Start 03/17/19 at 23:25 Glucose (Glutose) 22.5 gm Q15M PRN PO DECREASED GLUCOSE; Start 03/17/19 at 23:25 Dextrose (D50w Syringe) 25 ml Q15M PRN IV DECREASED GLUCOSE; Start 03/17/19 at 23:25 Dextrose (D50w Syringe) 50 ml Q15M PRN IV DECREASED GLUCOSE; Start 03/17/19 at 23:25 Glucagon (Glucagen) 1 mg Q15M PRN IM DECREASED GLUCOSE; Start 03/17/19 at 23:25 Glucose (Glutose) 15 gm Q15M PRN BUCCAL DECREASED GLUCOSE; Start 03/17/19 at 23:25 Apixaban (Eliquis) 2.5 mg BID PO Last administered on 03/27/19at 08:29; Admin Dose 2.5 MG; Start 03/19/19 at 21:00 Hydralazine HCl (Apresoline) 10 mg Q4H PRN IV SBP more than 150 mm hg ; Start 03/19/19 at 20:00 Furosemide (Lasix) 20 mg DAILY PO Last administered on 03/27/19at 08:29; Admin Dose 20 MG; Start 03/25/19 at 09:00 Carvedilol (Coreg) 6.25 mg BID PO Last administered on 03/27/19at 08:30; Admin Dose 6.25 MG; Start 03/25/19 at 21:00 MANDY BERUMEN MD Mar 27, 2019 09:47
--- NOTE | 2019-03-27 10:41 | DS ---
Date/Time of Note Date/Time of Note DATE: 03/27/19 TIME: 10:39 Discharge Summary Admission/Discharge Info Admit Date/Time Mar 17, 2019 at 17:29 Discharge Date/Time 03/27/19 Discharge Diagnosis -Chest pain, rule out acute coronary syndrome, troponin is negative x 3, 2D echo with preserved ejection fraction of 55%. Dr. Cortez is following in cardiology consultation. -Acute decompensated diastolic congestive heart failure. Continue Lasix, monitor electrolytes. 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 Dr. Johnson is following in nephrology consultation. -Atrial fibrillation. Continue aspirin. -Hypertension. -CAD, hx of VT. -Diabetes mellitus type 2 -History of stroke with right-sided weakness. -Hx of TURP Patient Condition: Fair Consults Cardiology Procedures none Hx of Present Illness Patient with CAD and CHF comes in with chest pain. Hospital Course Patient with CAD and CHF comes in with chest pain. Patient was evaluated by cardiology, he was treated medically and patient was felt to be stable for discharge Home Meds Reported Medications Simvastatin* (Zocor*) 20 Mg Tablet, 20 MG PO QHS, #30 TAB 03/17/19 Aspirin* (Aspirin* EC) 325 Mg Tab, 325 MG PO DAILY, TAB 03/17/19 Metformin Hcl* (Metformin Hcl*) 850 Mg Tablet, 850 MG PO WITH BREAKFAST DINNE, #60 TAB 03/17/19 Tamsulosin Hcl* (Flomax*) 0.4 Mg Cap.er.24h, 0.4 MG PO HS, CAP 03/17/19 Carvedilol* (Carvedilol*) 12.5 Mg Tablet, 12.5 MG PO BID, #60 TAB 03/17/19 Ferrous Sulfate* (Ferrous Sulfate*) 325 Mg Tabec, 325 MG PO TID, TAB 03/17/19 Amlodipine Besylate* (Amlodipine Besylate*) 10 Mg Tablet, 10 MG PO DAILY, #30 TAB 03/17/19 Primary Care Provider Not On Staff Doctor Pending Labs Laboratory Tests Test 03/26/19 20:34 03/27/19 06:13 Bedside Glucose 182 mg/dL (70-220) Sodium Level 139 mmol/L (135-144) Potassium Level 4.9 mmol/L (3.5-5.1) Chloride Level 105 mmol/L (97-110) Carbon Dioxide Level 21 mmol/L (21-31) Anion Gap 13 (5-13) Blood Urea Nitrogen 65 mg/dl (7-20) Creatinine 4.47 mg/dl (0.61-1.24) Est Glomerular Filtrat Rate mL/min mL/min (>60) Glucose Level 114 mg/dl (70-220) Calcium Level 9.4 mg/dl (8.4-10.2) BEBE BOSCH Mar 27, 2019 10:41
--- NOTE | 2019-03-27 12:32 | CONS ---
Assessment/Plan Assessment/Plan Hospital Course (Demo Recall) 1. Nonoliguric acute kidney injury on top of chronic kidney disease stage IV, etiology of HARMONY is secondary to hemodynamics. Renal function has been fluctuating, but overall stable. At this point, continue current treatment plan, supportive care and renally dose all meds, no immediate need for renal placement therapy. The patient has no overt signs of uremia. 2. Anemia. Monitor hemoglobin and hematocrit levels. Continue Epogen. 3. Mineral bone disorder, monitor calcium and phosphorus levels. 4. Hypertension. Continue current blood pressure regimen. 5. Benign prostatic hypertrophy. Continue Flomax. 6. Atrial fibrillation. Continue medical management. 7. Diabetes. Continue current insulin regimen. 8. Dyslipidemia. Continue statin therapy. 9. Volume overload secondary to acute decompensated heart failure, advanced chronic kidney disease. The patient is currently on diuretic therapy. Continue current regimen. Continue to monitor volume status closely. 10. Arrhythmia, continue medical management, continue Eliquis. 11. History of cerebrovascular accident. Consultation Date/Type/Reason Admit Date/Time Mar 17, 2019 at 17:29 Initial Consult Date 03/18/19 Requesting Provider: MONTY LENNON MD Date/Time of Note DATE: 03/27/19 TIME: 12:31 24 HR Interval Summary Free Text/Dictation shortness of breath improving denies n/v or urinary issues d/w rn gen nad cv rrr pulm ctab abd soft, nd, nt +bs ext: no edema Exam/Review of Systems Exam Vitals Vital Signs Date Temp Pulse Resp B/P (MAP) Pulse Ox O2 O2 Flow FiO2 Time Delivery Rate 03/27/19 54 12:09 03/27/19 97.9 19 146/71 98 Room Air 11:09 (96) 03/23/19 2.0 08:00 Intake and Output 03/26/19 03/26/19 03/27/19 1515:00 23:00 07:00 IntakeIntake Total 680 ml 550 ml OutputOutput Total 800 ml BalanceBalance 680 ml -250 ml Results Result Diagram: 03/23/19 0625 03/27/19 0613 Results 24hrs Laboratory Tests Test 03/26/19 20:34 03/27/19 06:13 03/27/19 11:56 Bedside Glucose 182 125 Sodium Level 139 Potassium Level 4.9 Chloride Level 105 Carbon Dioxide Level 21 Anion Gap 13 Blood Urea Nitrogen 65 H Creatinine 4.47 H Est Glomerular Filtrat Rate mL/min Glucose Level 114 Calcium Level 9.4 Medications Medication Current Medications Amlodipine Besylate (Norvasc) 10 mg DAILY PO Last administered on 03/27/19 08:29; Admin Dose 10 MG; Start 03/18/19 at 09:00 Ferrous Sulfate (Ferrous Sulfate (Ec)) 325 mg QAM PO Last administered on 03/27/19 08:30; Admin Dose 325 MG; Start 03/18/19 at 09:00 Tamsulosin HCl (Flomax) 0.4 mg HS PO Last administered on 03/26/19 21:03; Admin Dose 0.4 MG; Start 03/18/19 at 21:00 Atorvastatin Calcium (Lipitor) 20 mg HS PO Last administered on 03/26/19 21:03; Admin Dose 20 MG; Start 03/18/19 at 21:00 Insulin Aspart (Novolog Insulin Pen) NOVOLOG *MILD* ALGORITHM WITH MEALS BEDTIME SC Last administered on 03/26/19 21:10; Admin Dose 1 UNIT; Start 03/18/19 at 07:55 Acetaminophen (Tylenol Tab) 500 mg Q4H PRN PO MILD PAIN(1-3)OR ELEVATED TEMP; Start 03/17/19 at 23:30 Senna/Docusate Sodium (Senokot-S) 2 tab BID PO Last administered on 03/27/19 08:29; Admin Dose 2 TAB; Start 03/18/19 at 09:00 Nitroglycerin (Nitroglycerin (Sl Tab) 0.4 Mg) 1 tab Q5M PRN SL ANGINA; Start 03/17/19 at 23:30 Miscellaneous Information 1 ea NOTE XX ; Start 03/17/19 at 23:25 Glucose (Glutose) 15 gm Q15M PRN PO DECREASED GLUCOSE; Start 03/17/19 at 23:25 Glucose (Glutose) 22.5 gm Q15M PRN PO DECREASED GLUCOSE; Start 03/17/19 at 23:25 Dextrose (D50w Syringe) 25 ml Q15M PRN IV DECREASED GLUCOSE; Start 03/17/19 at 23:25 Dextrose (D50w Syringe) 50 ml Q15M PRN IV DECREASED GLUCOSE; Start 03/17/19 at 23:25 Glucagon (Glucagen) 1 mg Q15M PRN IM DECREASED GLUCOSE; Start 03/17/19 at 23:25 Glucose (Glutose) 15 gm Q15M PRN BUCCAL DECREASED GLUCOSE; Start 03/17/19 at 23:25 Apixaban (Eliquis) 2.5 mg BID PO Last administered on 03/27/19 08:29; Admin Dose 2.5 MG; Start 03/19/19 at 21:00 Hydralazine HCl (Apresoline) 10 mg Q4H PRN IV SBP more than 150 mm hg ; Start 03/19/19 at 20:00 Furosemide (Lasix) 20 mg DAILY PO Last administered on 03/27/19 08:29; Admin Dose 20 MG; Start 03/25/19 at 09:00 Carvedilol (Coreg) 6.25 mg BID PO Last administered on 03/27/19 08:30; Admin Dose 6.25 MG; Start 03/25/19 at 21:00 BAILEY MARISCAL MD Mar 27, 2019 12:32
[2019-03-27] MEDS: ATORVASTATIN 20 MG TAB PO SCH (20:43)
[2019-03-27] MEDS: TAMSULOSIN (SR) 0.4 MG CAP PO SCH (20:44)
[2019-03-28] VITALS (8 sets, daily range): BP systolic 124–136; BP diastolic 63–80; PULSE 53–93; RESP 18–20
[2019-03-28] MEDS: INSULIN ASPART [NOVOLOG] 3 ML PEN SC SCH ×2 (07:55→11:50)
[2019-03-28] MEDS: APIXABAN 5 MG TABLET PO SCH (08:55)
[2019-03-28] MEDS: FERROUS SULFATE (EC) 325 MG TAB PO SCH (08:56)
[2019-03-28] MEDS: SENNA/DOCUSATE NA (8.6MG/50MG) TAB PO SCH (08:56)
[2019-03-28] MEDS: AMLODIPINE 10 MG TAB PO SCH (08:56)
[2019-03-28] MEDS: FUROSEMIDE 20 MG TAB PO SCH (08:56)
--- NOTE | 2019-03-28 10:52 | PN ---
Date/Time of Note Date/Time of Note DATE: 03/28/19 TIME: 10:52 Assessment/Plan VTE Prophylaxis Risk score (from Ns)>0 risk: 4 SCD applied (from Ns): No SCD contraindicated: other Pharmacological prophylaxis: LMWH Lines/Catheters IV [facility]ter Type [facility]from [facility]): Peripheral IV Urinary Cath still in place: No Assessment/Plan Hospital Course Patient with CAD and CHF comes in with chest pain. Patient was evaluated by cardiology, he was treated medically and patient was felt to be stable for discharge Result Diagram: 03/27/19 0613 Results 24hrs Laboratory Tests Test 03/27/19 11:56 Bedside Glucose 125 Subjective 24 Hr Interval Summary Free Text/Dictation Patient was to be discharged yesterday but he didn't have anyone to pick him up. Exam/Review of Systems Exam Vitals Vital Signs Date Temp Pulse Resp B/P (MAP) Pulse Ox O2 O2 Flow FiO2 Time Delivery Rate 03/28/19 74 08:00 03/28/19 98.5 18 136/79 98 Room Air 07:28 (98) Intake and Output 03/27/19 03/27/19 03/28/19 1515:00 23:00 07:00 IntakeIntake Total 800 ml 600 ml OutputOutput Total 1000 ml 700 ml BalanceBalance -200 ml -100 ml Constitutional: well developed Head: normocephalic, atraumatic Neck: supple Respiratory: clear to auscultation Cardiovascular: regular rate and rhythm Gastrointestinal: soft, non-tender Extremities: normal pulses Results Results 24hrs Laboratory Tests Test 03/27/19 11:56 Bedside Glucose 125 Medications Medication Current Medications Amlodipine Besylate (Norvasc) 10 mg DAILY PO Last administered on 03/28/19at 08:56; Admin Dose 10 MG; Start 03/18/19 at 09:00 Ferrous Sulfate (Ferrous Sulfate (Ec)) 325 mg QAM PO Last administered on 03/28/19at 08:56; Admin Dose 325 MG; Start 03/18/19 at 09:00 Tamsulosin HCl (Flomax) 0.4 mg HS PO Last administered on 03/27/19at 20:44; A dmin Dose 0.4 MG; Start 03/18/19 at 21:00 Atorvastatin Calcium (Lipitor) 20 mg HS PO Last administered on 03/27/19at 20:43; Admin Dose 20 MG; Start 03/18/19 at 21:00 Insulin Aspart (Novolog Insulin Pen) NOVOLOG *MILD* ALGORITHM WITH MEALS BEDTIME SC Last administered on 03/26/19at 21:10; Admin Dose 1 UNIT; Start 03/18/19 at 07:55 Acetaminophen (Tylenol Tab) 500 mg Q4H PRN PO MILD PAIN(1-3)OR ELEVATED TEMP; Start 03/17/19 at 23:30 Senna/Docusate Sodium (Senokot-S) 2 tab BID PO Last administered on 03/28/19at 08:56; Admin Dose 2 TAB; Start 03/18/19 at 09:00 Nitroglycerin (Nitroglycerin (Sl Tab) 0.4 Mg) 1 tab Q5M PRN SL ANGINA; Start 03/17/19 at 23:30 Miscellaneous Information 1 ea NOTE XX ; Start 03/17/19 at 23:25 Glucose (Glutose) 15 gm Q15M PRN PO DECREASED GLUCOSE; Start 03/17/19 at 23:25 Glucose (Glutose) 22.5 gm Q15M PRN PO DECREASED GLUCOSE; Start 03/17/19 at 23:25 Dextrose (D50w Syringe) 25 ml Q15M PRN IV DECREASED GLUCOSE; Start 03/17/19 at 23:25 Dextrose (D50w Syringe) 50 ml Q15M PRN IV DECREASED GLUCOSE; Start 03/17/19 at 23:25 Glucagon (Glucagen) 1 mg Q15M PRN IM DECREASED GLUCOSE; Start 03/17/19 at 23:25 Glucose (Glutose) 15 gm Q15M PRN BUCCAL DECREASED GLUCOSE; Start 03/17/19 at 23:25 Apixaban (Eliquis) 2.5 mg BID PO Last administered on 03/28/19at 08:55; Admin Dose 2.5 MG; Start 03/19/19 at 21:00 Hydralazine HCl (Apresoline) 10 mg Q4H PRN IV SBP more than 150 mm hg ; Start 03/19/19 at 20:00 Furosemide (Lasix) 20 mg DAILY PO Last administered on 03/28/19 08:56; Admin Dose 20 MG; Start 03/25/19 at 09:00 Carvedilol (Coreg) 6.25 mg BID PO Last administered on 03/28/19at 08:55; Admin Dose 6.25 MG; Start 03/25/19 at 21:00 BEBE BOSCH Mar 28, 2019 10:52
--- NOTE | 2019-03-28 10:59 | CONS ---
Consultation Date/Type/Reason Admit Date/Time Mar 17, 2019 at 17:29 Initial Consult Date 03/18/19 Type of Consult Cardiology Requesting Provider: MONYT LENNON MD Date/Time of Note DATE: 03/28/19 TIME: 10:58 24 HR Interval Summary Free Text/Dictation Acute decompensated diastolic congestive heart failure Atrial fibrillation with intermittent bradycardia Acute kidney injury with history of CKD Hypertension Diabetes Dyslipidemia Respiratory status improving, diuretics as per nephrology Carvedilol dose was decreased on 03/25/2019 given bradycardia, asymptomatic. Heart rate trend currently stable Continue statin therapy Continue eliquis Exam/Review of Systems Vital Signs Vitals Vital Signs Date Temp Pulse Resp B/P (MAP) Pulse Ox O2 O2 Flow FiO2 Time Delivery Rate 03/28/19 74 08:00 03/28/19 98.5 18 136/79 98 Room Air 07:28 (98) Intake and Output 03/27/19 03/27/19 03/28/19 1515:00 23:00 07:00 IntakeIntake Total 800 ml 600 ml OutputOutput Total 1000 ml 700 ml BalanceBalance -200 ml -100 ml Labs Result Diagram: 03/27/19 0613 Results 24hrs Laboratory Tests Test 03/27/19 11:56 Bedside Glucose 125 Medications Medications Current Medications Amlodipine Besylate (Norvasc) 10 mg DAILY PO Last administered on 03/28/19at 08:56; Admin Dose 10 MG; Start 03/18/19 at 09:00 Ferrous Sulfate (Ferrous Sulfate (Ec)) 325 mg QAM PO Last administered on 03/28/19at 08:56; Admin Dose 325 MG; Start 03/18/19 at 09:00 Tamsulosin HCl (Flomax) 0.4 mg HS PO Last administered on 03/27/19at 20:44; Admin Dose 0.4 MG; Start 03/18/19 at 21:00 Atorvastatin Calcium (Lipitor) 20 mg HS PO Last administered on 03/27/19at 20:43; Admin Dose 20 MG; Start 03/18/19 at 21:00 Insulin Aspart (Novolog Insulin Pen) NOVOLOG *MILD* ALGORITHM WITH MEALS BEDTIME SC Last administered on 03/26/19at 21:10; Admin Dose 1 UNIT; Start 03/18/19 at 07:55 Acetaminophen (Tylenol Tab) 500 mg Q4H PRN PO MILD PAIN(1-3)OR ELEVATED TEMP; Start 03/17/19 at 23:30 Senna/Docusate Sodium (Senokot-S) 2 tab BID PO Last administered on 03/28/19at 08:56; Admin Dose 2 TAB; Start 03/18/19 at 09:00 Nitroglycerin (Nitroglycerin (Sl Tab) 0.4 Mg) 1 tab Q5M PRN SL ANGINA; Start 03/17/19 at 23:30 Miscellaneous Information 1 ea NOTE XX ; Start 03/17/19 at 23:25 Glucose (Glutose) 15 gm Q15M PRN PO DECREASED GLUCOSE; Start 03/17/19 at 23:25 Glucose (Glutose) 22.5 gm Q15M PRN PO DECREASED GLUCOSE; Start 03/17/19 at 23:25 Dextrose (D50w Syringe) 25 ml Q15M PRN IV DECREASED GLUCOSE; Start 03/17/19 at 23:25 Dextrose (D50w Syringe) 50 ml Q15M PRN IV DECREASED GLUCOSE; Start 03/17/19 at 23:25 Glucagon (Glucagen) 1 mg Q15M PRN IM DECREASED GLUCOSE; Start 03/17/19 at 23:25 Glucose (Glutose) 15 gm Q15M PRN BUCCAL DECREASED GLUCOSE; Start 03/17/19 at 23 :25 Apixaban (Eliquis) 2.5 mg BID PO Last administered on 03/28/19at 08:55; Admin Dose 2.5 MG; Start 03/19/19 at 21:00 Hydralazine HCl (Apresoline) 10 mg Q4H PRN IV SBP more than 150 mm hg ; Start 03/19/19 at 20:00 Furosemide (Lasix) 20 mg DAILY PO Last administered on 03/28/19at 08:56; Admin Dose 20 MG; Start 03/25/19 at 09:00 Carvedilol (Coreg) 6.25 mg BID PO Last administered on 03/28/19at 08:55; Admin Dose 6.25 MG; Start 03/25/19 at 21:00 ALLEN MCCRAY MD Mar 28, 2019 10:59
--- NOTE | 2019-03-28 12:53 | CONS ---
Assessment/Plan Assessment/Plan Hospital Course (Demo Recall) 1. Nonoliguric acute kidney injury on top of chronic kidney disease stage IV, etiology of HARMONY is secondary to hemodynamics. Renal function has been fluctuating, but overall stable. At this point, continue current treatment plan, supportive care and renally dose all meds, no immediate need for renal placement therapy. The patient has no overt signs of uremia. 2. Anemia. Monitor hemoglobin and hematocrit levels. Continue Epogen. 3. Mineral bone disorder, monitor calcium and phosphorus levels. 4. Hypertension. Continue current blood pressure regimen. 5. Benign prostatic hypertrophy. Continue Flomax. 6. Atrial fibrillation. Continue medical management. 7. Diabetes. Continue current insulin regimen. 8. Dyslipidemia. Continue statin therapy. 9. Volume overload secondary to acute decompensated heart failure, advanced chronic kidney disease. improved. cont lasix po 10. Arrhythmia, continue medical management, continue Eliquis. 11. History of cerebrovascular accident. Consultation Date/Type/Reason Admit Date/Time Mar 17, 2019 at 17:29 Initial Consult Date 03/18/19 Requesting Provider: MONTY LENNON MD Date/Time of Note DATE: 03/28/19 TIME: 12:52 24 HR Interval Summary Free Text/Dictation shortness of breath improving denies urinary issues d/w rn gen nad cv rrr pulm bibasilar rales abd soft, nd, nt +bs ext: no edema Exam/Review of Systems Exam Vitals Vital Signs Date Temp Pulse Resp B/P (MAP) Pulse Ox O2 O2 Flow FiO2 Time Delivery Rate 03/28/19 62 12:00 03/28/19 98.0 132/63 98 Room Air 11:17 (86) 03/28/19 18 07:28 Intake and Output 03/27/19 03/27/19 03/28/19 1515:00 23:00 07:00 IntakeIntake Total 800 ml 600 ml OutputOutput Total 1000 ml 700 ml BalanceBalance -200 ml -100 ml Results Result Diagram: 03/27/19 0613 Medications Medication Current Medications Amlodipine Besylate (Norvasc) 10 mg DAILY PO Last administered on 03/28/19at 08:56; Admin Dose 10 MG; Start 03/18/19 at 09:00 Ferrous Sulfate (Ferrous Sulfate (Ec)) 325 mg QAM PO Last administered on 03/28/19at 08:56; Admin Dose 325 MG; Start 03/18/19 at 09:00 Tamsulosin HCl (Flomax) 0.4 mg HS PO Last administered on 03/27/19at 20:44; Admin Dose 0.4 MG; Start 03/18/19 at 21:00 Atorvastatin Calcium (Lipitor) 20 mg HS PO Last administered on 03/27/19at 20:43; Admin Dose 20 MG; Start 03/18/19 at 21:00 Insulin Aspart (Novolog Insulin Pen) NOVOLOG *MILD* ALGORITHM WITH MEALS BEDTIME SC Last administered on 03/26/19at 21:10; Admin Dose 1 UNIT; Start 03/18/19 at 07:55 Acetaminophen (Tylenol Tab) 500 mg Q4H PRN PO MILD PAIN(1-3)OR ELEVATED TEMP; Start 03/17/19 at 23:30 Senna/Docusate Sodium (Senokot-S) 2 tab BID PO Last administered on 03/28/19at 08:56; Admin Dose 2 TAB; Start 03/18/19 at 09:00 Nitroglycerin (Nitroglycerin (Sl Tab) 0.4 Mg) 1 tab Q5M PRN SL ANGINA; Start 03/17/19 at 23:30 Miscellaneous Information 1 ea NOTE XX ; Start 03/17/19 at 23:25 Glucose (Glutose) 15 gm Q15M PRN PO DECREASED GLUCOSE; Start 03/17/19 at 23:25 Glucose (Glutose) 22.5 gm Q15M PRN PO DECREASED GLUCOSE; Start 03/17/19 at 23:25 Dextrose (D50w Syringe) 25 ml Q15M PRN IV DECREASED GLUCOSE; Start 03/17/19 at 23:25 Dextrose (D50w Syringe) 50 ml Q15M PRN IV DECREASED GLUCOSE; Start 03/17/19 at 23:25 Glucagon (Glucagen) 1 mg Q15M PRN IM DECREASED GLUCOSE; Start 03/17/19 at 23:25 Glucose (Glutose) 15 gm Q15M PRN BUCCAL DECREASED GLUCOSE; Start 03/17/19 at 23:25 Apixaban (Eliquis) 2.5 mg BID PO Last administered on 03/28/19at 08:55; Admin Dose 2.5 MG; Start 03/19/19 at 21:00 Hydralazine HCl (Apresoline) 10 mg Q4H PRN IV SBP more than 150 mm hg ; Start 03/19/19 at 20:00 Furosemide (Lasix) 20 mg DAILY PO Last administered on 03/28/19at 08:56; Admin Dose 20 MG; Start 03/25/19 at 09:00 Carvedilol (Coreg) 6.25 mg BID PO Last administered on 03/28/19at 08:55; Admin Dose 6.25 MG; Start 03/25/19 at 21:00 BAILEY MARISCAL MD Mar 28, 2019 12:53
== END 2019-03-28 13:43 | disposition home or self-care (01) | DRG 291 ==
LOC: E/R 12:38 → TEL 17:29
PROVIDERS: ADMIT Internal Medicine; ATTEND Internal Medicine
DX: I13.2 Hypertensive heart and chronic kidney disease with heart failure and with stage 5 chronic kidney disease, or end stage renal disease (principal); I50.33 Acute on chronic diastolic (congestive) heart failure; N17.9 Acute kidney failure, unspecified; N18.5 Chronic kidney disease, stage 5; I69.351 Hemiplegia and hemiparesis following cerebral infarction affecting right dominant side; I24.9 Acute ischemic heart disease, unspecified; E11.21 Type 2 diabetes mellitus with diabetic nephropathy; E11.65 Type 2 diabetes mellitus with hyperglycemia; E11.22 Type 2 diabetes mellitus with diabetic chronic kidney disease; D63.1 Anemia in chronic kidney disease; E78.5 Hyperlipidemia, unspecified; I48.2 Chronic atrial fibrillation; I25.10 Atherosclerotic heart disease of native coronary artery without angina pectoris; N40.0 Benign prostatic hyperplasia without lower urinary tract symptoms; I25.2 Old myocardial infarction; Z79.84 Long term (current) use of oral hypoglycemic drugs; Z79.82 Long term (current) use of aspirin
CPT/HCPCS: 36415; 71045; 71250; 76775; 80048; 80053; 80061; 81001; 82962; 83036; 84443; 84484; 85025; 93005; 93306; 97162; J1815; J1940